=== PATIENT | male | born 1935 | race Caucasian/White ===

== ENCOUNTER 2018-06-15 19:46 | Inpatient (IN) | payer MEDICARE, OTHER ==
[2018-06-15] MEDS ORDERED: IPRATROPIUM/ALBUTEROL 0.5-2.5 MG/3 ML AMPUL NEB ONE (20:14)
[2018-06-15 20:22] LABS: ABSOLUTE BASOPHILS # (AUTO) 0.1 10^3/uL (0.0-0.2); ABSOLUTE EOSINOPHILS # (AUTO) 0.1 10^3/uL (0.0-0.6); ABSOLUTE LYMPHOCYTES (AUTO) 1.7 10^3/uL (0.5-4.7); ABSOLUTE MONOCYTES (AUTO) 1.4 10^3/uL (0.1-1.4); ABSOLUTE NEUT (AUTO) 6.2 10^3/uL (1.7-8.2); BASOPHILS % (AUTO) 0.7 % (0-2); HEMATOCRIT 36.6 % (37.9-51.0); HEMOGLOBIN 12.3 g/dL (13.5-17.0); LYMPHOCYTES % (AUTO) 17.5 % (13-45); MEAN CORPUSCULAR HEMOGLOBIN 33.1 pg (27.0-33.4); MEAN CORPUSCULAR HGB CONC 33.6 g/dL (32.0-36.0); MEAN CORPUSCULAR VOLUME 98 fl (80-97); MONOCYTES % (AUTO) 15.2 % (3-13); PLATELET COUNT 218 10^3/uL (150-450); RED BLOOD COUNT 3.72 10^6/uL (4.35-5.55); RED CELL DISTRIBUTION WIDTH 13.7 % (11.5-14.0); SEGMENTED NEUTROPHILS % (AUTO) 65.6 % (42-78); TOTAL CELLS COUNTED % (AUTO) 100 %; WHITE BLOOD COUNT 9.5 10^3/uL (4.0-10.5)
--- NOTE | 2018-06-15 20:24 | ER Document Report ---
ED General - General Chief Complaint: Shortness Of Breath Stated Complaint: SHORTNESS OF BREATH Time Seen by Provider: 06/15/18 19:51 Notes: Patient is an 83-year-old male with a past medical history of COPD, hypertension, presents complaining of 3 days of progressively worsening shortness of breath. Patient reports that he has been using his Advair inhaler but does not have a rescue albuterol inhaler at home. Family states that his work of breathing progressively worsened to the point where EMS was contacted today. Patient states that he feels somewhat improved after receiving nebulizers and steroids from EMS. Exertion seems to worsen his symptoms. The patient apparently had worsening of his symptoms after pesticides were sprayed near his home and this may be the trigger for his worsening shortness of breath per family. The patient has not had fever but has had intermittent cough without sputum production. Denies a history of such a severe exacerbation in the has not seen his primary care physician regarding today's concerns. - Related Data Allergies/Adverse Reactions: No Known Allergies Allergy (Unverified 06/15/18 20:07) Past Medical History - General Information source: Patient - Social History Smoking Status: Former Smoker Frequency of alcohol use: None Drug Abuse: None Lives with: Family Family History: Reviewed & Not Pertinent Patient has suicidal ideation: No Patient has homicidal ideation: No - Past Medical History Cardiac Medical History: Reports: Hx Atrial Fibrillation, Hx Hypertension Pulmonary Medical History: Reports: Hx COPD Renal/ Medical History: Denies: Hx Peritoneal Dialysis Review of Systems - Review of Systems Notes: Constitutional: Negative for fever. HENT: Negative for sore throat. Eyes: Negative for visual changes. Cardiovascular: Negative for chest pain. Respiratory: Positive for shortness of breath. Gastrointestinal: Negative for abdominal pain, vomiting or diarrhea. Genitourinary: Negative for dysuria. Musculoskeletal: Negative for back pain. Skin: Negative for rash. Neurological: Negative for headaches, weakness or numbness. 10 point ROS negative except as marked above and in HPI. Physical Exam - Vital signs Vitals: Resp Pulse Ox 26 H 95 06/15/18 19:50 06/15/18 19:50 Interpretation: Tachypneic Notes: PHYSICAL EXAMINATION: GENERAL: Elderly male, mildly unwell and in mild respiratory distress HEAD: Atraumatic, normocephalic. EYES: Pupils equal round and reactive to light, extraocular movements intact, sclera anicteric, conjunctiva are normal. ENT: nares patent, oropharynx clear without exudates. Moderately dry mucous membranes. NECK: Normal range of motion, supple without lymphadenopathy LUNGS: Mild respiratory distress, pursed lip breathing, tachypneic rates into the upper 20s with diminished air movement in all lung ramos and coarse expiratory wheezing throughout. HEART: Regular rate and rhythm, 4/6 systolic ejection murmur ABDOMEN: Soft, nontender, normoactive bowel sounds. No guarding, no rebound. No masses appreciated. EXTREMITIES: Normal range of motion, no pitting or edema. No cyanosis. NEUROLOGICAL: No focal neurological deficits. Moves all extremities spontaneously and on command. PSYCH: Normal mood, normal affect. SKIN: Warm, Dry, normal turgor, no rashes or lesions noted. Course - Re-evaluation Re-evalutation: 06/15/18 20:23 Patient presents in mild respiratory distress, very poor air movement in all lung ramos, intermittent retractions in the abdominal region mildly tachypneic into the 20s on initial respiratory assessment. Patient will be placed on continuous albuterol ipratropium nebulizers, 2 g of magnesium will be administered. He has already received 125 mg of Solu-Medrol IV prior to my assessment by EMS. I do not think that he requires BiPAP at this juncture but if he does not have improvement of his respiratory effort will be transition to BiPAP. Chest x-ray shows emphysematous changes. Labs are pending. Will continue to reassess at regular intervals. He is in guarded condition currently. 06/15/18 21:28 Patient's work of breathing somewhat improved although he continues to have pursed lips with breathing, chest x-ray has been read as a possible right upper lobe pneumonia BNP is elevated although patient does not clinically have a presentation consistent with CHF. Ceftriaxone and azithromycin have been started. 10 mg of additional albuterol nebulizers will be ordered has a continuous [id number] neb. Will continue to reassess regularly 06/15/18 22:20 06/15/18 22:21 Patient work of breathing is overall improving although he continues to have slight pursed lip breathing. I have discussed with Dr. Irvin his primary care physician who has accepted him for inpatient services. - Vital Signs Vital signs: Temp Pulse Resp BP Pulse Ox 97.9 F 50 L 23 H 179/69 H 97 06/15/18 19:51 06/16/18 00:26 06/16/18 00:26 06/15/18 19:51 06/16/18 00:26 - Laboratory Result Diagrams: 06/15/18 19:50 06/15/18 19:50 Laboratory results interpreted by me: 06/15/18 06/15/18 06/15/18 19:50 19:50 19:50 RBC 3.72 L Hgb 12.3 L Hct 36.6 L MCV 98 H Monocytes % 15.2 H BUN 29 H Creatinine 1.88 H Est GFR ( Amer) 42 L Est GFR (Non-Af Amer) 34 L Calcium 10.3 H ALT 14 L NT-Pro-B Natriuret Pep 7520 H - Diagnostic Test Radiology reviewed: Image reviewed, Reports reviewed Radiology results interpreted by me: 06/16/18 01:32 Chest x-ray: Hyperinflated, patchy infiltrate in the right upper lobe - EKG Interpretation by Me Additional EKG results interpreted by me: 06/16/18 01:33 Accelerated junctional escape rhythm, rate 53. No ST elevations or depressions. QTC is 410. Critical Care Note - Critical Care Note Total time excluding time spent on procedures (mins): 40 Comments: Critical care time spent obtaining history from patient or surrogate, discussions with consultants, development of treatment plan with patient or surrogate, evaluation of patient's response to treatment, examination of patient, ordering and performing treatments and interventions, ordering and review of laboratory studies, re-evaluation of patient's condition, ordering and review of radiographic studies and review of old charts Discharge - Discharge Clinical Impression: COPD exacerbation, Respiratory distress Right upper lobe pneumonia Qualifiers: Pneumonia type: due to unspecified organism Qualified Code(s): J18.1 - Lobar pneumonia, unspecified organism Condition: Fair Disposition: ADMITTED INPATIENT Admitting Provider: [facility] Unit Admitted: [facility]
[2018-06-15] MEDS: MAGNESIUM SULFATE/D5W 1 GM/100 ML RTUPB IV SCH ×2 (20:28→20:49)
--- NOTE | 2018-06-15 20:36 | RADIOLOGY REPORT (SQ) ---
EXAM DESCRIPTION: XR CHEST 1 VIEW COMPLETED DATE/TME: 06/15/2018 19:50 CLINICAL HISTORY: 83 years, Male, difficulty breathing COMPARISON: None. NUMBER OF VIEWS: One TECHNIQUE: Single frontal view of the chest was obtained portably LIMITATIONS: None. FINDINGS: Cardiac and mediastinal contours appear normal. Patchy opacity is suspected about the right upper lung zone. Additional bandlike opacity is noted about the right midlung zone, either indicating atelectasis or scar. There is blunting of both costophrenic sulci. IMPRESSION: Patchy opacity about the right upper lung zone. Consider atelectasis or pneumonia to include aspiration. Follow-up to clearing is suggested. Blunting of both costophrenic sulci, either indicating small pleural effusions or pleural thickening. copyright 2010 [employer]- All Rights Reserved
[2018-06-15 20:42] LABS: ALANINE AMINOTRANSFERASE 14 U/L (21-72); ALBUMIN 3.9 g/dL (3.5-5.0); ALKALINE PHOSPHATASE 72 U/L (38-126); ANION GAP 10 (5-19); ASPARTATE AMINO TRANSFERASE 22 U/L (17-59); BILIRUBIN,DIRECT 0.4 mg/dL (0.0-0.4); BILIRUBIN,TOTAL 0.8 mg/dL (0.2-1.3); BLOOD UREA NITROGEN 29 mg/dL (7-20); CALCIUM 10.3 mg/dL (8.4-10.2); CARBON DIOXIDE 23 mmol/L (22-30); CHLORIDE 104 mmol/L (98-107); GLUCOSE 106 mg/dL (75-110); POTASSIUM 4.8 mmol/L (3.6-5.0); SODIUM 137.4 mmol/L (137-145); TOTAL PROTEIN 7.1 g/dL (6.3-8.2)
[2018-06-15] MEDS ORDERED: ALBUTEROL SULFATE 0.083% NEB 2.5 MG/3 ML AMPUL NEB ONE (21:28)
[2018-06-15] MEDS ORDERED: CEFTRIAXONE INJ 1000 MG VIAL IV ONE (21:28)
[2018-06-15] MEDS ORDERED: AZITHROMYCIN 250 MG TABLET PO ONE (21:28)
[2018-06-15] MEDS ORDERED: ACETAMINOPHEN 325 MG TABLET PO PRN (22:27)
[2018-06-15] MEDS ORDERED: GUAIFENESIN SYRP 200 MG/10 ML UDC PO PRN (22:27)
[2018-06-15] MEDS ORDERED: GUAIFENESIN 600 MG TABLET.SA PO ONE (23:00)
[2018-06-15] MEDS ORDERED: FUROSEMIDE INJ/PF 20 MG/2 ML SDV IV ONE (23:00)
[2018-06-15] MEDS ORDERED: FAMOTIDINE 20 MG TABLET PO ONE (23:00)
[2018-06-15] MEDS ORDERED: METHYLPREDNISOLONE INJ 40 MG/1 ML SDV IV ONE (23:20)
[2018-06-16] MEDS: LEVALBUTEROL HCL NEB 1.25 MG/3 ML AMPUL NEB SCH ×6 (00:23→20:14)
[2018-06-16 03:47] LABS: HEMATOCRIT 34.9 % (37.9-51.0); HEMOGLOBIN 11.6 g/dL (13.5-17.0); MEAN CORPUSCULAR HEMOGLOBIN 32.6 pg (27.0-33.4); MEAN CORPUSCULAR HGB CONC 33.4 g/dL (32.0-36.0); MEAN CORPUSCULAR VOLUME 98 fl (80-97); PLATELET COUNT 200 10^3/uL (150-450); RED BLOOD COUNT 3.57 10^6/uL (4.35-5.55); RED CELL DISTRIBUTION WIDTH 13.9 % (11.5-14.0); WHITE BLOOD COUNT 8.1 10^3/uL (4.0-10.5)
[2018-06-16 04:34] LABS: ANION GAP 11 (5-19); BLOOD UREA NITROGEN 32 mg/dL (7-20); CARBON DIOXIDE 21 mmol/L (22-30); CHLORIDE 105 mmol/L (98-107); GLUCOSE 213 mg/dL (75-110); POTASSIUM 4.4 mmol/L (3.6-5.0); SODIUM 137.1 mmol/L (137-145)
--- NOTE | 2018-06-16 08:09 | EKG REPORT ---
SEVERITY:- ABNORMAL ECG - ACCELERATED JUNCTIONAL ESCAPE RHYTHM POSSIBLE OLD ANTEROSEPTAL MT : Confirmed by: Silas Rosado MD 16-Jun-2018 08:08:40
[2018-06-16] MEDS: METHYLPREDNISOLONE INJ 40 MG/1 ML SDV IV SCH ×3 (08:26→21:50)
[2018-06-16] MEDS: TAMSULOSIN HCL 0.4 MG CAP.SR.24H PO SCH (09:59)
[2018-06-16] MEDS: FAMOTIDINE 20 MG TABLET PO SCH ×2 (09:59→21:50)
[2018-06-16] MEDS: ASPIRIN 81 MG TABLET, ENT COATED PO SCH (09:59)
[2018-06-16] MEDS: VERAPAMIL HCL 180 MG TABLET.SA PO SCH ×2 (09:59→21:49)
[2018-06-16] MEDS: GUAIFENESIN 600 MG TABLET.SA PO SCH ×2 (09:59→21:49)
[2018-06-16] MEDS: ALLOPURINOL 100 MG TABLET PO SCH (10:00)
[2018-06-16] MEDS: FLUTICASONE/VILANTEROL 100-25 MCG/DOSE IH SCH (10:00)
[2018-06-16] MEDS ORDERED: FUROSEMIDE INJ/PF 20 MG/2 ML SDV IV SCH ×2 (10:00)
[2018-06-16] MEDS: ENOXAPARIN SODIUM INJ 30 MG/0.3 ML DISP.SYRIN SUBCUT SCH (10:02)
--- NOTE | 2018-06-16 13:34 | PDOC H&P ---
History of Present Illness Admission Date/PCP: 06/15/18 22:55 JULIA ESPAÑA MD Patient complains of: Shortness of the breath History of Present Illness: FAHEEM TOMAS is a 83 year old male This is a 83-year-old male with a history of the hypertension diastolic co ngestive heart failure chronic A. fib unable to tolerate anticoagulation in patients who do not want to do that chronic kidney disease stage III with the baseline creatinine is 1.7 history of the COPD came to the emergency department with a complaining of cough congestions for the last 4 days not getting better in the ER patient was tachypneic and also found the pneumonia patient was giving the IV Solu-Medrol and IV antibiotics and nebulizer treatments Patient's currently feeling better still requiring 2 L nasal cannula Patient have a leg swelling in the ER when he came first but he usually patient have that at nighttime and usually resolve during the morning when I saw the patient's there was no leg swelling Patient's denied any chest pain Patient still having some cough with productive sputum Patient's denied any fever no chills Past Medical History Cardiac Medical History: Reports: Atrial Fibrillation, Congestive Heart Failure, Hyperlipidema, Hypertension Pulmonary Medical History: Reports: Chronic Obstructive Pulmonary Disease (COPD) Renal/ Medical History: Reports: Chronic Kidney Disease GI Medical History: Reports: Gastroesophageal Reflux Disease Musculoskeltal Medical History: Reports: Arthritis Social History Lives with: Family Smoking Status: Former Smoker Frequency of Alcohol Use: Rare Hx Recreational Drug Use: No Hx Prescription Drug Abuse: No Family History Family History: Reviewed & Not Pertinent Parental Family History Reviewed: Yes Children Family History Reviewed: Yes Sibling(s) Family History Reviewed.: Yes Medication/Allergy Home Medications: Allopurinol [Zyloprim 100 mg Tablet] 100 mg PO DAILY 06/16/18 Aspirin [Ecotrin 81 mg EC Tablet] 81 mg PO DAILY 06/16/18 Fluticasone/Salmeterol [Advair 100-50 Diskus 14 Dose/Diskus] 1 puff IH Q12 06/16/18 Furosemide [Lasix 20 mg Tablet] 20 mg PO DAILY 06/16/18 Omeprazole 40 mg PO DAILY 06/16/18 Pravastatin Sodium [Pravachol] 20 mg PO DAILY 06/16/18 Tamsulosin HCl [Flomax 0.4 mg Cap.sr] 0.4 mg PO DAILY 06/16/18 Verapamil HCl [Verapamil ER] 180 mg PO Q12 06/16/18 Allergies/Adverse Reactions: No Known Allergies Allergy (Unverified 06/15/18 20:07) Review of Systems Constitutional: PRESENT: fatigue. ABSENT: chills, fever(s), headache(s), weight gain, weight loss Eyes: ABSENT: visual disturbances Ears: ABSENT: hearing changes Cardiovascular: PRESENT: dyspnea on exertion. ABSENT: chest pain, edema, orthropnea, palpitations Respiratory: PRESENT: cough, dyspnea, sputum. ABSENT: hemoptysis Gastrointestinal: ABSENT: abdominal pain, constipation, diarrhea, hematemesis, hematochezia, nausea, vomiting Genitourinary: ABSENT: dysuria, hematuria Musculoskeletal: ABSENT: joint swelling Integumentary: ABSENT: rash, wounds Neurological: ABSENT: abnormal gait, abnormal speech, confusion, dizziness, focal weakness, syncope Psychiatric: ABSENT: anxiety, depression, homidical ideation, suicidal ideation Endocrine: ABSENT: cold intolerance, heat intolerance, menstrual abnormalities, polydipsia, polyuria Hematologic/Lymphatic: ABSENT: easy bleeding, easy bruising, lymphadenopathy Physical Exam Vital Signs: Temp Pulse Resp BP Pulse Ox 97.9 F 50 L 20 165/65 H 95 06/15/18 19:51 06/16/18 07:39 06/16/18 11:31 06/16/18 11:31 06/16/18 11:31 Intake & Output 06/15/18 06/16/18 06/17/18 06:59 06:59 06:59 Intake Total 200 Balance 200 Weight 76 kg General appearance: PRESENT: no acute distress, well-developed, well-nourished Head exam: PRESENT: atraumatic, normocephalic Eye exam: PRESENT: conjunctiva pink, EOMI, PERRLA. ABSENT: scleral icterus Ear exam: PRESENT: normal external ear exam Mouth exam: PRESENT: moist, tongue midline Neck exam: PRESENT: full ROM. ABSENT: carotid bruit, JVD, lymphadenopathy, thyromegaly Respiratory exam: PRESENT: decreased breath sounds Cardiovascular exam: PRESENT: irregular rhythm, +S1, +S2. ABSENT: diastolic murmur, rubs, systolic murmur Vascular exam: PRESENT: normal capillary refill GI/Abdominal exam: PRESENT: normal bowel sounds, soft. ABSENT: distended, guarding, mass, organolmegaly, rebound, tenderness Rectal exam: PRESENT: deferred Extremities exam: ABSENT: pedal edema Neurological exam: PRESENT: alert, awake, oriented to person, oriented to place, oriented to time, oriented to situation, CN II-XII grossly intact. ABSENT: motor sensory deficit Psychiatric exam: PRESENT: appropriate affect, normal mood. ABSENT: homicidal ideation, suicidal ideation Skin exam: PRESENT: dry, intact, warm. ABSENT: cyanosis, rash Results Laboratory Results: 06/16/18 03:25 06/16/18 03:25 06/15/18 06/15/18 06/16/18 19:50 19:50 03:25 WBC 9.5 8.1 RBC 3.72 L 3.57 L Hgb 12.3 L 11.6 L Hct 36.6 L 34.9 L MCV 98 H 98 H MCH 33.1 32.6 MCHC 33.6 33.4 RDW 13.7 13.9 Plt Count 218 200 Seg Neutrophils % 65.6 Lymphocytes % 17.5 Monocytes % 15.2 H Eosinophils % 1.0 Basophils % 0.7 Absolute Neutrophils 6.2 Absolute Lymphocytes 1.7 Absolute Monocytes 1.4 Absolute Eosinophils 0.1 Absolute Basophils 0.1 Sodium 137.4 Potassium 4.8 Chloride 104 Carbon Dioxide 23 Anion Gap 10 BUN 29 H Creatinine 1.88 H Est GFR ( Amer) 42 L Est GFR (Non-Af Amer) 34 L Glucose 106 Calcium 10.3 H Magnesium Total Bilirubin 0.8 AST 22 ALT 14 L Alkaline Phosphatase 72 Total Protein 7.1 Albumin 3.9 06/16/18 06/16/18 03:25 03:25 WBC RBC Hgb Hct MCV MCH MCHC RDW Plt Count Seg Neutrophils % Lymphocytes % Monocytes % Eosinophils % Basophils % Absolute Neutrophils Absolute Lymphocytes Absolute Monocytes Absolute Eosinophils Absolute Basophils Sodium 137.1 Potassium 4.4 Chloride 105 Carbon Dioxide 21 L Anion Gap 11 BUN 32 H Creatinine 2.07 H Est GFR ( Amer) 37 L Est GFR (Non-Af Amer) 31 L Glucose 213 H Calcium 10.0 Magnesium 2.8 H Total Bilirubin AST ALT Alkaline Phosphatase Total Protein Albumin 06/15/18 06/16/18 19:50 03:25 NT-Pro-B Natriuret Pep 7520 H 7380 H Impressions: Chest X-Ray 06/15/18 19:50 IMPRESSION: Patchy opacity about the right upper lung zone. Consider atelectasis or pneumonia to include aspiration. Follow-up to clearing is suggested. Blunting of both costophrenic sulci, either indicating small pleural effusions or pleural thickening. copyright 2010 [employer]- All Rights Reserved Assessment & Plan - Diagnosis (1) Right upper lobe pneumonia Qualifiers: Pneumonia type: due to unspecified organism Qualified Code(s): J18.1 - Lobar pneumonia, unspecified organism Is this a current diagnosis for this admission?: Yes Plan: Start the patient on IV Rocephin and Zithromax get the sputum culture (2) COPD exacerbation Is this a current diagnosis for this admission?: Yes Plan: Nebulizer treatment and IV Solu-Medrol (3) Respiratory distress Is this a current diagnosis for this admission?: Yes Plan: Continues to current medications and nebulizer and oxygen we will consult the pulmonary (4) Chronic kidney disease Qualifiers: Chronic kidney disease stage: stage 3 (moderate) Qualified Code(s): N18.3 - Chronic kidney disease, stage 3 (moderate) Is this a current diagnosis for this admission?: Yes Plan: Currently worsening the kidney functions due to the above conditions continues to monitor (5) Diastolic congestive heart failure Qualifiers: Heart failure chronicity: chronic Qualified Code(s): I50.32 - Chronic diastolic (congestive) heart failure Is this a current diagnosis for this admission?: Yes Plan: Will get the echocardiograms consult the cardiology for further evaluations continues to Lasix 20 mg p.o. daily (6) Hypertension Qualifiers: Hypertension type: essential hypertension Qualified Code(s): I10 - Essential (primary) hypertension Is this a current diagnosis for this admission?: Yes Plan: Currently all stable (7) Hyperlipidemia Qualifiers: Hyperlipidemia type: unspecified Qualified Code(s): E78.5 - Hyperlipidemia, unspecified Is this a current diagnosis for this admission?: Yes (8) Chronic atrial fibrillation Is this a current diagnosis for this admission?: Yes Plan: Continues the calcium channel bambi patients do not want and anticoagulations because of the bleeding issue in the past patient understand the risk and benefit of not taking the anticoagulations - Time Time Spent: 50 to 70 Minutes Medications reviewed and adjusted accordingly: Yes Anticipated discharge: Home Within: Other - Inpatient Certification Based on my medical assessment, after consideration of the patient's comorbidities, presenting symptoms, or acuity I expect that the services needed warrant INPATIENT care.: Yes I certify that my determination is in accordance with my understanding of Medicare's requirements for reasonable and necessary INPATIENT services [42 CFR 412.3e].: Yes Medical Necessity: Significant Comorbidiites Make Outpatient Treatment Too Risky, Need For Continuous Telemetry Monitoring, Need for Nebulizer Therapy and Monitoring of Response, Need for IV Antibiotics Post Hospital Care: D/C Extension Supervisor Documentation - Plan Summary Plan Summary: Admit the patient in IMCU
[2018-06-16] MEDS: AZITHROMYCIN 500 MG in DEXTROSE 5%-WATER 250 ML IV SCH (20:14)
--- NOTE | 2018-06-16 20:27 | XCELERA REPORT ---
[address] [address] Transthoracic Echocardiogram Report Name: FAHEEM TOMAS Age: 83 yrs Gender: Male : 1935 Patient Status: Inpatient Patient Location: [place] [address]^A Study Date: 06/16/2018 01:47 PM Height: 69 in Weight: 167 lb BSA: 1.9 m2 Procedure: A two-dimensional transthoracic echocardiogram with color flow and Doppler was performed. The study was technically difficult with many images being suboptimal in quality. Reason For Study: chf History: CHF. Ordering Physician: JULIA ESPAÑA Performed By: Melita Elmore Interpretation Summary The left ventricle is normal in size. There is normal left ventricular wall thickness. LV EF is > wayne 60% The left ventricular ejection fraction is within normal limits. LV diastolic function could not be adequately assessed due to atrial fibrilation. The left ventricular wall motion is normal. There is no thrombus. Probably no ASD , VSD , or PFO. The right ventricle is mildly dilated. The right atrium is mild to moderately dilated. The left atrium is severely dilated. There is moderate mitral annular calcification. There is no evidence of mitral valve prolapse. There is no vegetation seen on the mitral valve. There is no mitral valve stenosis. There is a moderate amount of mitral regurgitation There is mild to moderate aortic stenosis There is a peak gradient of 39 mm of Hg. There is a mild amount of aortic regurgitation There is no tricuspid stenosis. There is a moderate amount of tricuspid regurgitation There is moderate pulmonary hypertension by echo RVSP is 50 to 55 mm of Hg , with RA mean of 10 to 15. There is no pulmonic valvular stenosis. There is no pulmonic valvular regurgitation. The aortic root is not well visualized but is probably normal size. The inferior vena cava appeared normal and decreased < 50% with respiration (RAP 10-15 mmHg) There is no pericardial effusion. MMode/2D Measurements & Calculations IVSd: 0.83 cm LVIDd: 5.0 cm FS: 33.7 % Ao root diam: 3.3 cm LVIDs: 3.3 cm EDV(Teich): 118.1 ml Ao root area: 8.3 cm2 LVPWd: 1.1 cm ESV(Teich): 44.7 ml EF(Teich): 62.2 % Doppler Measurements & Calculations Ao V2 max: AI max yaniv: LV V1 max PG: PA V2 max: 310.7 cm/sec 284.4 cm/sec 7.9 mmHg 75.2 cm/sec Ao max PG: AI max P.4 mmHg LV V1 mean PG: PA max P.7 mmHg AI dec slope: 4.1 mmHg 2.3 mmHg Ao V2 mean: 117.1 cm/sec2 LV V1 max: 202.6 cm/sec AI P1/2t: 711.3 msec 140.1 cm/sec Ao mean PG: LV V1 mean: 19.4 mmHg 91.8 cm/sec Ao V2 VTI: 62.0 cm LV V1 VTI: 28.3 cm LV dP/dt: 2847 mmHg/s TR max yaniv: 315.6 cm/sec TR max P.8 mmHg Left Ventricle The left ventricle is normal in size. There is normal left ventricular wall thickness. LV EF is > wayne 60%. The left ventricular ejection fraction is within normal limits. LV diastolic function could not be adequately assessed due to atrial fibrilation. The left ventricular wall motion is normal. There is no thrombus. Probably no ASD , VSD , or PFO. Right Ventricle The right ventricle is mildly dilated. The right ventricle is not well visualized secondary to technical limitations. Atria The right atrium is mild to moderately dilated. The left atrium is severely dilated. Mitral Valve There is moderate mitral annular calcification. There is no evidence of mitral valve prolapse. There is no vegetation seen on the mitral valve. There is no mitral valve stenosis. There is a moderate amount of mitral regurgitation. Aortic Valve There is no aortic valvular vegetation. There is mild to moderate aortic stenosis. There is a peak gradient of 39 mm of Hg. There is a mild amount of aortic regurgitation. Tricuspid Valve There is no tricuspid stenosis. There is a moderate amount of tricuspid regurgitation. There is moderate pulmonary hypertension by echo. RVSP is 50 to 55 mm of Hg , with RA mean of 10 to 15. Pulmonic Valve There is no pulmonic valvular stenosis. There is no pulmonic valvular regurgitation. Great Vessels The aortic root is not well visualized but is probably normal size. The inferior vena cava appeared normal and decreased < 50% with respiration (RAP 10-15 mmHg). Effusions There is no pericardial effusion. : JULIA ESPAÑA > Tricia Huitron
[2018-06-16] MEDS: ATORVASTATIN CALCIUM 10 MG TABLET PO SCH (21:49)
[2018-06-16] MEDS ORDERED: CEFTRIAXONE 1 GM/D5W RTU 1 GM/50 ML RTUPB IV SCH (22:00)
[2018-06-16] MEDS: CEFTRIAXONE SODIUM 1,000 MG in DEXTROSE 5%-WATER 50 ML IV SCH (22:01)
[2018-06-17] MEDS: LEVALBUTEROL HCL NEB 1.25 MG/3 ML AMPUL NEB SCH ×6 (00:04→20:22)
[2018-06-17 05:28] LABS: HEMATOCRIT 33.5 % (37.9-51.0); HEMOGLOBIN 11.3 g/dL (13.5-17.0); MEAN CORPUSCULAR HEMOGLOBIN 32.4 pg (27.0-33.4); MEAN CORPUSCULAR HGB CONC 33.7 g/dL (32.0-36.0); MEAN CORPUSCULAR VOLUME 96 fl (80-97); PLATELET COUNT 195 10^3/uL (150-450); RED BLOOD COUNT 3.48 10^6/uL (4.35-5.55); RED CELL DISTRIBUTION WIDTH 13.7 % (11.5-14.0)
[2018-06-17] MEDS: METHYLPREDNISOLONE INJ 40 MG/1 ML SDV IV SCH (05:30)
--- NOTE | 2018-06-17 05:40 | CONSULTATION REPORT E ---
Consultation Report NAME: FAHEEM TOMAS : 1935 AGE: 83Y DATE: 06/16/2018 303 A TO: LOLIS ARRIAZA M.D. FROM: JULIA ESPAÑA M.D. Requesting Physician HISTORY OF PRESENT ILLNESS: The patient is an 83-year-old male who came in with increased shortness of breath about 4 days ago. The patient claimed that he is coughing frequently, but denies any purulent sputum production or hemoptysis or chest pain. On admission, the patient got a chest x-ray, showing infiltrate in the right upper lobe, and was treated with antibiotic and IV Solu-Medrol for pneumonia. Currently, the patient is a lot better. He denies any hemoptysis. No chest pain. No nausea, vomiting, diarrhea. Breathing a lot better. PAST MEDICAL HISTORY: 1. Atrial fibrillation. 2. Congestive heart failure. 3. Hyperlipidemia. 4. Hypertension. 5. COPD. 6. Chronic kidney disease. 7. Gastroesophageal reflux. 8. Arthritis. SOCIAL HISTORY: He lives with family. He used to smoke before, about a pack a day for about 38 years; quit about 4 years ago. Denies alcohol abuse or illicit drug use. FAMILY HISTORY: Reviewed and was not pertinent. MEDICATION ALLERGIES: None. MEDICATIONS: At home include: 1. Allopurinol. 2. Aspirin. 3. Advair 100. 4. Lasix 20. 5. Prilosec 40 mg. 6. Lovastatin. 7. Pravachol. 8. Flomax. 9. Verapamil. REVIEW OF SYSTEMS: CONSTITUTIONAL: No fever or chills. Complained about fatigue. EYES: No eye pain or blurry vision. EARS: No ear discharge. RESPIRATION: Complained about increased shortness of breath, increased coughing, but not productive. No hemoptysis. CARDIAC: No chest pain or palpitations. GASTROINTESTINAL: No nausea, vomiting, diarrhea. GENITOURINARY: No dysuria or hematuria. Positive bowel sounds. EXTREMITIES: No joint swelling or cellulitis. PHYSICAL EXAMINATION: GENERAL: The patient is awake, alert, coherent, oriented x3. VITAL SIGNS: Temperature is 97.9, with a heart rate of 57, blood pressure of 169/79. Saturation is 98% on 2 L. EYES: No jaundice or pallor. EARS, NOSE, AND THROAT: No ear drainage. No nasal discharge. CHEST AND LUNGS: No wheezing. No rhonchi. No coarse crackles. CARDIOVASCULAR: S1, S2 distinct. Normal rate, regular rhythm. ABDOMEN: Flabby. Positive bowel sounds. Soft, nondistended, nontender. EXTREMITIES: No joint swelling or cellulitis. LABORATORY: CBC done today showed white count of 8.1, hemoglobin 11.6, hematocrit is 34.9, and platelet count is 200. Chemistry done today shows sodium is 135, potassium 34.4, chloride 105, CO2 is 21, BUN 32, creatinine is 2.07, glucose 213, and calcium is 10, magnesium 2.8. NT-BNP is 7318. Chest x-ray done yesterday showed opacity in the right upper lobe. Some suspicious infiltrate in both perihilar areas. PLAN AND RECOMMENDATIONS: 1. We will do a chest CT scan tomorrow without contrast to evaluate the right upper lobe infiltrate carefully. 2. We agree with BREO 100 mcg 1 puff once daily and nebulizer treatment every 6 hours. This includes Xopenex. 3. Agree with antibiotics, Rocephin and Zithromax for now, for empiric treatment for pneumonia. DICTATING PHYSICIAN: LOLIS ARRIAZA MD,YASIR,MPH [id number] PHY#: [id number] ID: [id number] JOB#: [id number] ACCT: [id number] cc:LOLIS ARRIAZA M.D. > MTDD
[2018-06-17 05:53] LABS: ANION GAP 12 (5-19); BLOOD UREA NITROGEN 51 mg/dL (7-20); CALCIUM 9.7 mg/dL (8.4-10.2); CARBON DIOXIDE 19 mmol/L (22-30); CHLORIDE 104 mmol/L (98-107); GLUCOSE 149 mg/dL (75-110); POTASSIUM 4.7 mmol/L (3.6-5.0); SODIUM 134.8 mmol/L (137-145)
[2018-06-17 06:04] LABS: WHITE BLOOD COUNT 20.6 10^3/uL (4.0-10.5)
--- NOTE | 2018-06-17 08:53 | PDOC PROGRESS REPORT ---
Subjective Progress Note for:: 06/17/18 Subjective:: Patient is currently doing fair Patient's denied any chest pain any shortness of the breath Patient with no fever Scheduled for the CT of the chest today pulmonary Patient to kidney function is still not improving Reason For Visit: PNEUMONIA Physical Exam Vital Signs: Temp Pulse Resp BP Pulse Ox 98.2 F 42 L 24 H 149/56 H 99 06/17/18 07:31 06/17/18 07:31 06/17/18 07:31 06/17/18 07:31 06/17/18 07:31 Intake & Output 06/16/18 06/17/18 06/18/18 06:59 06:59 06:59 Intake Total 200 300 Output Total 0 Balance 200 300 Weight 76 kg 78.1 kg General appearance: PRESENT: no acute distress, well-developed, well-nourished Head exam: PRESENT: atraumatic, normocephalic Eye exam: PRESENT: conjunctiva pink, EOMI, PERRLA. ABSENT: scleral icterus Ear exam: PRESENT: normal external ear exam Mouth exam: PRESENT: moist, tongue midline Neck exam: PRESENT: full ROM. ABSENT: carotid bruit, JVD, lymphadenopathy, thyromegaly Respiratory exam: PRESENT: clear to auscultation melania Cardiovascular exam: PRESENT: irregular rhythm. ABSENT: diastolic murmur, rubs, systolic murmur Vascular exam: PRESENT: normal capillary refill GI/Abdominal exam: PRESENT: normal bowel sounds, soft. ABSENT: distended, guarding, mass, organolmegaly, rebound, tenderness Rectal exam: PRESENT: deferred Extremities exam: ABSENT: pedal edema Musculoskeletal exam: PRESENT: ambulatory Neurological exam: PRESENT: alert, awake, oriented to person, oriented to place, oriented to time, oriented to situation, CN II-XII grossly intact. ABSENT: motor sensory deficit Psychiatric exam: PRESENT: appropriate affect, normal mood. ABSENT: homicidal ideation, suicidal ideation Skin exam: PRESENT: dry, intact, warm. ABSENT: cyanosis, rash Results Laboratory Results: 06/17/18 04:15 06/17/18 04:15 06/16/18 06/17/18 06/17/18 03:25 04:15 04:15 WBC 20.6 H D RBC 3.48 L Hgb 11.3 L Hct 33.5 L MCV 96 MCH 32.4 MCHC 33.7 RDW 13.7 Plt Count 195 Sodium 134.8 L Potassium 4.7 Chloride 104 Carbon Dioxide 19 L Anion Gap 12 BUN 51 H Creatinine 2.16 H Est GFR ( Amer) 35 L Est GFR (Non-Af Amer) 29 L Glucose 149 H Calcium 9.7 Magnesium 2.8 H 06/15/18 06/16/18 19:50 03:25 NT-Pro-B Natriuret Pep 7520 H 7380 H Impressions: Chest X-Ray 06/15/18 19:50 IMPRESSION: Patchy opacity about the right upper lung zone. Consider atelectasis or pneumonia to include aspiration. Follow-up to clearing is suggested. Blunting of both costophrenic sulci, either indicating small pleural effusions or pleural thickening. copyright 2011 [employer]- All Rights Reserved Assessment & Plan - Diagnosis (1) Right upper lobe pneumonia Qualifiers: Pneumonia type: due to unspecified organism Qualified Code(s): J18.1 - Lobar pneumonia, unspecified organism Is this a current diagnosis for this admission?: Yes Plan: Will get the CT of the chest today Patient's white count is elevated we will check the lactic acids continue the Rocephin and Zithromax (2) COPD exacerbation Is this a current diagnosis for this admission?: Yes Plan: We will discontinue IV Solu-Medrol (3) Respiratory distress Is this a current diagnosis for this admission?: Yes Plan: Continues to current medications and nebulizer and oxygen we will consult the pulmonary (4) Chronic kidney disease Qualifiers: Chronic kidney disease stage: stage 3 (moderate) Qualified Code(s): N18.3 - Chronic kidney disease, stage 3 (moderate) Is this a current diagnosis for this admission?: Yes Plan: Get the ultrasound for the kidney also discontinue IV Lasix while patient does not need it at this point consult the nephrology (5) Diastolic congestive heart failure Qualifiers: Heart failure chronicity: chronic Qualified Code(s): I50.32 - Chronic diastolic (congestive) heart failure Is this a current diagnosis for this admission?: Yes Plan: The echocardiogram report (6) Hypertension Qualifiers: Hypertension type: essential hypertension Qualified Code(s): I10 - Essential (primary) hypertension Is this a current diagnosis for this admission?: Yes Plan: Currently all stable (7) Hyperlipidemia Qualifiers: Hyperlipidemia type: unspecified Qualified Code(s): E78.5 - Hyperlipidemia, unspecified Is this a current diagnosis for this admission?: Yes (8) Chronic atrial fibrillation Is this a current diagnosis for this admission?: Yes Plan: Continues the calcium channel bambi patients do not want and anticoagulations because of the bleeding issue in the past patient understand the risk and benefit of not taking the anticoagulations - Time Time Spent with patient: 25-34 minutes Medications reviewed and adjusted accordingly: Yes Anticipated discharge: Home - Inpatient Certification Based on my medical assessment, after consideration of the patient's comorbidities, presenting symptoms, or acuity I expect that the services needed warrant INPATIENT care.: Yes I certify that my determination is in accordance with my understanding of Medicare's requirements for reasonable and necessary INPATIENT services [42 CFR 412.3e].: Yes - Plan Summary Plan Summary: Continues to current medications
[2018-06-17] MEDS: FLUTICASONE/VILANTEROL 100-25 MCG/DOSE IH SCH (09:33)
[2018-06-17] MEDS: ASPIRIN 81 MG TABLET, ENT COATED PO SCH (09:34)
[2018-06-17] MEDS: FAMOTIDINE 20 MG TABLET PO SCH ×2 (09:34→22:01)
[2018-06-17] MEDS: ENOXAPARIN SODIUM INJ 30 MG/0.3 ML DISP.SYRIN SUBCUT SCH (09:34)
[2018-06-17] MEDS: GUAIFENESIN 600 MG TABLET.SA PO SCH ×2 (09:34→22:01)
[2018-06-17] MEDS: VERAPAMIL HCL 180 MG TABLET.SA PO SCH ×2 (09:34→22:01)
[2018-06-17] MEDS: PREDNISONE 10 MG TABLET PO SCH ×2 (09:34→17:02)
[2018-06-17] MEDS: ALLOPURINOL 100 MG TABLET PO SCH (09:34)
[2018-06-17] MEDS: TAMSULOSIN HCL 0.4 MG CAP.SR.24H PO SCH (09:51)
--- NOTE | 2018-06-17 10:27 | RADIOLOGY REPORT (SQ) ---
EXAM DESCRIPTION: U/S RETROPERITON LTD COMPLETED DATE/TIME: 06/17/2018 9:54 am REASON FOR STUDY: renal failure COMPARISON: None. TECHNIQUE: Dynamic and static grayscale images acquired of the kidneys and bladder and recorded on P ACS. Additional selected color Doppler and spectral images recorded. LIMITATIONS: None. FINDINGS: RIGHT KIDNEY: Normal size, 10.1 cm. Cortical thinning. Normal echogenicity. No solid masses. Cysts are present. The largest measures 19 mm. No hydronephrosis. No calcifications. LEFT KIDNEY: Normal size, 9.7 cm. Cortical thinning. Normal echogenicity. No solid masses. 16 mm cyst. No hydronephrosis. 2 intrarenal calculi are present. 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 There are a couple of nodular densities in the wall of this outpouching. OTHER FINDINGS: No other significant finding. IMPRESSION: 1. Bilateral cortical thinning. 2. Intrarenal calculi are on the left. 3. 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 TECHNICAL DOCUMENTATION: JOB ID: [id number] [employer]- All Rights Reserved Reading location - IP/workstation name: [email or web address]
--- NOTE | 2018-06-17 11:53 | PDOC CONSULTATION ---
Consultation Consult Date: 06/17/18 Consult reason:: Acute on chronic kidney disease History of Present Illness Admission Date/PCP: 06/15/18 22:55 JULIA ESPAÑA MD History of Present Illness: FAHEEM TOMAS is a 83 year old male with history of chronic hypertension, atrial fibrillation but apparently unable to tolerate anticoagulation - reason he is not sure, diastolic congestive heart failure, COPD, CKD stage III with apparent baseline creatinine of 1.7 was admitted with history of exacerbation of COPD and right upper lobe pneumonia. He has had progressive shortness of breath which is been worsening over the last few days but without any coughing spells or expectoration. He has been begun on appropriate treatments including antibiotics and steroids and today the morning when I see him he is feeling a whole lot b rinku. His imjhltzj-pz-vsd is at the bedside and agrees with that. She denies any history of fever chills or rigors. No complaints of any chest pains. He has no difficulty in urination. He mentions that 1 of his kidneys was told to be smaller than the other. 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 Otherwise unremarkable. He is also got couple of stones without any evidences of obstruction. He also mention s of chronic bilateral leg swelling more so on the left side which is chronic. It usually happens towards the end of the day and is hardly there when he wakes up in the morning. No complaints of any leg pains or any recent prolonged immobilization. However he has noticed that they are persisting more in his left leg during this admission.Labs and medications were reviewed. Discussions were done with his [id number]-gny at the bedside as well as the treating nurse. Past Medical History Cardiac Medical History: Reports: Atrial Fibrillation, CHF-Diastolic, Hyperlipidemia, Hypertension-primary Pulmonary Medical History: Reports: Chronic Obstructive Pulmonary Disease (COPD) Renal/ Medical History: Reports: Chronic Kidney Disease Stage III GI Medical History: Reports: Gastroesophageal Reflux Disease Musculoskeltal Medical History: Reports: Arthritis Social History Lives with: Family Smoking Status: Former Smoker Cigarettes Packs Per Day: 1 Number of Years Smokin Frequency of Alcohol Use: Heavy Hx Recreational Drug Use: No Hx Prescription Drug Abuse: No Family History Parental Family History Reviewed: Yes - Negative for ESRD Children Family History Reviewed: No Sibling(s) Family History Reviewed.: No Medication/Allergy Home Medications: Allopurinol [Zyloprim 100 mg Tablet] 100 mg PO DAILY 06/16/18 Aspirin [Ecotrin 81 mg EC Tablet] 81 mg PO DAILY 06/16/18 Fluticasone/Salmeterol [Advair 100-50 Diskus 14 Dose/Diskus] 1 puff IH Q12 06/16/18 Furosemide [Lasix 20 mg Tablet] 20 mg PO DAILY 06/16/18 Omeprazole 40 mg PO DAILY 06/16/18 Pravastatin Sodium [Pravachol] 20 mg PO DAILY 06/16/18 Tamsulosin HCl [Flomax 0.4 mg Cap.sr] 0.4 mg PO DAILY 06/16/18 Verapamil HCl [Verapamil ER] 180 mg PO Q12 06/16/18 Allergies/Adverse Reactions: No Known Allergies Allergy (Unverified 06/15/18 20:07) Review of Systems Constitutional: PRESENT: fatigue. ABSENT: fever(s), headache(s), night sweats, weakness Nose, Mouth, and Throat: ABSENT: headache(s), mouth pain, sore throat Cardiovascular: PRESENT: dyspnea on exertion, edema, orthropnea. ABSENT: chest pain Respiratory: PRESENT: dyspnea. ABSENT: cough, hemoptysis Gastrointestinal: ABSENT: abdominal pain, bloating, coffee ground emesis, constipation, diarrhea, dysphagia, heartburn, nausea, vomiting Genitourinary: ABSENT: difficulty urinating, dysuria, hematuria Musculoskeletal: ABSENT: back pain, deformity, joint swelling Integumentary: ABSENT: erythema, lesions, pruritus, rash Neurological: ABSENT: abnormal gait, abnormal movements, abnormal speech, confusion, focal weakness, frequent falls, lack of coordination Hematologic/Lymphatic: ABSENT: easy bleeding, easy bruising Physical Exam Vital Signs: Temp Pulse Resp BP Pulse Ox 98.2 F 62 22 H 149/56 H 98 06/17/18 07:31 06/17/18 09:39 06/17/18 09:39 06/17/18 07:31 06/17/18 09:39 Intake & Output 06/16/18 06/17/18 06/18/18 06:59 06:59 06:59 Intake Total 200 300 Output Total 0 Balance 200 300 Weight 76 kg 78.1 kg General appearance: PRESENT: no acute distress Eye exam: PRESENT: conjunctiva pink, EOMI, PERRLA Ear exam: PRESENT: normal external ear exam Mouth exam: PRESENT: moist, neck supple Neck exam: ABSENT: lymphadenopathy, meningismus, tenderness, thyromegaly, tracheal deviation Respiratory exam: PRESENT: clear to auscultation melania, crackles, decreased breath sounds, rhonchi Cardiovascular exam: PRESENT: +S1, +S2 GI/Abdominal exam: PRESENT: normal bowel sounds, soft. ABSENT: organomegaly, tenderness Extremities exam: PRESENT: pedal edema Neurological exam: PRESENT: alert, altered, awake, oriented to person, oriented to place Psychiatric exam: PRESENT: appropriate affect Skin exam: ABSENT: cyanosis, erythema, mottled, rash Results Laboratory Results: 06/17/18 04:15 06/17/18 04:15 06/17/18 06/17/18 04:15 04:15 WBC 20.6 H D RBC 3.48 L Hgb 11.3 L Hct 33.5 L MCV 96 MCH 32.4 MCHC 33.7 RDW 13.7 Plt Count 195 Sodium 134.8 L Potassium 4.7 Chloride 104 Carbon Dioxide 19 L Anion Gap 12 BUN 51 H Creatinine 2.16 H Est GFR ( Amer) 35 L Est GFR (Non-Af Amer) 29 L Glucose 149 H Calcium 9.7 06/15/18 06/16/18 19:50 03:25 NT-Pro-B Natriuret Pep 7520 H 7380 H Impressions: Chest X-Ray 06/15/18 19:50 IMPRESSION: Patchy opacity about the right upper lung zone. Consider atelectasis or pneumonia to include aspiration. Follow-up to clearing is suggested. Blunting of both costophrenic sulci, either indicating small pleural effusions or pleural thickening. copyright 2011 [employer]- All Rights Reserved Renal Ultrasound 06/17/18 00:00 IMPRESSION: 1. Bilateral cortical thinning. 2. Intrarenal calculi are on the left. 3. 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 Assessment & Plan - Diagnosis (1) FIDE (acute kidney injury) Plan: Patient is got AK I secondary to ATN from pneumonia and sepsis. Renal ultrasound is negative for any obstructive uropathy.Would continue on present lines of management and dose medications to GFR of approximately 25-30 cc/min. Avoid nephrotoxic drugs. Continue to follow. (2) COPD exacerbation Is this a current diagnosis for this admission?: Yes Plan: In conjunction with the right upper lobe pneumonia. Patient on antibiotic steroids and inhalers and presently improving. (3) Chronic atrial fibrillation Is this a current diagnosis for this admission?: Yes Plan: Presently rate controlled and stable. (4) Chronic kidney disease Qualifiers: Chronic kidney disease stage: stage 3 (moderate) Qualified Code(s): N18.3 - Chronic kidney disease, stage 3 (moderate) Is this a current diagnosis for this admission?: Yes Plan: As per perusal of notes from Dr. España patient is got underlying CKD stage III with a base creatinine 1.7. 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 (5) Hypertension Qualifiers: Hypertension type: essential hypertension Qualified Code(s): I10 - Essential (primary) hypertension Is this a current diagnosis for this admission?: Yes Plan: Currently fairly controlled. Continue present medications. (6) Right upper lobe pneumonia Qualifiers: Pneumonia type: due to unspecified organism Qualified Code(s): J18.1 - Lobar pneumonia, unspecified organism Is this a current diagnosis for this admission?: Yes Plan: On antibiotics. Monitor. (7) Left leg swelling Plan: Apparently is acute on chronic and persistent. I am going to order a Doppler of his left legs.
[2018-06-17] MEDS: BUSPIRONE HCL 10 MG TABLET PO SCH ×2 (14:32→22:01)
[2018-06-17 14:33] LABS: ARTERIAL BLOOD BASE EXCESS -3.3 mmol/L; ARTERIAL BLOOD H2CO3 1.16 mmol/L (1.05-1.35); ARTERIAL BLOOD HCO3 21.6 mmol/L (20-24); ARTERIAL BLOOD PCO2 38.4 mmHg (35-45); ARTERIAL BLOOD PH 7.37 (7.35-7.45); ARTERIAL BLOOD PO2 83.7 mmHg (80-100); ARTERIAL BLOOD TOTAL CO2 22.8 mmol/L (23-27)
[2018-06-17 14:35] LABS: ARTERIAL BLOOD FIO2 2 L
--- NOTE | 2018-06-17 14:49 | RADIOLOGY REPORT (SQ) ---
EXAM DESCRIPTION: CT CHEST WITHOUT COMPLETED DATE/TIME: 06/17/2018 1:46 pm REASON FOR STUDY: pulmonary infiltrate right upper lobe; r/o maligna COMPARISON: AP chest 06/15/2018 TECHNIQUE: CT scan performed of the chest without intravenous contrast. Images reviewed with lung, soft tissue and bone windows. Reconstructed coronal and sagittal MPR images reviewed. All images st ored on PACS. All CT scanners at this facility use dose modulation, iterative reconstruction, and/or weight based d osing when appropriate to reduce radiation dose to as low as reasonably achievable (ALARA). [facility]: Dose Right [facility]: CareDose [facility]: Dose Right [facility]: Teradose 4D [facility]: Bilna RADIATION DOSE: CT Rad equipment meets quality standard of care and radiation dose reduction techniq ues were employed. CTDIvol: 8.2 mGy. DLP: 356 mGy-cm. mGy. LIMITATIONS: No technical limitations. FINDINGS: LUNGS AND PLEURA: On axial image 22, a 2.5 x 1.7 cm cavitary lesion is present in the ante rior aspect right upper lobe with nodularity along its wall. This is worrisome for small cavitary ne oplasm. Remainder of the lungs exhibit centrilobular emphysema at the apices. Small bilateral pleural effusions are present. No pneumothorax. HILAR AND MEDIASTINAL STRUCTURES: No identified masses or abnormal nodes. No obvious thoracic aortic aneurysm. There is evidence of pulmonary hypertension with enlargement of the main, right, and left pulmonary arteries. HEART AND VASCULAR STRUCTURES: Calcified aortic valve with moderate coronary artery calcifications. No pericardial effusion. No gross cardiomegaly UPPER ABDOMEN: No significant findings. Limited exam. THYROID AND OTHER SOFT TISSUES: No masses. No adenopathy. BONES: No significant finding. HARDWARE: None in the chest. OTHER: No other significant findings. IMPRESSION: 2.5 x 1.7 cm cavitary nodule in the right upper lobe COPD. Pulmonary hypertension with prominent central pulmonary arteries TECHNICAL DOCUMENTATION: JOB ID: [id number] Quality ID # [id number]: Final reports with documentation of one or more dose reduction techniques (e.g., Au tomated exposure control, adjustment of the mA and/or kV according to patient size, use of iterative reconstruction technique) 2010 [employer]- All Rights Reserved Reading location - IP[facility]workstation name: [email or web address]
[2018-06-17] MEDS: POLYETHYLENE GLYCOL 3350 POWDER 17 GM/1 PACKET PO SCH (16:33)
[2018-06-17] MEDS: AZITHROMYCIN 500 MG in DEXTROSE 5%-WATER 250 ML IV SCH (17:02)
[2018-06-17] MEDS: DOCUSATE SODIUM 100 MG CAPSULE PO SCH (17:02)
--- NOTE | 2018-06-17 20:38 | PDOC CONSULTATION ---
Consultation-Blank Consultation: CARDIOLOGY CONSULTATION by Dr. Tricia Huitron on 06/17/2018. Patient seen on 06/17/2018 at 12 noon. 60 was spent in this patient with more than 50% of time spent in direct patient care next REASON FOR CONSULTATION: Atrial fibrillation. Requesting physician: Dr. Kyler Irvin. HISTORY OF PRESENT ILLNESS: Patient is a 82-year-old male with known history of hypertension, prior history of diastolic heart failure, chronic atrial fibrillation, not on anticoagulation due to severe nosebleeds in the past, admitted with cough and increasing shortness of breath with wheezing and orthopnea, of 2 to 3 days duration. The patient had no chest pain or discomfort. The patient does seem to have chronic atrial fibrillation which at present earlier although the heart rate was low at present the heart rate is in the 90s. The patient is on Cardizem. He has no PND. There is no leg edema at present. His ABG showed that his on 2 L nasal cannula is oxygenation and carbon dioxide acceptable on the blood gases. There is no TIA CVA symptoms. He has cough, but states that it is very difficult to bring out sputum. PAST MEDICAL HISTORY: As mentioned he has history of chronic atrial fibrillation, not on anticoagulation due to cardiac contraindication mentioned above. He has a history of COPD. He has a history of hypertension. History of chronic kidney disease stage III. He also has a history of arthritis. He also has a history of gastroesophageal reflux disease. There is no history of my ocardial infarction or anginal symptoms. There is no history of syncope. There is no history of diabetes mellitus or thyroid disease. There is no history of TIA or CVA. He has a history of benign prostatic hypertrophy with the symptoms controlled with Flomax. PAST SURGICAL HISTORY: There is no history of prior surgeries. ALLERGIES: The patient has no known allergies. FAMILY HISTORY: Is positive for hypertension. Negative for atrial fibrillation of coronary artery disease. Social HISTORY: The patient quit smoking long time ago. There is no street drug abuse. DISPOSITION: The patient is a full code. His son is his surrogate healthcare decision maker. MEDICATIONS: Reviewed as per APR. Note that the patient is on Cardizem CD 180 mg p.o. every 12 hours. In view of the intermittent bradycardia that this may have to be adjusted. Will observe. REVIEW OF SYSTEMS: CONSTITUTIONAL: Denies any fever chills or rigors. Complains of generalized fatigue and weakness. HEAD: Denies headaches or head injury. EYES: No history of abdomen diplopia. No history of neurosis fugax. EARS: NO HISTORY OF HEARING LOSS. NO TINNITUS. Nose: He has a prior history of nosebleeds. He states this was significant requiring transfusion, and it was difficult to stop the bleeding. Hence he is not on any anticoagulation. No history of hayfever. MOUTH: No osteoarthritis sensation. No ulcers in the mouth. THROAT: No history of odynophagia or dysphagia. SKIN: No history of pruritus. No yellowish discoloration of the skin. No history of psoriasis. NECK: No neck pain. No neck swelling. LUNGS: History of COPD. No history of sleep apnea. No history of pulmonary embolism. The patient states recent symptoms of acute exacerbation of COPD as mentioned in history of present illness. History of cough but not able to bring out any sputum. Although no history of asthma he has asthmatic bronchitis secondary to infection. HEART: History of hypertension present. History of chronic atrial fibrillation. No history of coronary artery disease. Prior history of diastolic heart failure. No history of syncope. No history of ventricular arrhythmias. No history of rheumatic fever. GI: History of GERD present. No history of GI bleed. No history of fatty food intolerance. No history of altered bowel movements. RENAL: History of chronic kidney disease. No symptoms of a UTI. History of enlarged prostate symptoms controlled with Flomax. No symptoms or UTI. No history of hematuria prior dysuria. ENDOCRINE: No history of diabetes mellitus or thyroid disease. No history of polydipsia polyuria. No history of heat or cold intolerance. MUSCULOSKELETAL: History of arthritis present but localized vascular disease. EARS: No history of TIA or CVA. No history of headaches migraines or seizures. PSYCHIATRIC. No history of anxiety depression. No suicidal ideation. HEMATOLOGICAL: No history of chronic anemia. No history of bleeding diathesis. No history of clotting disorders. VASCULAR: No history of calf or buttock claudication. No history of DVT. Physical EXAMINATION: The patient is well-built and well-nourished. In mild respiratory distress. But no accessory muscles of respiration in use. Selected Entries 06/17/18 06/17/18 12:17 12:23 Temperature 97.3 F Pulse Rate 92 Blood Pressure 168/55 H Blood Pressure 92 Mean O2 Sat by Pulse 100 Oximetry Oxygen Flow 3.5 Rate HEAD: Is atraumatic normocephalic. EYES: Pupils are equal round regular reactive light and accommodation. External ocular movements are normal. There is no conjunctival pallor or there is no scleral icterus. ENT is negative. NECK: Supple. There is no JVD. Carotids are equal there is no bruits. There is transmitted aortic stenosis murmur over both carotids. There is no carotid delay. There is no lymphadenopathy. There is no axillary muscles or respiration use there is no goiter. Trachea central. LUNGS: There is diminished air entry and prolonged expiration. Scattered rhonchi. There is no rales or wheezing. HEART: S1-S2 is heard there is no S3 gallop there is no S4 gallop. S1 is of variable intensity. Systolic murmur left sternal border in the apex. There is murmur of mild aortic stenosis present. A2 is preserved. There iscarotid delay. The aortic murmur is transmitted over both carotids. There is no rub ABDOMEN: Is soft. There is no paraspinal megaly. Bowel sounds well heard. There is no tender areas masses. EXTREMITIES: Femorals are slightly diminished. There is no femoral bruits. Leg pulses are well felt. There is no DVT or cellulitis. There is no pedal edema. There is no calf tenderness. There is no cyanosis or clubbing. LUBRICATION SUPERVISOR: The patient is conscious awake alert oriented x3 with no focal deficits. PSYCHIATRIC: The patient has been sad and intact his affect is normal. 06/15/18 06/16/18 06/16/18 19:50 03:25 03:25 WBC RBC Hgb Hct MCV MCH MCHC RDW Plt Count Carbonic Acid HCO3/H2CO3 Ratio ABG pH ABG pCO2 ABG pO2 ABG HCO3 ABG Total CO2 ABG O2 Saturation ABG Base Excess FiO2 Sodium Potassium Chloride Carbon Dioxide Anion Gap BUN Creatinine Est GFR (Non-Af Amer) Glucose POC Glucose Calcium Magnesium 2.8 H NT-Pro-B Natriuret Pep 7520 H 7380 H 06/17/18 06/17/18 06/17/18 04:15 04:15 12:22 WBC 20.6 H D RBC 3.48 L Hgb 11.3 L Hct 33.5 L MCV 96 MCH 32.4 MCHC 33.7 RDW 13.7 Plt Count 195 Carbonic Acid HCO3/H2CO3 Ratio ABG pH ABG pCO2 ABG pO2 ABG HCO3 ABG Total CO2 ABG O2 Saturation ABG Base Excess FiO2 Sodium 134.8 L Potassium 4.7 Chloride 104 Carbon Dioxide 19 L Anion Gap 12 BUN 51 H Creatinine 2.16 H Est GFR (Non-Af Amer) 29 L Glucose 149 H POC Glucose 167 H Calcium 9.7 Magnesium NT-Pro-B Natriuret Pep 06/17/18 14:20 WBC RBC Hgb Hct MCV MCH MCHC RDW Plt Count Carbonic Acid 1.16 HCO3/H2CO3 Ratio 18:1 ABG pH 7.37 ABG pCO2 38.4 ABG pO2 83.7 ABG HCO3 21.6 ABG Total CO2 22.8 L ABG O2 Saturation 96.0 ABG Base Excess -3.3 FiO2 2 L Sodium Potassium Chloride Carbon Dioxide Anion Gap BUN Creatinine Est GFR (Non-Af Amer) Glucose POC Glucose Calcium Magnesium NT-Pro-B Natriuret Pep EKG: MY INTERPRETATION: Atrial fibrillation with bradycardic ventricular response. Possible LVH by voltage. Chest X-Ray 06/15/18 19:50 IMPRESSION: Patchy opacity about the right upper lung zone. Consider atelectasis or pneumonia to include aspiration. Follow-up to clearing is suggested. Blunting of both costophrenic sulci, either indicating small pleural effusions or pleural thickening. copyright 2011 [employer]- All Rights Reserved Renal Ultrasound 06/17/18 00:00 IMPRESSION: 1. Bilateral cortical thinning. 2. Intrarenal calculi are on the left. 3. 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 Chest CT 06/17/18 06:00 IMPRESSION: 2.5 x 1.7 cm cavitary nodule in the right upper lobe COPD. Pulmonary hypertension with prominent central pulmonary arteries ECHOCARDIOGRAM: Shows normal left ventricle systolic function. There is mild to moderate aortic stenosis. There is moderate pulmonary hypertension related to the systolic pressure 50 to 55 mmHg. IMPRESSION/RECOMMENDATION: 1. CHRONIC atrial fibrillation with intermittent episodes of bradycardia. Continue Cardizem at present dose. Would observe closely for any further drop in the heart rate. 2. Chronic atrial fibrillation: The patient has contraindication for anticoagulation. 3. Acute infective bronchitis: Continue the patient's respiratory treatments including adding Mucomyst. And antibiotics. 4. Acute exacerbation of COPD.: Continue supplemental nasal oxygen. Continue with respiratory treatments. Continue antibiotics. 5. Hypertension: Blood pressure at present seems to be fairly well controlled. 6. 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 Suspect patient's chronic kidney disease status is CKD stage III: Seems to be stable. Avoid nephrotoxic drugs. 7. Mild to moderate aortic stenosis: I doubt that this is hemodynamically significant at present. 8. Moderate pulmonary hypertension: Anticipate the right middle systolic pressure will come down once the acute exacerbation of COPD resolves and the patient was back to his chronic COPD status. MEDICATIONS reviewed. At present would continue the patient at current dose of Cardizem, but observe for significant bradycardia, in which case it may have to be decreased or even stopped. Also the blood pressure is not very well con trolled. May need to add hydralazine. But will not do so as yet. This may be the hypertensive effect due to the patient's acute exacerbation of COPD due to his respiratory distress causing anxiety. Management plan discussed with Dr. Irvin. 60 minutes spent on this patient with more than 50% of time spent direct patient care. Cardiac status is stable. Will sign off. Call me if my services are needed.
[2018-06-17] MEDS: ATORVASTATIN CALCIUM 10 MG TABLET PO SCH (22:01)
[2018-06-17] MEDS: CEFTRIAXONE SODIUM 1,000 MG in DEXTROSE 5%-WATER 50 ML IV SCH (22:01)
[2018-06-18] MEDS: LEVALBUTEROL HCL NEB 1.25 MG/3 ML AMPUL NEB SCH ×7 (00:01→23:51)
[2018-06-18 04:53] LABS: HEMATOCRIT 33.6 % (37.9-51.0); HEMOGLOBIN 11.2 g/dL (13.5-17.0); MEAN CORPUSCULAR HEMOGLOBIN 32.2 pg (27.0-33.4); MEAN CORPUSCULAR HGB CONC 33.4 g/dL (32.0-36.0); MEAN CORPUSCULAR VOLUME 96 fl (80-97); PLATELET COUNT 196 10^3/uL (150-450); RED BLOOD COUNT 3.49 10^6/uL (4.35-5.55); RED CELL DISTRIBUTION WIDTH 13.8 % (11.5-14.0); WHITE BLOOD COUNT 19.3 10^3/uL (4.0-10.5)
[2018-06-18 05:08] LABS: ANION GAP 11 (5-19); BLOOD UREA NITROGEN 65 mg/dL (7-20); CALCIUM 9.6 mg/dL (8.4-10.2); CARBON DIOXIDE 21 mmol/L (22-30); CHLORIDE 103 mmol/L (98-107); GLUCOSE 140 mg/dL (75-110); POTASSIUM 4.8 mmol/L (3.6-5.0); SODIUM 135.1 mmol/L (137-145)
[2018-06-18] MEDS: BUSPIRONE HCL 10 MG TABLET PO SCH ×3 (05:13→21:58)
[2018-06-18 07:07] LABS: APPEARANCE,URINE CLEAR; BILIRUBIN,URINE NEGATIVE (NEGATIVE); COLOR,URINE YELLOW; GLUCOSE, URINE NEGATIVE (NEGATIVE); KETONES,URINE NEGATIVE (NEGATIVE); LEUKOCYTE ESTERASE,URINE NEGATIVE (NEGATIVE); NITRITE,URINE NEGATIVE (NEGATIVE); PROTEIN,URINE 100 mg/dL (NEGATIVE); URINE SPECIFIC GRAVITY 1.014; UROBILINOGEN,URINE NEGATIVE mg/dL (<2.0)
--- NOTE | 2018-06-18 08:09 | XCELERA REPORT ---
[address] [facility] [address] Lower Extremity Venous Evaluation Procedure: Color flow and duplex imaging of the veins of the left lower extremity as well as the right Common Femoral vein. Right Sided Venous Evaluation The right common femoral vein is fully compressible. Spontaneous and phasic flow is present in the right common femoral vein. Left Sided Venous Evaluation Normal vessel filling wall to wall, compression and augmentation as well as Colour flow down to the infrageniculate veins. Interpretation Summary No duplex evidence of DVT or obstruction in the left lower extremity nor in the right Common Femoral vein. Name: FAHEEM TOMAS Edelmira Age: 83 yrs Gender: Male : 1935 Patient Status: Inpatient Patient Location: [facility]^A Study Date: 06/17/2018 02:44 PM Reason For Study: left leg swelling Ordering Physician: Brandie AMANDA Performed By: Soledad Bhandari : Brandie AMANDA > Didier Donaldson
[2018-06-18] MEDS ORDERED: HYDRALAZINE HCL INJ/PF 20 MG/1 ML SDV IV PRN (08:28)
[2018-06-18 09:14] LABS: ARTERIAL BLOOD BASE EXCESS -1.4 mmol/L; ARTERIAL BLOOD H2CO3 1.21 mmol/L (1.05-1.35); ARTERIAL BLOOD HCO3 23.5 mmol/L (20-24); ARTERIAL BLOOD PCO2 40.2 mmHg (35-45); ARTERIAL BLOOD PH 7.39 (7.35-7.45); ARTERIAL BLOOD PO2 82.5 mmHg (80-100); ARTERIAL BLOOD TOTAL CO2 24.8 mmol/L (23-27)
[2018-06-18 09:18] LABS: ARTERIAL BLOOD FIO2 2L
[2018-06-18] MEDS: POLYETHYLENE GLYCOL 3350 POWDER 17 GM/1 PACKET PO SCH (09:26)
[2018-06-18] MEDS: FAMOTIDINE 20 MG TABLET PO SCH ×2 (09:27→21:58)
[2018-06-18] MEDS: DOCUSATE SODIUM 100 MG CAPSULE PO SCH ×2 (09:27→17:24)
[2018-06-18] MEDS: TAMSULOSIN HCL 0.4 MG CAP.SR.24H PO SCH (09:28)
[2018-06-18] MEDS: GUAIFENESIN 600 MG TABLET.SA PO SCH ×2 (09:28→21:58)
[2018-06-18] MEDS: VERAPAMIL HCL 180 MG TABLET.SA PO SCH ×2 (09:28→21:57)
[2018-06-18] MEDS: FLUTICASONE/VILANTEROL 200-25 MCG/DOSE IH SCH (09:28)
[2018-06-18] MEDS: PREDNISONE 10 MG TABLET PO SCH ×2 (09:28→17:24)
[2018-06-18] MEDS: ALLOPURINOL 100 MG TABLET PO SCH (09:28)
[2018-06-18] MEDS: ASPIRIN 81 MG TABLET, ENT COATED PO SCH (09:28)
[2018-06-18] MEDS: TIOTROPIUM BROMIDE DPI 5 CAP/KIT (18 MCG/CAP) IH SCH (09:29)
[2018-06-18] MEDS: ENOXAPARIN SODIUM INJ 30 MG/0.3 ML DISP.SYRIN SUBCUT SCH (09:29)
[2018-06-18] MEDS ORDERED: ALBUTEROL SULFATE 0.083% NEB 2.5 MG/3 ML AMPUL NEB PRN (10:15)
--- NOTE | 2018-06-18 10:37 | RADIOLOGY REPORT (SQ) ---
EXAM DESCRIPTION: CHEST SINGLE VIEW COMPLETED DATE/TIME: 06/18/2018 9:34 am REASON FOR STUDY: sob COMPARISON: 06/15/2018 EXAM PARAMETERS: NUMBER OF VIEWS: One view. TECHNIQUE: Single frontal radiographic view of the chest acquired. RADIATION DOSE: NA LIMITATIONS: None. FINDINGS: LUNGS AND PLEURA: There is an area of increased linear opacification in the right lung lat erally. This is more prominent than on the earlier study. Minimal pleural effusions are present. MEDIASTINUM AND HILAR STRUCTURES: No masses. Contour normal. HEART AND VASCULAR STRUCTURES: Heart size is borderline. No cathryn pulmonary edema. BONES: No acute findings. HARDWARE: None in the chest. OTHER: No other significant finding. IMPRESSION: Small pleural effusions. Likely linear atelectasis in the right lung. TECHNICAL DOCUMENTATION: JOB ID: [id number] [employer]- All Rights Reserved Reading location - IP/workstation name: [email or web address]
--- NOTE | 2018-06-18 11:14 | RADIOLOGY REPORT (SQ) ---
EXAM DESCRIPTION: NM LUNG VENT/PERF SCAN COMPLETED DATE/TIME: 06/18/2018 11:04 am REASON FOR STUDY: shortness of breath COMPARISON: None. RADIONUCLIDE AND DOSE: 5 millicuries TC-99m MAA Intravenous 30 millicuries TC-99m DTPA Inhaled aerosol TECHNIQUE: Eight views of the lungs acquired post ventilation of DTPA aerosol. Eight matching views of the lungs acquired following injection of MAA. LIMITATIONS: None. FINDINGS: VENTILATION: Ventilation is heterogeneous with patchy distribution of the DTPA aerosol. PERFUSION: Perfusion images with normal homogenous activity and no wedge-shaped or segmental defects. No ventilation-perfusion mismatches. OTHER: No other significant finding. IMPRESSION: Low probability of pulmonary emboli. TECHNICAL DOCUMENTATION: JOB ID: [id number] [employer]- All Rights Reserved Reading location - IP/workstation name: [email or web address]
--- NOTE | 2018-06-18 12:07 | PDOC PROGRESS REPORT ---
Subjective Progress Note for:: 06/18/18 Subjective:: Patient is complaining of cannot breathe Patient's denied any chest pain Patient is still having some cough Patient CT scan of the chest was done yesterday showed some cavitary lesion discussed with the pulmonary about the CT report and suggest the continues to current medical management All of the VQ scan was negative for any PE Ultrasound for the lower extremity negative for DVT Patient also unable to urinate the Gifford catheter is currently on the Flomax may be consider finasteride Patient's also has some constipation issues Reason For Visit: PNEUMONIA Physical Exam Vital Signs: Temp Pulse Resp BP Pulse Ox 97.2 F 44 L 20 186/61 H 98 06/18/18 07:37 06/18/18 08:51 06/18/18 08:51 06/18/18 07:37 06/18/18 08:51 Intake & Output 06/17/18 06/18/18 06/19/18 06:59 06:59 06:59 Intake Total 300 1697 Output Total 0 700 Balance 300 997 Weight 78.1 kg 77 kg General appearance: PRESENT: no acute distress, well-developed, well-nourished Head exam: PRESENT: atraumatic, normocephalic Eye exam: PRESENT: conjunctiva pink, EOMI, PERRLA. ABSENT: scleral icterus Ear exam: PRESENT: normal external ear exam Mouth exam: PRESENT: moist, tongue midline Neck exam: PRESENT: full ROM. ABSENT: carotid bruit, JVD, lymphadenopathy, thyromegaly Respiratory exam: PRESENT: decreased breath sounds, rhonchi Cardiovascular exam: PRESENT: RRR. ABSENT: diastolic murmur, rubs, systolic murmur Vascular exam: PRESENT: normal capillary refill GI/Abdominal exam: PRESENT: normal bowel sounds, soft. ABSENT: distended, guarding, mass, organolmegaly, rebound, tenderness Rectal exam: PRESENT: deferred Extremities exam: ABSENT: pedal edema Musculoskeletal exam: PRESENT: ambulatory Neurological exam: PRESENT: alert, awake, oriented to person, oriented to place, oriented to time, oriented to situation, CN II-XII grossly intact. ABSENT: motor sensory deficit Psychiatric exam: PRESENT: appropriate affect, normal mood. ABSENT: homicidal ideation, suicidal ideation Skin exam: PRESENT: dry, intact, warm. ABSENT: cyanosis, rash Results Laboratory Results: 06/18/18 03:45 04/25/19 03:45 06/17/18 06/17/18 06/18/18 13:07 14:20 03:45 WBC 19.3 H RBC 3.49 L Hgb 11.2 L Hct 33.6 L MCV 96 MCH 32.2 MCHC 33.4 RDW 13.8 Plt Count 196 Carbonic Acid 1.16 HCO3/H2CO3 Ratio 18:1 ABG pH 7.37 ABG pCO2 38.4 ABG pO2 83.7 ABG HCO3 21.6 ABG O2 Saturation 96.0 ABG Base Excess -3.3 FiO2 2 L Sodium Potassium Chloride Carbon Dioxide Anion Gap BUN Creatinine Est GFR ( Amer) Est GFR (Non-Af Amer) Glucose Lactic Acid 1.7 Calcium Urine Color Urine Appearance Urine pH Ur Specific [place] Urine Protein Urine Glucose (UA) Urine Ketones Urine Blood Urine Nitrite Ur Leukocyte Esterase Urine WBC (Auto) Urine RBC (Auto) 06/18/18 06/18/18 06/18/18 03:45 06:50 08:45 WBC RBC Hgb Hct MCV MCH MCHC RDW Plt Count Carbonic Acid 1.21 HCO3/H2CO3 Ratio 19:1 ABG pH 7.39 ABG pCO2 40.2 ABG pO2 82.5 ABG HCO3 23.5 ABG O2 Saturation 96.0 ABG Base Excess -1.4 FiO2 2L Sodium 135.1 L Potassium 4.8 Chloride 103 Carbon Dioxide 21 L Anion Gap 11 BUN 65 H Creatinine 2.37 H Est GFR ( Amer) 32 L Est GFR (Non-Af Amer) 26 L Glucose 140 H Lactic Acid Calcium 9.6 Urine Color YELLOW Urine Appearance CLEAR Urine pH 5.0 Ur Specific [place] 1.014 Urine Protein 100 H Urine Glucose (UA) NEGATIVE Urine Ketones NEGATIVE Urine Blood SMALL H Urine Nitrite NEGATIVE Ur Leukocyte Esterase NEGATIVE Urine WBC (Auto) 2 Urine RBC (Auto) 12 06/15/18 06/16/18 19:50 03:25 NT-Pro-B Natriuret Pep 7520 H 7380 H Impressions: Renal Ultrasound 06/17/18 00:00 IMPRESSION: 1. Bilateral cortical thinning. 2. Intrarenal calculi are on the left. 3. 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 Chest CT 06/17/18 06:00 IMPRESSION: 2.5 x 1.7 cm cavitary nodule in the right upper lobe COPD. Pulmonary hypertension with prominent central pulmonary arteries Chest X-Ray 06/18/18 00:00 IMPRESSION: Small pleural effusions. Likely linear atelectasis in the right lung. Lung Scan-VQ NM 06/18/18 00:00 IMPRESSION: Low probability of pulmonary emboli. Assessment & Plan - Diagnosis (1) Right upper lobe pneumonia Qualifiers: Pneumonia type: due to unspecified organism Qualified Code(s): J18.1 - Lobar pneumonia, unspecified organism Is this a current diagnosis for this admission?: Yes Plan: Continues to IV antibiotics discussed the CT report with the patient and the family and also with the pulmonary (2) COPD exacerbation Is this a current diagnosis for this admission?: Yes Plan: Continues to current medications (3) Respiratory distress Is this a current diagnosis for this admission?: Yes Plan: Continues to current medications and nebulizer and oxygen we will consult the pulmonary (4) Chronic kidney disease Qualifiers: Chronic kidney disease stage: stage 3 (moderate) Qualified Code(s): N18.3 - Chronic kidney disease, stage 3 (moderate) Is this a current diagnosis for this admission?: Yes Plan: Currently same follow-up with the nephrology (5) Diastolic congestive heart failure Qualifiers: Heart failure chronicity: chronic Qualified Code(s): I50.32 - Chronic diastolic (congestive) heart failure Is this a current diagnosis for this admission?: Yes Plan: Still continues to hold the Lasix (6) Hypertension Qualifiers: Hypertension type: essential hypertension Qualified Code(s): I10 - Essential (primary) hypertension Is this a current diagnosis for this admission?: Yes Plan: Currently all stable (7) Hyperlipidemia Qualifiers: Hyperlipidemia type: unspecified Qualified Code(s): E78.5 - Hyperlipidemia, unspecified Is this a current diagnosis for this admission?: Yes (8) Chronic atrial fibrillation Is this a current diagnosis for this admission?: Yes Plan: Continues the calcium channel bambi patients do not want and anticoagulations because of the bleeding issue in the past patient understand the risk and benefit of not taking the anticoagulations (9) Chronic constipation Is this a current diagnosis for this admission?: Yes Plan: Continue some MiraLAX and Colace (10) Benign prostatic hyperplasia Qualifiers: Lower urinary tract symptom presence: symptoms present Lower urinary tract symptom detail: urinary retention Qualified Code(s): N40.1 - Benign prostatic hyperplasia with lower urinary tract symptoms; R33.8 - Other retention of urine Is this a current diagnosis for this admission?: Yes Plan: Continues to Flomax 0.4 mg daily currently on a catheters may be considered finasteride on discharge - Time Time Spent with patient: 15-24 minutes Medications reviewed and adjusted accordingly: Yes Anticipated discharge: Home Within: Other - Plan Summary Plan Summary: Cussed with the son who has a power of trade mark attorney and [id number] with ex tensively in my office regarding the patient's current conditions also concern about the DNR status and discussed with the patient about DNR to patients do not want to be vegetative state
--- NOTE | 2018-06-18 15:02 | RADIOLOGY REPORT (SQ) ---
EXAM DESCRIPTION: CT ABD/PELVIS ORAL ONLY COMPLETED DATE/TIME: 06/18/2018 2:45 pm REASON FOR STUDY: constipation COMPARISON: CT chest 06/17/2018 TECHNIQUE: CT scan of the abdomen and pelvis performed without intravenous or oral contrast. Images reviewed with lung, soft tissue, and bone windows. Reconstructed coronal and sagittal MPR images revi ewed. All images stored on PACS. All CT scanners at this facility use dose modulation, iterative reconstruction, and/or weight based d osing when appropriate to reduce radiation dose to as low as reasonably achievable (ALARA). [facility]: Dose Right [facility]: CareDose [facility]: Dose Right [facility]: Teradose 4D [facility]: Smart [employer] RADIATION DOSE: CT Rad equipment meets quality standard of care and radiation dose reduction techniq ues were employed. CTDIvol: 5.6 mGy. DLP: 272 mGy-cm.mGy. LIMITATIONS: None. FINDINGS: LOWER CHEST: Small left, trace right pleural effusions stable from 06/17/2018. Moderate ca rdiomegaly NON-CONTRASTED LIVER, SPLEEN, ADRENALS: Evaluation limited by lack of IV contrast. No identified sign ificant masses. PANCREAS: No masses. No peripancreatic inflammatory changes. GALLBLADDER: No identified stones by CT criteria. No inflammatory changes to suggest cholecystitis. RIGHT KIDNEY AND URETER: No suspicious masses. Assessment limited by lack of IV contrast. Small kidn ey with cortical thinning upper half. No significant calcifications. No hydronephrosis or hydroure ter. LEFT KIDNEY AND URETER: No suspicious masses. Assessment limited by lack of IV contrast. Multiple l eft lower pole intrarenal nonobstructive stones less than 7 mm in size. No hydronephrosis or hydrou reter. AORTA AND RETROPERITONEUM: No aneurysm. No retroperitoneal masses or adenopathy. BOWEL AND PERITONEAL CAVITY: Patient did drink a small amount of oral contrast which is seen in nondi stended small bowel loops in the pelvis and along the ascending and proximal transverse colon. Gross ly nonobstructive bowel gas pattern. No free intraperitoneal air or fluid. Descending and sigmoid c olon diverticuli are present without CT signs of acute diverticulitis APPENDIX: Not identified PELVIS, BLADDER, AND ABDOMINAL WALL:Gifford catheter drains the bladder. Small amount of cul-de-sac fr ee fluid. No pelvic mass or adenopathy. BONES: No significant findings. OTHER: No other significant finding. IMPRESSION: No CT evidence of bowel obstruction. No gross constipation. Descending colon diverticu li without CT signs of acute diverticulitis. COMMENT: Quality ID # [id number]: Final reports with documentation of one or more dose reduction techniques (e.g., Automated exposure control, adjustment of the mA and/or kV according to patient size, use of iterative reconstruction technique) TECHNICAL DOCUMENTATION: JOB ID: [id number] [employer]- All Rights Reserved Reading location - IP/workstation name: [email or web address]
[2018-06-18] MEDS: AZITHROMYCIN 500 MG in DEXTROSE 5%-WATER 250 ML IV SCH (17:24)
[2018-06-18] MEDS: CEFTRIAXONE SODIUM 1,000 MG in DEXTROSE 5%-WATER 50 ML IV SCH (21:58)
[2018-06-18] MEDS: ATORVASTATIN CALCIUM 10 MG TABLET PO SCH (21:58)
[2018-06-19] MEDS: LEVALBUTEROL HCL NEB 1.25 MG/3 ML AMPUL NEB SCH ×5 (04:02→19:51)
[2018-06-19 04:31] LABS: HEMATOCRIT 34.2 % (37.9-51.0); HEMOGLOBIN 11.6 g/dL (13.5-17.0); MEAN CORPUSCULAR HEMOGLOBIN 32.6 pg (27.0-33.4); MEAN CORPUSCULAR HGB CONC 33.8 g/dL (32.0-36.0); MEAN CORPUSCULAR VOLUME 96 fl (80-97); PLATELET COUNT 188 10^3/uL (150-450); RED BLOOD COUNT 3.55 10^6/uL (4.35-5.55); RED CELL DISTRIBUTION WIDTH 13.9 % (11.5-14.0)
[2018-06-19 04:58] LABS: ABSOLUTE LYMPHOCYTES# (MANUAL) 0.9 10^3/uL (0.5-4.7); ABSOLUTE MONOCYTES # (MANUAL) 1.2 10^3/uL (0.1-1.4); BASOPHILS % (MANUAL) 0 % (0-2); EOSINOPHILS % (MANUAL) 0 % (0-6); LYMPHOCYTES % (MANUAL) 5 % (13-45); MONOCYTES % (MANUAL) 7 % (3-13); SEGMENTED NEUTROPHILS % (MAN) 88 % (42-78); TOTAL CELLS COUNTED 100
[2018-06-19 04:59] LABS: PLATELET COMMENT ADEQUATE; RBC MORPHOLOGY COMMENT NORMO-CYTIC/CHROMIC; TOXIC VACUOLATION PRESENT
[2018-06-19 05:00] LABS: ANION GAP 14 (5-19); BLOOD UREA NITROGEN 75 mg/dL (7-20); CALCIUM 9.7 mg/dL (8.4-10.2); CARBON DIOXIDE 21 mmol/L (22-30); CHLORIDE 101 mmol/L (98-107); GLUCOSE 116 mg/dL (75-110); POTASSIUM 5.5 mmol/L (3.6-5.0); SODIUM 135.6 mmol/L (137-145)
[2018-06-19] MEDS: BUSPIRONE HCL 10 MG TABLET PO SCH ×3 (05:26→21:55)
[2018-06-19] MEDS ORDERED: SODIUM POLYSTYRENE SULFONATE 15 GM/60 ML PO ONE (08:13)
[2018-06-19] MEDS: ASPIRIN 81 MG TABLET, ENT COATED PO SCH (09:55)
[2018-06-19] MEDS: GUAIFENESIN 600 MG TABLET.SA PO SCH ×2 (09:55→21:55)
[2018-06-19] MEDS: FAMOTIDINE 20 MG TABLET PO SCH ×2 (09:55→21:55)
[2018-06-19] MEDS: PREDNISONE 10 MG TABLET PO SCH ×2 (09:55→17:30)
[2018-06-19] MEDS: DOCUSATE SODIUM 100 MG CAPSULE PO SCH ×2 (09:55→17:30)
[2018-06-19] MEDS: TIOTROPIUM BROMIDE DPI 5 CAP/KIT (18 MCG/CAP) IH SCH (09:55)
[2018-06-19] MEDS: FINASTERIDE 5 MG TABLET PO SCH (09:55)
[2018-06-19] MEDS: TAMSULOSIN HCL 0.4 MG CAP.SR.24H PO SCH (09:55)
[2018-06-19] MEDS: FLUTICASONE/VILANTEROL 200-25 MCG/DOSE IH SCH (09:55)
[2018-06-19] MEDS: POLYETHYLENE GLYCOL 3350 POWDER 17 GM/1 PACKET PO SCH (09:55)
[2018-06-19] MEDS: ALLOPURINOL 100 MG TABLET PO SCH (09:55)
[2018-06-19] MEDS: 1/2 NORMAL SALINE 1,000 ML IV PRN (09:56)
[2018-06-19] MEDS ORDERED: PATIROMER 8.4 GM SUSP PACKET PO ONE ×2 (10:00→13:00)
--- NOTE | 2018-06-19 11:01 | PDOC PROGRESS REPORT ---
Subjective Progress Note for:: 06/19/18 Subjective:: Patient is still not feeling well Patient still complaining of shortness of the breath Patient VQ scan is negative Patient CT abdomen pelvis negative for any Patient's discussed with the pulmonary and suggest the patient and history of COPD currently on a maximum treatment Patient's heart rate is running low discussed with the cardiology he will adjust the medications currently hold the verapamil Patient's kidney function is also worsening Reason For Visit: PNEUMONIA Physical Exam Vital Signs: Temp Pulse Resp BP Pulse Ox 97.6 F 89 18 180/57 H 98 06/19/18 08:06 06/19/18 08:06 06/19/18 08:06 06/19/18 08:06 06/19/18 08:06 Intake & Output 06/18/18 06/19/18 06/20/18 06:59 06:59 06:59 Intake Total 1697 1202 Output Total 700 1275 Balance 997 -73 Weight 77 kg 76.2 kg General appearance: PRESENT: no acute distress, well-developed, well-nourished Head exam: PRESENT: atraumatic, normocephalic Eye exam: PRESENT: conjunctiva pink, EOMI, PERRLA. ABSENT: scleral icterus Ear exam: PRESENT: normal external ear exam Mouth exam: PRESENT: moist, tongue midline Neck exam: PRESENT: full ROM. ABSENT: carotid bruit, JVD, lymphadenopathy, thyromegaly Respiratory exam: PRESENT: decreased breath sounds Cardiovascular exam: PRESENT: irregular rhythm. ABSENT: diastolic murmur, rubs, systolic murmur Vascular exam: PRESENT: normal capillary refill GI/Abdominal exam: PRESENT: normal bowel sounds, soft. ABSENT: distended, guarding, mass, organolmegaly, rebound, tenderness Rectal exam: PRESENT: deferred Neurological exam: PRESENT: alert, awake, oriented to person, oriented to place, oriented to time, oriented to situation, CN II-XII grossly intact. ABSENT: motor sensory deficit Psychiatric exam: PRESENT: appropriate affect, normal mood. ABSENT: homicidal ideation, suicidal ideation Skin exam: PRESENT: dry, intact, warm. ABSENT: cyanosis, rash Results Laboratory Results: 06/19/18 03:30 06/19/18 03:46 06/19/18 06/19/18 03:30 03:46 WBC 17.0 H RBC 3.55 L Hgb 11.6 L Hct 34.2 L MCV 96 MCH 32.6 MCHC 33.8 RDW 13.9 Plt Count 188 Seg Neutrophils % Not Reportable Lymphocytes % Not Reportable Monocytes % Not Reportable Eosinophils % Not Reportable Basophils % Not Reportable Absolute Neutrophils Not Reportable Absolute Lymphocytes Not Reportable Absolute Monocytes Not Reportable Absolute Eosinophils Not Reportable Absolute Basophils Not Reportable Sodium 135.6 L Potassium 5.5 H Chloride 101 Carbon Dioxide 21 L Anion Gap 14 BUN 75 H Creatinine 2.14 H Est GFR ( Amer) 36 L Est GFR (Non-Af Amer) 30 L Glucose 116 H Calcium 9.7 06/15/18 06/16/18 19:50 03:25 NT-Pro-B Natriuret Pep 7520 H 7380 H Impressions: Renal Ultrasound 06/17/18 00:00 IMPRESSION: 1. Bilateral cortical thinning. 2. Intrarenal calculi are on the left. 3. 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 Chest CT 06/17/18 06:00 IMPRESSION: 2.5 x 1.7 cm cavitary nodule in the right upper lobe COPD. Pulmonary hypertension with prominent central pulmonary arteries Abdomen/Pelvis CT 06/18/18 00:00 IMPRESSION: No CT evidence of bowel obstruction. No gross constipation. Descending colon diverticuli without CT signs of acute diverticulitis. Chest X-Ray 06/18/18 00:00 IMPRESSION: Small pleural effusions. Likely linear atelectasis in the right lung. Lung Scan-VQ NM 06/18/18 00:00 IMPRESSION: Low probability of pulmonary emboli. Assessment & Plan - Diagnosis (1) Right upper lobe pneumonia Qualifiers: Pneumonia type: due to unspecified organism Qualified Code(s): J18.1 - Lobar pneumonia, unspecified organism Is this a current diagnosis for this admission?: Yes Plan: Continues to IV antibiotics discussed the CT report with the patient and the family and also with the pulmonary (2) COPD exacerbation Is this a current diagnosis for this admission?: Yes Plan: As per discussed with the pulmonary pretty much end-stage COPD continues to nebu lizer treatments (3) Respiratory distress Is this a current diagnosis for this admission?: Yes Plan: Continues to current medications and nebulizer and oxygen we will consult the pulmonary (4) Chronic kidney disease Qualifiers: Chronic kidney disease stage: stage 3 (moderate) Qualified Code(s): N18.3 - Chronic kidney disease, stage 3 (moderate) Is this a current diagnosis for this admission?: Yes Plan: Follow-up with nephrology Low potassium diet Kayexalate Given some IV fluid for the next 12 hours (5) Diastolic congestive heart failure Qualifiers: Heart failure chronicity: chronic Qualified Code(s): I50.32 - Chronic diastolic (congestive) heart failure Is this a current diagnosis for this admission?: Yes Plan: Still continues to hold the Lasix (6) Hypertension Qualifiers: Hypertension type: essential hypertension Qualified Code(s): I10 - Essential (primary) hypertension Is this a current diagnosis for this admission?: Yes Plan: Suggested the patient on hydralazine 50 mg p.o. every 8 (7) Hyperlipidemia Qualifiers: Hyperlipidemia type: unspecified Qualified Code(s): E78.5 - Hyperlipidemia, unspecified Is this a current diagnosis for this admission?: Yes (8) Chronic atrial fibrillation Is this a current diagnosis for this admission?: Yes Plan: Heart rate is running low Discussed with the cardiology he will evaluate the patient's today Currently hold the verapamil Patient is still confused but and anticoagulations (9) Chronic constipation Is this a current diagnosis for this admission?: Yes Plan: Currently all resolved (10) Benign prostatic hyperplasia Qualifiers: Lower urinary tract symptom presence: symptoms present Lower urinary tract symptom detail: urinary retention Qualified Code(s): N40.1 - Benign prostatic hyperplasia with lower urinary tract symptoms; R33.8 - Other retention of urine Is this a current diagnosis for this admission?: Yes Plan: Continues to Flomax and finasteride (11) Hematuria Qualifiers: Hematuria type: unspecified type Qualified Code(s): R31.9 - Hematuria, unspecified Is this a current diagnosis for this admission?: Yes Plan: Most likely related to the Gifford injury Continues to monitor IV fluid Hold anticoagulations (12) Cavitary lesion of lung Is this a current diagnosis for this admission?: Yes Plan: Continues antibiotics Follow with the pulmonary - Time Time Spent with patient: 25-34 minutes Medications reviewed and adjusted accordingly: Yes Within: Other - Plan Summary Plan Summary: Again discussed with the patient's and other coordinate nursing consultant's with the end-stage COPD multiple other comorbidity Discussed with the son and the [id number] regarding the patient's current conditions with the not a very good long-term prognosis The patient with some cavitary lesion discussed with the pulmonary to repeat the CT scan of the patient is doing okay in 3 months
--- NOTE | 2018-06-19 11:23 | PDOC PROGRESS REPORT ---
Subjective Progress Note for:: 06/19/18 Reason For Visit: Patient was seen yesterday and as well as this morning. He is complaining of shortness of breath that sometimes gets acutely worse. He states finally he started to expectorate some amount of phlegm which he was having difficulty earlier. He feels better with breathing treatments. He denies any history of chest pains, fever or chills. He has got a Gifford catheter with some hematuria post introduction of the catheter. However no abdominal pains. Labs and medications were reviewed with the patient and his daughter who was at the bedside. Pulmonology has been consulted who had seen him yesterday and this morning.Labs and medications were reviewed.After having a lengthy discussion with the patient I am not sure if the patient understands the possible underlying etiology of his pneumonia. Physical Exam Vital Signs: Temp Pulse Resp BP Pulse Ox 97.6 F 89 18 180/57 H 98 06/19/18 08:06 06/19/18 08:06 06/19/18 08:06 06/19/18 08:06 06/19/18 08:06 Intake & Output 06/18/18 06/19/18 06/20/18 06:59 06:59 06:59 Intake Total 1697 1202 Output Total 700 1275 Balance 997 -73 Weight 77 kg 76.2 kg General appearance: PRESENT: mild distress Respiratory exam: PRESENT: clear to auscultation melania, rhonchi - He has got coarse breath sounds throughout but with more intense rhonchi in the right upper lung zones. Cardiovascular exam: PRESENT: +S1, +S2 GI/Abdominal exam: PRESENT: normal bowel sounds, soft. ABSENT: organomegaly, tenderness Extremities exam: ABSENT: pedal edema Neurological exam: PRESENT: alert, awake, oriented to person, oriented to place Psychiatric exam: PRESENT: anxious Skin exam: ABSENT: erythema, mottled, rash Results Laboratory Results: 06/19/18 03:30 06/19/18 03:46 06/19/18 06/19/18 03:30 03:46 WBC 17.0 H RBC 3.55 L Hgb 11.6 L Hct 34.2 L MCV 96 MCH 32.6 MCHC 33.8 RDW 13.9 Plt Count 188 Seg Neutrophils % Not Reportable Lymphocytes % Not Reportable Monocytes % Not Reportable Eosinophils % Not Reportable Basophils % Not Reportable Absolute Neutrophils Not Reportable Absolute Lymphocytes Not Reportable Absolute Monocytes Not Reportable Absolute Eosinophils Not Reportable Absolute Basophils Not Reportable Sodium 135.6 L Potassium 5.5 H Chloride 101 Carbon Dioxide 21 L Anion Gap 14 BUN 75 H Creatinine 2.14 H Est GFR ( Amer) 36 L Est GFR (Non-Af Amer) 30 L Glucose 116 H Calcium 9.7 06/15/18 06/16/18 19:50 03:25 NT-Pro-B Natriuret Pep 7520 H 7380 H Impressions: Renal Ultrasound 06/17/18 00:00 IMPRESSION: 1. Bilateral cortical thinning. 2. Intrarenal calculi are on the left. 3. 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 Chest CT 06/17/18 06:00 IMPRESSION: 2.5 x 1.7 cm cavitary nodule in the right upper lobe COPD. Pulmonary hypertension with prominent central pulmonary arteries Abdomen/Pelvis CT 06/18/18 00:00 IMPRESSION: No CT evidence of bowel obstruction. No gross constipation. Descending colon diverticuli without CT signs of acute diverticulitis. Chest X-Ray 06/18/18 00:00 IMPRESSION: Small pleural effusions. Likely linear atelectasis in the right lung. Lung Scan-VQ NM 06/18/18 00:00 IMPRESSION: Low probability of pulmonary emboli. Assessment & Plan - Diagnosis (1) FIDE (acute kidney injury) Plan: Status quo. Nonoliguric. He has got some hematuria from most likely traumatic introduction of his Gifford catheter. I would withhold anticoagulants at this moment and monitor.Agree with gentle fluid resuscitation. We will try to get his baseline labs from Dr. Irvin's office. (2) COPD exacerbation Is this a current diagnosis for this admission?: Yes Plan: As per Dr. Irvin and Pulmonology. (3) Chronic atrial fibrillation Is this a current diagnosis for this admission?: Yes Plan: Currently rate controlled and stable. (4) Chronic kidney disease Qualifiers: Chronic kidney disease stage: stage 3 (moderate) Qualified Code(s): N18.3 - Chronic kidney disease, stage 3 (moderate) Is this a current diagnosis for this admission?: Yes Plan: Stage III with acute insult. Currently stable. Monitor. (5) Hypertension Qualifiers: Hypertension type: essential hypertension Qualified Code(s): I10 - Essential (primary) hypertension Is this a current diagnosis for this admission?: Yes Plan: Relatively stable with spikes in tune with his respiratory exacerbations. (6) Right upper lobe pneumonia Qualifiers: Pneumonia type: due to unspecified organism Qualified Code(s): J18.1 - Lobar pneumonia, unspecified organism Is this a current diagnosis for this admission?: Yes Plan: Cavitary/obstructive pneumonia. It looks like with the respiratory treatment and antibiotics he is finally starting to expectorate suggestive of an opening into the bronchus and this is going to be helping him to get relief and healing of his pneumonia. (7) Left leg swelling Plan: Negative for DVT. Monitor. (8) Hyperkalemia Plan: Being addressed with Siomara. Monitor.
[2018-06-19] MEDS ORDERED: ALBUTEROL SULFATE 0.083% NEB 2.5 MG/3 ML AMPUL NEB ONE (13:00)
[2018-06-19] MEDS: HYDRALAZINE HCL 25 MG TABLET PO SCH ×2 (16:16→21:55)
[2018-06-19] MEDS ORDERED: HYDRALAZINE HCL 25 MG TABLET PO ONE (16:30)
[2018-06-19] MEDS: ATORVASTATIN CALCIUM 10 MG TABLET PO SCH (21:55)
[2018-06-20] MEDS: LEVALBUTEROL HCL NEB 1.25 MG/3 ML AMPUL NEB SCH ×6 (00:06→20:12)
[2018-06-20] MEDS: ACETYLCYSTEINE 10% NEB 400 MG/4 ML VIAL NEB SCH ×3 (00:06→15:30)
[2018-06-20] MEDS: 1/2 NORMAL SALINE 1,000 ML IV PRN ×2 (02:30→20:24)
[2018-06-20] MEDS: HYDRALAZINE HCL 25 MG TABLET PO SCH ×3 (05:40→21:19)
[2018-06-20] MEDS: BUSPIRONE HCL 10 MG TABLET PO SCH ×3 (05:40→21:19)
[2018-06-20 08:21] LABS: ABSOLUTE LYMPHOCYTES (AUTO) 0.9 10^3/uL (0.5-4.7); ABSOLUTE MONOCYTES (AUTO) 1.3 10^3/uL (0.1-1.4); ABSOLUTE NEUT (AUTO) 10.3 10^3/uL (1.7-8.2); BASOPHILS % (AUTO) 0.1 % (0-2); HEMATOCRIT 36.1 % (37.9-51.0); HEMOGLOBIN 12.3 g/dL (13.5-17.0); LYMPHOCYTES % (AUTO) 7.1 % (13-45); MEAN CORPUSCULAR HEMOGLOBIN 32.7 pg (27.0-33.4); MEAN CORPUSCULAR HGB CONC 33.9 g/dL (32.0-36.0); MEAN CORPUSCULAR VOLUME 96 fl (80-97); MONOCYTES % (AUTO) 10.6 % (3-13); PLATELET COUNT 208 10^3/uL (150-450); RED BLOOD COUNT 3.75 10^6/uL (4.35-5.55); RED CELL DISTRIBUTION WIDTH 13.7 % (11.5-14.0); SEGMENTED NEUTROPHILS % (AUTO) 82.2 % (42-78); TOTAL CELLS COUNTED % (AUTO) 100 %; WHITE BLOOD COUNT 12.5 10^3/uL (4.0-10.5)
[2018-06-20 08:38] LABS: ANION GAP 8 (5-19); BLOOD UREA NITROGEN 64 mg/dL (7-20); CALCIUM 9.7 mg/dL (8.4-10.2); CARBON DIOXIDE 23 mmol/L (22-30); CHLORIDE 104 mmol/L (98-107); GLUCOSE 87 mg/dL (75-110); POTASSIUM 4.7 mmol/L (3.6-5.0); SODIUM 135.3 mmol/L (137-145)
[2018-06-20] MEDS: FAMOTIDINE 20 MG TABLET PO SCH ×2 (10:04→21:19)
[2018-06-20] MEDS: TAMSULOSIN HCL 0.4 MG CAP.SR.24H PO SCH (10:04)
[2018-06-20] MEDS: GUAIFENESIN 600 MG TABLET.SA PO SCH ×2 (10:04→21:20)
[2018-06-20] MEDS: FINASTERIDE 5 MG TABLET PO SCH (10:04)
[2018-06-20] MEDS: ALLOPURINOL 100 MG TABLET PO SCH (10:04)
[2018-06-20] MEDS: ASPIRIN 81 MG TABLET, ENT COATED PO SCH (10:04)
[2018-06-20] MEDS: PREDNISONE 10 MG TABLET PO SCH ×2 (10:05→17:14)
[2018-06-20] MEDS: FLUTICASONE/VILANTEROL 200-25 MCG/DOSE IH SCH (10:05)
[2018-06-20] MEDS: TIOTROPIUM BROMIDE DPI 5 CAP/KIT (18 MCG/CAP) IH SCH (10:05)
[2018-06-20] MEDS: LEVOFLOXACIN 500 MG/D5W RTU 500 MG/100 ML RTUPB IV SCH (10:05)
[2018-06-20] MEDS: DOCUSATE SODIUM 100 MG CAPSULE PO SCH ×2 (10:06→17:13)
[2018-06-20] MEDS: POLYETHYLENE GLYCOL 3350 POWDER 17 GM/1 PACKET PO SCH (10:06)
--- NOTE | 2018-06-20 15:52 | ADVANCED CARE ---
- Diagnosis (1) Cavitary lesion of lung Diagnosis Current: Yes (2) Right upper lobe pneumonia Diagnosis Current: Yes Attendance: RNGracy was in attendance Resuscitation Status: Do Not Resuscitate Discussion: Patient expresses desire to be a DNR, he does not want to be resuscitated, he does not want chest compression, he has a right upper lobe cavitary lesion very suspicious for malignant neoplasm, is followed by pulmonary, presently being treated for pneumonia
--- NOTE | 2018-06-20 15:55 | PDOC PROGRESS REPORT ---
Subjective Progress Note for:: 06/20/18 Subjective:: Patient was seen by the bedside, he has no new complaint today, medication was reviewed, he has right upper lobe cavitary lesion that is suspicious for malignant neoplasm, there is also associated pneumonia, on IV antibiotic. Patient expresses desire to be DNR status Reason For Visit: PNEUMONIA Physical Exam Vital Signs: Temp Pulse Resp BP Pulse Ox 97.8 F 65 16 153/45 H 96 06/20/18 11:39 06/20/18 14:00 06/20/18 12:22 06/20/18 11:39 06/20/18 12:22 Intake & Output 06/19/18 06/20/18 06/21/18 06:59 06:59 06:59 Intake Total 1202 1644 455 Output Total 1275 2475 200 Balance -73 -831 255 Weight 76.2 kg 76.2 kg General appearance: PRESENT: no acute distress Eye exam: PRESENT: PERRLA Respiratory exam: PRESENT: rhonchi Cardiovascular exam: PRESENT: +S1, +S2 GI/Abdominal exam: PRESENT: soft Neurological exam: PRESENT: alert Results Laboratory Results: 06/20/18 07:00 06/20/18 07:00 06/20/18 06/20/18 07:00 07:00 WBC 12.5 H RBC 3.75 L Hgb 12.3 L Hct 36.1 L MCV 96 MCH 32.7 MCHC 33.9 RDW 13.7 Plt Count 208 Seg Neutrophils % 82.2 H Lymphocytes % 7.1 L Monocytes % 10.6 Eosinophils % 0.0 Basophils % 0.1 Absolute Neutrophils 10.3 H Absolute Lymphocytes 0.9 Absolute Monocytes 1.3 Absolute Eosinophils 0.0 Absolute Basophils 0.0 Sodium 135.3 L Potassium 4.7 Chloride 104 Carbon Dioxide 23 Anion Gap 8 BUN 64 H Creatinine 1.82 H Est GFR ( Amer) 43 L Est GFR (Non-Af Amer) 36 L Glucose 87 Calcium 9.7 06/16/18 03:00 Blood Blood Culture - Final Staphylococcus Capitis Staphylococcus Hominis 06/18/18 06:50 Gifford Catheter Urine Culture - Final NO GROWTH 2 DAYS 06/15/18 06/16/18 19:50 03:25 NT-Pro-B Natriuret Pep 7520 H 7380 H Impressions: Renal Ultrasound 06/17/18 00:00 IMPRESSION: 1. Bilateral cortical thinning. 2. Intrarenal calculi are on the left. 3. 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 Chest CT 06/17/18 06:00 IMPRESSION: 2.5 x 1.7 cm cavitary nodule in the right upper lobe COPD. Pulmonary hypertension with prominent central pulmonary arteries Abdomen/Pelvis CT 06/18/18 00:00 IMPRESSION: No CT evidence of bowel obstruction. No gross constipation. Descending colon diverticuli without CT signs of acute diverticulitis. Chest X-Ray 06/18/18 00:00 IMPRESSION: Small pleural effusions. Likely linear atelectasis in the right lung. Lung Scan-VQ NM 06/18/18 00:00 IMPRESSION: Low probability of pulmonary emboli. Assessment & Plan - Diagnosis (1) Cavitary lesion of lung Is this a current diagnosis for this admission?: Yes (2) Right upper lobe pneumonia Qualifiers: Pneumonia type: due to unspecified organism Qualified Code(s): J18.1 - Lobar pneumonia, unspecified organism Is this a current diagnosis for this admission?: Yes Plan: Continue present line of management
--- NOTE | 2018-06-20 18:55 | Progress Note ---
Provider Note Provider Note: CARDIOLOGY PROGRESS NOTE by Dr Tricia Huitron on 06/20/2018. Patient seen in consultation on 06/17/2018, the patient's cardiac status was stable, has had signed off. I was asked to see the patient again for bradycardia. REASON FOR seeing the patient: Chronic atrial fibrillation with bradycardic ventricular response. REQUESTING PHYSICIAN: Dr. Irvin. SUBJECTIVE I briefly seen the patient yesterday since the nurse who told me that the patient was bradycardic. His heart rate was below 50s. Still in atrial fibrillation, with a good blood pressure reading. The patient was asymptomatic from his heart rate, although he had symptoms of cough due to his acute exacerbation of COPD/acute infective bronchitis. I had asked him to stop the Cardizem. Patient heart rate is now in the 70s. With a stable blood pressure. The patient denies any chest pain or discomfort. There is no dizziness, near syncope or syncope. He has no TIA or CVA symptoms. He has orthopnea but no PND. There is no anginal symptoms. The patient does not have any underlying coronary artery disease by history. He also has had severe nosebleeds with anticoagulation and hence is not on any chronic anticoagulation. The patient states his not coughing anymore. And his breathing has improved, although has not gone back to baseline PHYSICAL EXAMINATION: The patient is well-built and well-nourished. In no acute distress. He is well-groomed. Selected Entries 06/20/18 15:14 Temperature 98.2 F Temperature Oral Source Pulse Rate 75 Respiratory 20 Rate Blood Pressure 146/54 H Blood Pressure 84 Mean BP Location Left Arm BP Position Supine O2 Sat by Pulse 98 Oximetry Oxygen Flow 3.00 Rate Oxygen Delivery Nasal Cannula Method HEAD: Is atraumatic normocephalic. EYES: Pupils are equal round regular reactive light and accommodation. External ocular movements are normal. There is no conjunctival pallor or there is no scleral icterus. ENT is negative. NECK: Supple. There is no JVD. Carotids are equal there is no bruits. There is no lymphadenopathy. There is no axillary muscles or respiration use there is no goiter. Trachea central. LUNGS: There is diminished air entry and prolonged expiration. Scattered rhonchi. There is no rales or wheezing. HEART: S1-S2 is heard there is no S3 gallop there is no S4 gallop. S1 is of variable intensity. Systolic murmur left sternal border in the apex. There is no rub ABDOMEN: Is soft. There is no paraspinal megaly. Bowel sounds well heard. There is no tender areas masses. EXTREMITIES: Femorals are slightly diminished. There is no femoral bruits. Leg pulses are well felt. There is no DVT or cellulitis. There is no pedal edema. There is no calf tenderness. There is no cyanosis or clubbing. BITE BLOCK MAKER: The patient is conscious awake alert oriented x3 with no focal deficits. PSYCHIATRIC: The patient has been sad and intact his affect is normal. Labs- All tests 24 hr 06/20/18 06/20/18 07:00 07:00 WBC 12.5 H RBC 3.75 L Hgb 12.3 L Hct 36.1 L MCV 96 MCH 32.7 MCHC 33.9 RDW 13.7 Plt Count 208 Seg Neutrophils % 82.2 H Lymphocytes % 7.1 L Monocytes % 10.6 Eosinophils % 0.0 Basophils % 0.1 Absolute Neutrophils 10.3 H Absolute Lymphocytes 0.9 Absolute Monocytes 1.3 Absolute Eosinophils 0.0 Absolute Basophils 0.0 Sodium 135.3 L Potassium 4.7 Chloride 104 Carbon Dioxide 23 Anion Gap 8 BUN 64 H Creatinine 1.82 H Est GFR ( Amer) 43 L Est GFR (Non-Af Amer) 36 L Glucose 87 Calcium 9.7 IMPRESSION/RECOMMENDATION: 1. Bradycardia in a patient with chronic atrial fibrillation. Asymptomatic with no hemodynamic consequence. Recommend discontinue the patient's Cardizem. To control the patient's blood pressure start the patient on hydralazine which I have done yesterday at 25 mg p.o. every 8 hours and increase as tolerated. Later if the heart rate does come up then would give the patient a low-dose of Cardizem. This was discussed yesterday with Dr. Irvin, today with Dr. Bansal covering Dr. Irvin. 2. Chronic atrial fibrillation: The patient has contraindication for anticoagulation. 3. Acute infective bronchitis: Continue the patient's respiratory treatments including adding Mucomyst. And antibiotics. 4. Acute exacerbation of COPD.: Continue supplemental nasal oxygen. Continue with respiratory treatments. Continue antibiotics. 5. Hypertension: Blood pressure at present seems to be fairly well controlled. 6. Chronic kidney disease stage III: Seems to be stable. Avoid nephrotoxic drugs. Medications reviewed. Medications added. Medical decision making is of moderate complexity. 40 minutes presents patient with more than 50% of time spent in direct patient care. Management plan discussed with Dr. Bansal covering Dr. Irvin. Will follow.
[2018-06-20] MEDS: ATORVASTATIN CALCIUM 10 MG TABLET PO SCH (21:19)
[2018-06-21] MEDS: LEVALBUTEROL HCL NEB 1.25 MG/3 ML AMPUL NEB SCH ×7 (00:10→23:59)
[2018-06-21] MEDS: ACETYLCYSTEINE 10% NEB 400 MG/4 ML VIAL NEB SCH ×4 (00:10→23:58)
[2018-06-21] MEDS: BUSPIRONE HCL 10 MG TABLET PO SCH ×3 (05:33→21:16)
[2018-06-21] MEDS: HYDRALAZINE HCL 25 MG TABLET PO SCH ×3 (05:33→21:16)
[2018-06-21 06:20] LABS: ANION GAP 7 (5-19); BLOOD UREA NITROGEN 51 mg/dL (7-20); CALCIUM 9.4 mg/dL (8.4-10.2); CARBON DIOXIDE 25 mmol/L (22-30); CHLORIDE 105 mmol/L (98-107); GLUCOSE 91 mg/dL (75-110); POTASSIUM 4.5 mmol/L (3.6-5.0); SODIUM 136.6 mmol/L (137-145)
[2018-06-21] MEDS: TAMSULOSIN HCL 0.4 MG CAP.SR.24H PO SCH (09:44)
[2018-06-21] MEDS: DOCUSATE SODIUM 100 MG CAPSULE PO SCH ×2 (09:45→17:10)
[2018-06-21] MEDS: LEVOFLOXACIN 500 MG/D5W RTU 500 MG/100 ML RTUPB IV SCH (09:45)
[2018-06-21] MEDS: FAMOTIDINE 20 MG TABLET PO SCH ×2 (09:45→21:16)
[2018-06-21] MEDS: ASPIRIN 81 MG TABLET, ENT COATED PO SCH (09:45)
[2018-06-21] MEDS: PREDNISONE 10 MG TABLET PO SCH ×2 (09:45→17:10)
[2018-06-21] MEDS: POLYETHYLENE GLYCOL 3350 POWDER 17 GM/1 PACKET PO SCH (09:45)
[2018-06-21] MEDS: TIOTROPIUM BROMIDE DPI 5 CAP/KIT (18 MCG/CAP) IH SCH (09:45)
[2018-06-21] MEDS: ALLOPURINOL 100 MG TABLET PO SCH (09:45)
[2018-06-21] MEDS: GUAIFENESIN 600 MG TABLET.SA PO SCH ×2 (09:45→21:17)
[2018-06-21] MEDS: FINASTERIDE 5 MG TABLET PO SCH (09:45)
[2018-06-21] MEDS: FLUTICASONE/VILANTEROL 200-25 MCG/DOSE IH SCH (09:46)
--- NOTE | 2018-06-21 16:07 | PDOC PROGRESS REPORT ---
Subjective Progress Note for:: 06/21/18 Subjective:: Patient was seen by the bedside, he has no new complaint today, medication was reviewed, he has right upper lobe cavitary lesion that is suspicious for malignant neoplasm, there is also associated pneumonia, on IV antibiotic. Patient expresses desire to be DNR status Reason For Visit: PNEUMONIA Physical Exam Vital Signs: Temp Pulse Resp BP Pulse Ox 97.7 F 83 18 151/57 H 98 06/21/18 11:03 06/21/18 14:00 06/21/18 12:47 06/21/18 11:03 06/21/18 12:47 Intake & Output 06/20/18 06/21/18 06/22/18 06:59 06:59 06:59 Intake Total 1644 2027 1691 Output Total 2475 1100 300 Balance -974 925 9245 Weight 76.2 kg 76.6 kg General appearance: PRESENT: no acute distress Eye exam: PRESENT: PERRLA Respiratory exam: PRESENT: clear to auscultation melania Cardiovascular exam: PRESENT: +S1, +S2 Results Laboratory Results: 06/20/18 07:00 06/21/18 04:39 06/21/18 04:39 Sodium 136.6 L Potassium 4.5 Chloride 105 Carbon Dioxide 25 Anion Gap 7 BUN 51 H Creatinine 1.70 H Est GFR ( Amer) 47 L Est GFR (Non-Af Amer) 39 L Glucose 91 Calcium 9.4 06/19/18 13:25 Sputum Gram Stain - Final 06/19/18 13:25 Sputum Sputum Culture - Final Yeast, Not Janel Albicans Normal Marianne 06/16/18 03:25 Blood Blood Culture - Final NO GROWTH IN 5 DAYS 06/16/18 03:00 Blood Blood Culture - Final Staphylococcus Capitis Staphylococcus Hominis 06/15/18 06/16/18 19:50 03:25 NT-Pro-B Natriuret Pep 7520 H 7380 H Impressions: Renal Ultrasound 06/17/18 00:00 IMPRESSION: 1. Bilateral cortical thinning. 2. Intrarenal calculi are on the left. 3. 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 Chest CT 06/17/18 06:00 IMPRESSION: 2.5 x 1.7 cm cavitary nodule in the right upper lobe COPD. Pulmonary hypertension with prominent central pulmonary arteries Abdomen/Pelvis CT 06/18/18 00:00 IMPRESSION: No CT evidence of bowel obstruction. No gross constipation. Descending colon diverticuli without CT signs of acute diverticulitis. Chest X-Ray 06/18/18 00:00 IMPRESSION: Small pleural effusions. Likely linear atelectasis in the right lung. Lung Scan-VQ NM 06/18/18 00:00 IMPRESSION: Low probability of pulmonary emboli. Assessment & Plan - Diagnosis (1) Cavitary lesion of lung Is this a current diagnosis for this admission?: Yes (2) Right upper lobe pneumonia Qualifiers: Pneumonia type: due to unspecified organism Qualified Code(s): J18.1 - Lobar pneumonia, unspecified organism Is this a current diagnosis for this admission?: Yes
--- NOTE | 2018-06-21 16:12 | Progress Note ---
Provider Note Provider Note: CARDIOLOGY PROGRESS NOTE by Dr. Tricia Huitron on 06/21/2018. SUBJECTIVE: The patient has no further cough. He has orthopnea which is chronic. He has no PND. There is no chest pain or discomfort. His heart rate is much improved and rates 92 bpm. His blood pressure slightly on the higher side, but still acceptable. There is no TIA CVA symptoms. There is no leg edema. There is no wheezing. He has no chest pain or any angina symptoms. He is off the oxygen. NOTE THAT YESTERDAY AFTER PATIENT REQUESTED DR. STACY TO MAKE HIMSELF DNR. This was done. Physical EXAMINATION: The patient is well-built and well-nourished. In no acute distress. Selected Entries 06/21/18 11:03 Temperature 97.7 F Temperature Oral Source Pulse Rate 92 Respiratory 24 H Rate Blood Pressure 151/57 H [Left Upper Arm ] Blood Pressure 88 Mean [Left Upper Arm] Blood Pressure Supine Position [Left Upper Arm] O2 Sat by Pulse 98 Oximetry Oxygen Delivery Room Air Method ( includes room air) HEAD: Is atraumatic normocephalic. EYES: Pupils are equal round regular reactiv e light and accommodation. External ocular movements are normal. There is no conjunctival pallor or there is no scleral icterus. ENT is negative. NECK: Supple. There is no JVD. Carotids are equal there is no bruits. There is no lymphadenopathy. There is no axillary muscles or respiration use there is no goiter. Trachea central. LUNGS: There is diminished air entry and prolonged expiration. Scattered rhonchi. There is no rales or wheezing. HEART: S1-S2 is heard there is no S3 gallop there is no S4 gallop. S1 is of variable intensity. Systolic murmur left sternal border in the apex. There is no rub ABDOMEN: Is soft. There is no paraspinal megaly. Bowel sounds well heard. There is no tender areas masses. EXTREMITIES: Femorals are slightly diminished. There is no femoral bruits. Leg pulses are well felt. There is no DVT or cellulitis. There is no pedal edema. There is no calf tenderness. There is no cyanosis or clubbing. 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 PSYCHIATRIC: The patient has been sad and intact his affect is normal. 06/21/18 04:39 Sodium 136.6 L Potassium 4.5 Chloride 105 Carbon Dioxide 25 Anion Gap 7 BUN 51 H Creatinine 1.70 H Est GFR (Non-Af Amer) 39 L Glucose 91 Calcium 9.4 IMPRESSION/RECOMMENDATION: 1. Bradycardia in a patient with chronic atrial fibrillation. Heart rate now is in the 90s. . 2. Chronic atrial fibrillation: The patient has contraindication for anticoagulation. 3. Acute infective bronchitis: Continue the patient's respiratory treatments including adding Mucomyst. And antibiotics. 4. Acute exacerbation of COPD.: Continue supplemental nasal oxygen. Continue with respiratory treatments. Continue antibiotics. 5. Hypertension: Blood pressure at present seems to be fairly well controlled. 6. Chronic kidney disease stage III: Seems to be stable.in fact his GFR is improved to 39 from from 36 mL/min. Avoid nephrotoxic drugs. Medications reviewed. Medications added. Medical decision making is of moderate complexity. 40 minutes presents patient with more than 50% of time spent in direct patient care. Management plan discussed with Dr. Stacy covering Dr. Irvin. Will follow.
[2018-06-21] MEDS ORDERED: DILTIAZEM HCL 30 MG TABLET PO ONE (17:00)
[2018-06-21] MEDS: ATORVASTATIN CALCIUM 10 MG TABLET PO SCH (21:16)
[2018-06-21] MEDS: DILTIAZEM HCL 30 MG TABLET PO SCH (21:17)
[2018-06-22] MEDS: LEVALBUTEROL HCL NEB 1.25 MG/3 ML AMPUL NEB SCH ×5 (04:19→19:53)
[2018-06-22 04:54] LABS: ANION GAP 7 (5-19); BLOOD UREA NITROGEN 45 mg/dL (7-20); CALCIUM 9.6 mg/dL (8.4-10.2); CARBON DIOXIDE 23 mmol/L (22-30); CHLORIDE 107 mmol/L (98-107); GLUCOSE 111 mg/dL (75-110); POTASSIUM 4.7 mmol/L (3.6-5.0); SODIUM 136.9 mmol/L (137-145)
[2018-06-22] MEDS: HYDRALAZINE HCL 25 MG TABLET PO SCH ×3 (05:32→21:08)
[2018-06-22] MEDS: BUSPIRONE HCL 10 MG TABLET PO SCH ×3 (05:33→21:08)
[2018-06-22] MEDS: DILTIAZEM HCL 30 MG TABLET PO SCH (05:33)
[2018-06-22] MEDS: ACETYLCYSTEINE 10% NEB 400 MG/4 ML VIAL NEB SCH ×2 (08:54→16:18)
[2018-06-22] MEDS: ASPIRIN 81 MG TABLET, ENT COATED PO SCH (09:28)
[2018-06-22] MEDS: DOCUSATE SODIUM 100 MG CAPSULE PO SCH ×2 (09:28→17:38)
[2018-06-22] MEDS: ALLOPURINOL 100 MG TABLET PO SCH (09:28)
[2018-06-22] MEDS: PREDNISONE 10 MG TABLET PO SCH (09:28)
[2018-06-22] MEDS: POLYETHYLENE GLYCOL 3350 POWDER 17 GM/1 PACKET PO SCH (09:28)
[2018-06-22] MEDS: FAMOTIDINE 20 MG TABLET PO SCH (09:28)
[2018-06-22] MEDS: FINASTERIDE 5 MG TABLET PO SCH (09:28)
[2018-06-22] MEDS: GUAIFENESIN 600 MG TABLET.SA PO SCH ×2 (09:28→21:08)
[2018-06-22] MEDS: TAMSULOSIN HCL 0.4 MG CAP.SR.24H PO SCH (09:28)
[2018-06-22] MEDS: LEVOFLOXACIN 500 MG/D5W RTU 500 MG/100 ML RTUPB IV SCH (09:29)
[2018-06-22] MEDS: FLUTICASONE/VILANTEROL 200-25 MCG/DOSE IH SCH (09:30)
[2018-06-22] MEDS: TIOTROPIUM BROMIDE DPI 5 CAP/KIT (18 MCG/CAP) IH SCH (09:30)
--- NOTE | 2018-06-22 10:02 | PDOC PROGRESS REPORT ---
Subjective Progress Note for:: 06/22/18 Subjective:: Patient is feeling better Patient off the oxygen's Patient's heart rate is go up and start on a Cardizem 30 mg p.o. every 8 and plan to do the Cardizem 120 once a day Patient's other than that still have some constipation issues Patient still have a Gifford catheter Denied any other symptoms Reason For Visit: PNEUMONIA Physical Exam Vital Signs: Temp Pulse Resp BP Pulse Ox 97.7 F 60 20 150/49 H 97 06/22/18 08:01 06/22/18 08:01 06/22/18 08:01 06/22/18 08:01 06/22/18 08:01 Intake & Output 06/21/18 06/22/18 06/23/18 06:59 06:59 06:59 Intake Total 2026 2030 Output Total 1100 975 Balance 927 1056 Weight 76.6 kg 75.5 kg General appearance: PRESENT: no acute distress, well-developed, well-nourished Head exam: PRESENT: atraumatic, normocephalic Eye exam: PRESENT: conjunctiva pink, EOMI, PERRLA. ABSENT: scleral icterus Ear exam: PRESENT: normal external ear exam Mouth exam: PRESENT: moist, tongue midline Neck exam: PRESENT: full ROM. ABSENT: carotid bruit, JVD, lymphadenopathy, thyromegaly Respiratory exam: PRESENT: clear to auscultation melania Cardiovascular exam: PRESENT: RRR. ABSENT: diastolic murmur, rubs, systolic m urmur Vascular exam: PRESENT: normal capillary refill GI/Abdominal exam: PRESENT: normal bowel sounds, soft. ABSENT: distended, guarding, mass, organolmegaly, rebound, tenderness Rectal exam: PRESENT: deferred Musculoskeletal exam: PRESENT: ambulatory Neurological exam: PRESENT: alert, awake, oriented to person, oriented to place, oriented to time, oriented to situation, CN II-XII grossly intact. ABSENT: motor sensory deficit Psychiatric exam: PRESENT: appropriate affect, normal mood. ABSENT: homicidal ideation, suicidal ideation Skin exam: PRESENT: dry, intact, warm. ABSENT: cyanosis, rash Results Laboratory Results: 06/20/18 07:00 06/22/18 03:36 06/22/18 03:36 Sodium 136.9 L Potassium 4.7 Chloride 107 Carbon Dioxide 23 Anion Gap 7 BUN 45 H Creatinine 1.63 H Est GFR ( Amer) 49 L Est GFR (Non-Af Amer) 41 L Glucose 111 H Calcium 9.6 06/19/18 13:25 Sputum Gram Stain - Final 06/19/18 13:25 Sputum Sputum Culture - Final Yeast, Not Janel Albicans Normal Marianne 06/15/18 06/16/18 19:50 03:25 NT-Pro-B Natriuret Pep 7520 H 7380 H Impressions: Renal Ultrasound 06/17/18 00:00 IMPRESSION: 1. Bilateral cortical thinning. 2. Intrarenal calculi are on the left. 3. 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 Chest CT 06/17/18 06:00 IMPRESSION: 2.5 x 1.7 cm cavitary nodule in the right upper lobe COPD. Pulmonary hypertension with prominent central pulmonary arteries Abdomen/Pelvis CT 06/18/18 00:00 IMPRESSION: No CT evidence of bowel obstruction. No gross constipation. Descending colon diverticuli without CT signs of acute diverticulitis. Chest X-Ray 06/18/18 00:00 IMPRESSION: Small pleural effusions. Likely linear atelectasis in the right lung. Lung Scan-VQ NM 06/18/18 00:00 IMPRESSION: Low probability of pulmonary emboli. Assessment & Plan - Diagnosis (1) Right upper lobe pneumonia Qualifiers: Pneumonia type: due to unspecified organism Qualified Code(s): J18.1 - Lobar pneumonia, unspecified organism Is this a current diagnosis for this admission?: Yes Plan: Continues to Levaquin 500 mg IV daily (2) COPD exacerbation Is this a current diagnosis for this admission?: Yes Plan: Continues to current medications (3) Respiratory distress Is this a current diagnosis for this admission?: Yes Plan: Continues to current medications and nebulizer and oxygen we will consult the pulmonary (4) Chronic kidney disease Qualifiers: Chronic kidney disease stage: stage 3 (moderate) Qualified Code(s): N18.3 - Chronic kidney disease, stage 3 (moderate) Is this a current diagnosis for this admission?: Yes Plan: Follow-up with nephrology Low potassium diet Kayexalate Given some IV fluid for the next 12 hours (5) Diastolic congestive heart failure Qualifiers: Heart failure chronicity: chronic Qualified Code(s): I50.32 - Chronic diastolic (congestive) heart failure Is this a current diagnosis for this admission?: Yes Plan: Still continues to hold the Lasix (6) Hypertension Qualifiers: Hypertension type: essential hypertension Qualified Code(s): I10 - Essential (primary) hypertension Is this a current diagnosis for this admission?: Yes Plan: Suggested the patient on hydralazine 50 mg p.o. every 8 (7) Hyperlipidemia Qualifiers: Hyperlipidemia type: unspecified Qualified Code(s): E78.5 - Hyperlipidemia, unspecified Is this a current diagnosis for this admission?: Yes (8) Chronic atrial fibrillation Is this a current diagnosis for this admission?: Yes Plan: Patient is currently on a Cardizem 30 mg p.o. every 8 (9) Chronic constipation Is this a current diagnosis for this admission?: Yes Plan: Continues to Colace and MiraLAX (10) Benign prostatic hyperplasia Qualifiers: Lower urinary tract symptom presence: symptoms present Lower urinary tract symptom detail: urinary retention Qualified Code(s): N40.1 - Benign prostatic hyperplasia with lower urinary tract symptoms; R33.8 - Other retention of urine Is this a current diagnosis for this admission?: Yes Plan: Continues to Flomax and finasteride (11) Hematuria Qualifiers: Hematuria type: unspecified type Qualified Code(s): R31.9 - Hematuria, unspecified Is this a current diagnosis for this admission?: Yes Plan: Currently all resolved (12) Cavitary lesion of lung Is this a current diagnosis for this admission?: Yes Plan: Continues antibiotics Follow with the pulmonary - Time Time Spent with patient: 15-24 minutes Medications reviewed and adjusted accordingly: Yes Anticipated discharge: Home, Home with Homehealth Within: Other - Plan Summary Plan Summary: Continues to current medications
--- NOTE | 2018-06-22 13:05 | PDOC PROGRESS REPORT ---
Subjective Progress Note for:: 06/22/18 Subjective:: Patient continues to be short of breath. He tells me that his problem is his lungs and not his kidneys. He is not aware of any kidney problems in the past. We are not sure what his baseline kidney function is. He is making adequate amount of urine. His kidney function continues to improve. Reason For Visit: PNEUMONIA Physical Exam Vital Signs: Temp Pulse Resp BP Pulse Ox 97.7 F 90 20 167/77 H 98 06/22/18 11:22 06/22/18 12:48 06/22/18 12:48 06/22/18 11:22 06/22/18 12:48 Intake & Output 06/21/18 06/22/18 06/23/18 06:59 06:59 06:59 Intake Total 2026 2030 100 Output Total 1100 975 450 Balance 927 1056 -350 Weight 76.6 kg 75.5 kg Exam: General appearance: PRESENT: no acute distress, currently receiving breathing treatment cooperative, well-developed, well-nourished Head exam: PRESENT: atraumatic, normocephalic Eye exam: PRESENT: conjunctiva pale, PERRLA. ABSENT: scleral icterus Neck exam: ABSENT: JVD Respiratory exam: PRESENT: Slightly coarse breath sounds. ABSENT: crackles, rales, rhonchi, unlabored, wheezes Cardiovascular exam: PRESENT: Irregularly irregular rate rhythm -+S1, +S2. ABSENT: diastolic murmur, systolic murmur GI/Abdominal exam: PRESENT: normal bowel sounds, soft. ABSENT: guarding, mass, tenderness Extremities exam: ABSENT: No edema Neurological exam: PRESENT: alert, awake, oriented to person, place and time. Skin exam: PRESENT: dry, warm, Cardiovascular exam: PRESENT: +S1, +S2 GI/Abdominal exam: PRESENT: normal bowel sounds, soft. ABSENT: organomegaly, tenderness Results Laboratory Results: 06/20/18 07:00 06/22/18 03:36 06/22/18 03:36 Sodium 136.9 L Potassium 4.7 Chloride 107 Carbon Dioxide 23 Anion Gap 7 BUN 45 H Creatinine 1.63 H Est GFR ( Amer) 49 L Est GFR (Non-Af Amer) 41 L Glucose 111 H Calcium 9.6 06/19/18 13:25 Sputum Gram Stain - Final 06/19/18 13:25 Sputum Sputum Culture - Final Yeast, Not Janel Albicans Normal Marianne 06/15/18 06/16/18 19:50 03:25 NT-Pro-B Natriuret Pep 7520 H 7380 H Impressions: Renal Ultrasound 06/17/18 00:00 IMPRESSION: 1. Bilateral cortical thinning. 2. Intrarenal calculi are on the left. 3. 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 Chest CT 06/17/18 06:00 IMPRESSION: 2.5 x 1.7 cm cavitary nodule in the right upper lobe COPD. Pulmonary hypertension with prominent central pulmonary arteries Abdomen/Pelvis CT 06/18/18 00:00 IMPRESSION: No CT evidence of bowel obstruction. No gross constipation. Descending colon diverticuli without CT signs of acute diverticulitis. Chest X-Ray 06/18/18 00:00 IMPRESSION: Small pleural effusions. Likely linear atelectasis in the right lung. Lung Scan-VQ NM 06/18/18 00:00 IMPRESSION: Low probability of pulmonary emboli. Assessment & Plan - Diagnosis (1) FIDE (acute kidney injury) Is this a current diagnosis for this admission?: Yes Plan: Currently nonoliguric with continuously improving kidney function. Uncertain about his baseline kidney function or if he has underlying chronic kidney disease. Continue to monitor kidney function and electrolytes. No intervention necessary as far as the kidney function is concerned. Kidney ultrasound showed bilateral cortical thinning, bilateral cysts with intrarenal calculi on the left kidney. Also showed bladder diverticulum. The bilateral cortical thinning signifies possibly underlying chronic kidney disease. (2) Cavitary lesion of lung Is this a current diagnosis for this admission?: Yes Plan: Currently being treated for the pneumonia with IV antibiotics. Pulmonary was consulted for this. (3) Right upper lobe pneumonia Qualifiers: Pneumonia type: due to unspecified organism Qualified Code(s): J18.1 - Lob ar pneumonia, unspecified organism Is this a current diagnosis for this admission?: Yes (4) Chronic atrial fibrillation Is this a current diagnosis for this admission?: Yes Plan: Cardizem which is increased. (5) Hypertension Qualifiers: Hypertension type: essential hypertension Qualified Code(s): I10 - Essential (primary) hypertension Is this a current diagnosis for this admission?: Yes - Time Time with patient: 15-25 minutes
--- NOTE | 2018-06-22 20:19 | Progress Note ---
Provider Note Provider Note: CARDIOLOGY PROGRESS NOTE by Dr. Tricia Huitron on 06/22/2018. SUBJECTIVE: The patient states he does not feel well today, he is slightly more short of breath. He denies any cough. He does have orthopnea. There is no PND. There is no leg edema. There is no chest pain or discomfort. There is no TIA CVA symptoms. Monitor shows chronic atrial fibrillation with a ventricular response in the 90s. There is no ventricular arrhythmia seen on the monitor. PHYSICAL EXAMINATION: The patient is well-built and well-nourished. In spite of his complaints of shortness of breath he does not appear to be in any distress. He is well-groomed. Selected Entries 06/22/18 11:22 Temperature 97.7 F Temperature Oral Source Pulse Rate 80 Respiratory 22 H Rate Blood Pressure 107 Mean BP Location Right Arm BP Position Sitting O2 Sat by Pulse 96 Oximetry Oxygen Delivery Room Air Method HEAD: Is atraumatic normocephalic. EYES: Pupils are equal round regular reactive light and accommodation. External ocular movements are normal. There is no conjunctival pallor or there is no scleral icterus. ENT is negative. NECK: Supple. There is no JVD. Carotids are equal there is no bruits. There is no lymphadenopathy. There is no axillary muscles or respiration use there is no goiter. Trachea central. LUNGS: There is diminished air entry and prolonged expiration. Scattered rhonchi. There is no rales or wheezing. HEART: S1-S2 is heard there is no S3 gallop there is no S4 gallop. S1 is of variable intensity. Systolic murmur left sternal border in the apex. There is no rub ABDOMEN: Is soft. There is no paraspinal megaly. Bowel sounds well heard. There is no tender areas masses. EXTREMITIES: Femorals are slightly diminished. There is no femoral bruits. Leg pulses are well felt. There is no DVT or cellulitis. There is no pedal edema. There is no calf tenderness. There is no cyanosis or clubbing. 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 PSYCHIATRIC: The patient has been sad and intact his affect is normal. 06/22/18 03:36 Sodium 136.9 L Potassium 4.7 Chloride 107 Carbon Dioxide 23 Anion Gap 7 BUN 45 H Creatinine 1.63 H Est GFR (Non-Af Amer) 41 L Glucose 111 H Calcium 9.6 IMPRESSION/RECOMMENDATION: 1. Bradycardia in a patient with chronic atrial fibrillation. Heart rate now is in the 80s. We will increase the patient's Cardizem CD to 120 mg p.o. every 12 hours. If his blood pressure still elevated then we will increase the patient's hydralazine. . 2. Chronic atrial fibrillation: The patient has contraindication for anticoagulation. There is no evidence of TIA or CVA. 3. Acute infective bronchitis. ? RUL Pneumonia :Continue the patient's respiratory treatments including adding Mucomyst. And antibiotics. 4. Acute exacerbation of COPD.: Continue supplemental nasal oxygen. Continue with respiratory treatments. Continue antibiotics. 5. Hypertension: Blood pressure at present seems to be fairly well controlled. 6. Chronic kidney disease stage III: Seems to be stable.in fact his GFR is improved to 39 from from 36 mL/min. Avoid nephrotoxic drugs Medications reviewed. Medications increased. Management plan discussed with Dr. Irvin the attending physician on the case. Medical decision making is of moderate to high complexity in view of the need to adjust his medications. 40 minutes spent on this patient with more than 50% of time spent in direct patient care. Will follow
[2018-06-22] MEDS: DILTIAZEM HCL 120 MG CAP.SR.24H PO SCH (21:08)
[2018-06-22] MEDS: ATORVASTATIN CALCIUM 10 MG TABLET PO SCH (21:08)
[2018-06-23] MEDS: ACETYLCYSTEINE 10% NEB 400 MG/4 ML VIAL NEB SCH ×2 (00:26→07:26)
[2018-06-23] MEDS: LEVALBUTEROL HCL NEB 1.25 MG/3 ML AMPUL NEB SCH ×5 (00:27→20:14)
[2018-06-23 05:29] LABS: ABSOLUTE EOSINOPHILS # (AUTO) 0.1 10^3/uL (0.0-0.6); ABSOLUTE LYMPHOCYTES (AUTO) 1.1 10^3/uL (0.5-4.7); ABSOLUTE MONOCYTES (AUTO) 1.7 10^3/uL (0.1-1.4); ABSOLUTE NEUT (AUTO) 10.7 10^3/uL (1.7-8.2); BASOPHILS % (AUTO) 0.1 % (0-2); EOSINOPHILS % (AUTO) 0.4 % (0-6); HEMATOCRIT 39.5 % (37.9-51.0); HEMOGLOBIN 12.9 g/dL (13.5-17.0); LYMPHOCYTES % (AUTO) 8.2 % (13-45); MEAN CORPUSCULAR HEMOGLOBIN 31.5 pg (27.0-33.4); MEAN CORPUSCULAR HGB CONC 32.7 g/dL (32.0-36.0); MEAN CORPUSCULAR VOLUME 96 fl (80-97); MONOCYTES % (AUTO) 12.7 % (3-13); PLATELET COUNT 261 10^3/uL (150-450); RED CELL DISTRIBUTION WIDTH 13.9 % (11.5-14.0); SEGMENTED NEUTROPHILS % (AUTO) 78.6 % (42-78); TOTAL CELLS COUNTED % (AUTO) 100 %; WHITE BLOOD COUNT 13.6 10^3/uL (4.0-10.5)
[2018-06-23 05:50] LABS: ANION GAP 12 (5-19); BLOOD UREA NITROGEN 44 mg/dL (7-20); CALCIUM 10.2 mg/dL (8.4-10.2); CARBON DIOXIDE 21 mmol/L (22-30); CHLORIDE 108 mmol/L (98-107); GLUCOSE 82 mg/dL (75-110); POTASSIUM 4.6 mmol/L (3.6-5.0); SODIUM 140.5 mmol/L (137-145)
[2018-06-23] MEDS: HYDRALAZINE HCL 25 MG TABLET PO SCH ×3 (06:18→22:35)
[2018-06-23] MEDS: BUSPIRONE HCL 10 MG TABLET PO SCH ×3 (06:18→22:35)
--- NOTE | 2018-06-23 08:23 | PDOC PROGRESS REPORT ---
Subjective Progress Note for:: 06/23/18 Subjective:: Patient is feeling same Patient still feeling weak Patient still feeling urgency and a bowel movement Patient is denied any chest pain denied any shortness of breath No fever Reason For Visit: PNEUMONIA Physical Exam Vital Signs: Temp Pulse Resp BP Pulse Ox 98.4 F 81 18 150/74 H 94 06/23/18 01:16 06/23/18 07:26 06/23/18 07:26 06/23/18 01:16 06/23/18 07:26 Intake & Output 06/22/18 06/23/18 06/24/18 06:59 06:59 06:59 Intake Total 2031 1018 Output Total 975 1550 Balance 1056 -532 Weight 75.5 kg General appearance: PRESENT: no acute distress, well-developed, well-nourished Head exam: PRESENT: atraumatic, normocephalic Eye exam: PRESENT: conjunctiva pink, EOMI, PERRLA. ABSENT: scleral icterus Ear exam: PRESENT: normal external ear exam Mouth exam: PRESENT: moist, tongue midline Neck exam: PRESENT: full ROM. ABSENT: carotid bruit, JVD, lymphadenopathy, thyromegaly Respiratory exam: PRESENT: clear to auscultation melania Cardiovascular exam: PRESENT: RRR. ABSENT: diastolic murmur, rubs, systolic murmur Vascular exam: PRESENT: normal capillary refill GI/Abdominal exam: PRESENT: normal bowel sounds, soft. ABSENT: distended, guarding, mass, organolmegaly, rebound, tenderness Rectal exam: PRESENT: deferred Extremities exam: ABSENT: pedal edema Musculoskeletal exam: PRESENT: ambulatory Neurological exam: PRESENT: alert, awake, oriented to person, oriented to place, oriented to time, oriented to situation, CN II-XII grossly intact. ABSENT: motor sensory deficit Psychiatric exam: PRESENT: appropriate affect, normal mood. ABSENT: homicidal ideation, suicidal ideation Skin exam: PRESENT: dry, intact, warm. ABSENT: cyanosis, rash Results Laboratory Results: 06/23/18 04:20 06/23/18 04:20 06/23/18 06/23/18 04:20 04:20 WBC 13.6 H RBC 4.10 L Hgb 12.9 L Hct 39.5 MCV 96 MCH 31.5 MCHC 32.7 RDW 13.9 Plt Count 261 Seg Neutrophils % 78.6 H Lymphocytes % 8.2 L Monocytes % 12.7 Eosinophils % 0.4 Basophils % 0.1 Absolute Neutrophils 10.7 H Absolute Lymphocytes 1.1 Absolute Monocytes 1.7 H Absolute Eosinophils 0.1 Absolute Basophils 0.0 Sodium 140.5 Potassium 4.6 Chloride 108 H Carbon Dioxide 21 L Anion Gap 12 BUN 44 H Creatinine 1.64 H Est GFR ( Amer) 49 L Est GFR (Non-Af Amer) 40 L Glucose 82 Calcium 10.2 06/15/18 06/16/18 19:50 03:25 NT-Pro-B Natriuret Pep 7520 H 7380 H Impressions: Renal Ultrasound 06/17/18 00:00 IMPRESSION: 1. Bilateral cortical thinning. 2. Intrarenal calculi are on the left. 3. 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 Chest CT 06/17/18 06:00 IMPRESSION: 2.5 x 1.7 cm cavitary nodule in the right upper lobe COPD. Pulmonary hypertension with prominent central pulmonary arteries Abdomen/Pelvis CT 06/18/18 00:00 IMPRESSION: No CT evidence of bowel obstruction. No gross constipation. Descending colon diverticuli without CT signs of acute diverticulitis. Chest X-Ray 06/18/18 00:00 IMPRESSION: Small pleural effusions. Likely linear atelectasis in the right lung. Lung Scan-VQ NM 06/18/18 00:00 IMPRESSION: Low probability of pulmonary emboli. Assessment & Plan - Diagnosis (1) Right upper lobe pneumonia Qualifiers: Pneumonia type: due to unspecified organism Qualified Code(s): J18.1 - Lobar pneumonia, unspecified organism Is this a current diagnosis for this admission?: Yes Plan: Continues to Levaquin 500 mg IV daily (2) COPD exacerbation Is this a current diagnosis for this admission?: Yes Plan: Continues to current medications (3) Respiratory distress Is this a current diagnosis for this admission?: Yes Plan: Continues to current medications and nebulizer and oxygen we will consult the pulmonary (4) Chronic kidney disease Qualifiers: Chronic kidney disease stage: stage 3 (moderate) Qualified Code(s): N18.3 - Chronic kidney disease, stage 3 (moderate) Is this a current diagnosis for this admission?: Yes Plan: Follow-up with nephrology Low potassium diet Kayexalate Given some IV fluid for the next 12 hours (5) Diastolic congestive heart failure Qualifiers: Heart failure chronicity: chronic Qualified Code(s): I50.32 - Chronic mcgee tolic (congestive) heart failure Is this a current diagnosis for this admission?: Yes Plan: Still continues to hold the Lasix (6) Hypertension Qualifiers: Hypertension type: essential hypertension Qualified Code(s): I10 - Essential (primary) hypertension Is this a current diagnosis for this admission?: Yes Plan: Suggested the patient on hydralazine 50 mg p.o. every 8 (7) Hyperlipidemia Qualifiers: Hyperlipidemia type: unspecified Qualified Code(s): E78.5 - Hyperlipidemia, unspecified Is this a current diagnosis for this admission?: Yes (8) Chronic atrial fibrillation Is this a current diagnosis for this admission?: Yes Plan: Continues to Cardizem (9) Chronic constipation Is this a current diagnosis for this admission?: Yes Plan: Continues to Colace and MiraLAX (10) Benign prostatic hyperplasia Qualifiers: Lower urinary tract symptom presence: symptoms present Lower urinary tract symptom detail: urinary retention Qualified Code(s): N40.1 - Benign prostatic hyperplasia with lower urinary tract symptoms; R33.8 - Other retention of urine Is this a current diagnosis for this admission?: Yes Plan: Continues to Flomax and finasteride (11) Hematuria Qualifiers: Hematuria type: unspecified type Qualified Code(s): R31.9 - Hematuria, unspecified Is this a current diagnosis for this admission?: Yes Plan: Currently all resolved (12) Cavitary lesion of lung Is this a current diagnosis for this admission?: Yes Plan: Continues antibiotics Follow with the pulmonary - Time Time Spent with patient: 15-24 minutes Medications reviewed and adjusted accordingly: Yes Anticipated discharge: Acute Rehab Within: Other - Plan Summary Plan Summary: Discussed with the patient's that the patient is pretty much significant end- stage COPD chronic kidney disease multiple other comorbidity patients probably get a benefit to go to the rehab patients will think about it we will discuss with the patient's family
[2018-06-23] MEDS ORDERED: PREDNISONE 10 MG TABLET PO SCH (10:00)
[2018-06-23] MEDS ORDERED: DILTIAZEM HCL 120 MG CAP.SR.24H PO SCH (10:00)
--- NOTE | 2018-06-23 10:29 | PDOC PROGRESS REPORT ---
Subjective Progress Note for:: 06/23/18 Subjective:: Patient states that he is a still not feeling good. He realized that his main problem is his lungs and he does not feel like it can get any better from here. He is currently not even on oxygen at rest but requires oxygen and exertion. He is telling me that Dr. Irvin wants him to go to rehab but he does not want to. He said he just wants to hit the "happy [place]", stating that may be just wants to . I tried to tell him that may be once the pneumonia is completely treated his get a feel better with his lungs. I also asked him if he would need some mood stabilizer to help him cope up with his situation. He declines any on the anxiety or antidepressants. Aside from this he does not have any other complaints. Reason For Visit: PNEUMONIA Physical Exam Vital Signs: Temp Pulse Resp BP Pulse Ox 98.4 F 81 18 150/74 H 94 06/23/18 01:16 06/23/18 07:26 06/23/18 07:26 06/23/18 01:16 06/23/18 07:26 Intake & Output 06/22/18 06/23/18 06/24/18 06:59 06:59 06:59 Intake Total 2031 1018 Output Total 975 1550 Balance 1056 -532 Weight 75.5 kg 76.6 kg Exam: General appearance: PRESENT: no acute distress, cooperative, well-developed, well-nourished Head exam: PRESENT: atraumatic, normocephalic Eye exam: PRESENT: conjunctiva slightly pale, PERRLA. ABSENT: scleral icterus Neck exam: ABSENT: JVD Respiratory exam: PRESENT: Diminished breath sounds. ABSENT: crackles, rales, rhonchi, unlabored, wheezes Cardiovascular exam: PRESENT: Irregular rate rhythm -+S1, +S2. Grade 2/6 systolic murmur ABSENT: diastolic murmur GI/Abdominal exam: PRESENT: normal bowel sounds, soft. ABSENT: guarding, mass, tenderness Extremities exam: ABSENT: No edema Neurological exam: PRESENT: alert, awake, oriented to person, place and time. Skin exam: PRESENT: dry, warm, Cardiovascular exam: PRESENT: +S1, +S2 GI/Abdominal exam: PRESENT: normal bowel sounds, soft. ABSENT: organomegaly, tenderness Results Laboratory Results: 06/23/18 04:20 06/23/18 04:20 06/23/18 06/23/18 04:20 04:20 WBC 13.6 H RBC 4.10 L Hgb 12.9 L Hct 39.5 MCV 96 MCH 31.5 MCHC 32.7 RDW 13.9 Plt Count 261 Seg Neutrophils % 78.6 H Lymphocytes % 8.2 L Monocytes % 12.7 Eosinophils % 0.4 Basophils % 0.1 Absolute Neutrophils 10.7 H Absolute Lymphocytes 1.1 Absolute Monocytes 1.7 H Absolute Eosinophils 0.1 Absolute Basophils 0.0 Sodium 140.5 Potassium 4.6 Chloride 108 H Carbon Dioxide 21 L Anion Gap 12 BUN 44 H Creatinine 1.64 H Est GFR ( Amer) 49 L Est GFR (Non-Af Amer) 40 L Glucose 82 Calcium 10.2 06/15/18 06/16/18 19:50 03:25 NT-Pro-B Natriuret Pep 7520 H 7380 H Impressions: Renal Ultrasound 06/17/18 00:00 IMPRESSION: 1. Bilateral cortical thinning. 2. Intrarenal calculi are on the left. 3. 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 Chest CT 06/17/18 06:00 IMPRESSION: 2.5 x 1.7 cm cavitary nodule in the right upper lobe COPD. Pulmonary hypertension with prominent central pulmonary arteries Abdomen/Pelvis CT 06/18/18 00:00 IMPRESSION: No CT evidence of bowel obstruction. No gross constipation. Descending colon diverticuli without CT signs of acute diverticulitis. Chest X-Ray 06/18/18 00:00 IMPRESSION: Small pleural effusions. Likely linear atelectasis in the right lung. Lung Scan-VQ NM 06/18/18 00:00 IMPRESSION: Low probability of pulmonary emboli. Assessment & Plan - Diagnosis (1) FIDE (acute kidney injury) Is this a current diagnosis for this admission?: Yes Plan: Currently nonoliguric with continuously improving kidney function. Kidney function currently stable. Uncertain about his baseline kidney function or if he has underlying chronic kidney disease. Continue to monitor kidney function and electrolytes. No intervention necessary as far as the kidney function is concerned. Kidney ultrasound showed bilateral cortical thinning, bilateral cysts with intrarenal calculi on the left kidney. Also showed bladder diverti culum. The bilateral cortical thinning signifies possibly underlying chronic kidney disease. (2) Cavitary lesion of lung Is this a current diagnosis for this admission?: Yes Plan: Currently being treated for the pneumonia with IV antibiotics. Pulmonary was consulted for this. (3) Right upper lobe pneumonia Qualifiers: Pneumonia type: due to unspecified organism Qualified Code(s): J18.1 - Lobar pneumonia, unspecified organism Is this a current diagnosis for this admission?: Yes Plan: On IV antibiotics. (4) Chronic atrial fibrillation Is this a current diagnosis for this admission?: Yes Plan: Cardizem which is increased. (5) Hypertension Qualifiers: Hypertension type: essential hypertension Qualified Code(s): I10 - Essential (primary) hypertension Is this a current diagnosis for this admission?: Yes (6) Depression Is this a current diagnosis for this admission?: Yes Plan: Defer to primary service. - Time Time with patient: 15-25 minutes
[2018-06-23] MEDS: FLUTICASONE/VILANTEROL 200-25 MCG/DOSE IH SCH (10:59)
[2018-06-23] MEDS: FINASTERIDE 5 MG TABLET PO SCH (10:59)
[2018-06-23] MEDS: LEVOFLOXACIN 500 MG/D5W RTU 500 MG/100 ML RTUPB IV SCH (10:59)
[2018-06-23] MEDS: TAMSULOSIN HCL 0.4 MG CAP.SR.24H PO SCH (11:00)
[2018-06-23] MEDS: ALLOPURINOL 100 MG TABLET PO SCH (11:00)
[2018-06-23] MEDS: DILTIAZEM HCL 120 MG CAP.SR.24H PO SCH ×2 (11:00→22:36)
[2018-06-23] MEDS: FAMOTIDINE 20 MG TABLET PO SCH (11:00)
[2018-06-23] MEDS: POLYETHYLENE GLYCOL 3350 POWDER 17 GM/1 PACKET PO SCH ×2 (11:00→11:03)
[2018-06-23] MEDS: GUAIFENESIN 600 MG TABLET.SA PO SCH ×2 (11:00→22:35)
[2018-06-23] MEDS: ASPIRIN 81 MG TABLET, ENT COATED PO SCH (11:00)
[2018-06-23] MEDS: DOCUSATE SODIUM 100 MG CAPSULE PO SCH ×2 (11:00→17:22)
[2018-06-23] MEDS ORDERED: SIMETHICONE 80 MG TAB.CHEW PO PRN ×2 (12:17→12:26)
[2018-06-23] MEDS: TIOTROPIUM BROMIDE DPI 5 CAP/KIT (18 MCG/CAP) IH SCH (12:20)
[2018-06-23] MEDS ORDERED: LEVALBUTEROL HCL NEB 1.25 MG/3 ML AMPUL NEB PRN (14:30)
--- NOTE | 2018-06-23 20:22 | Progress Note ---
Provider Note Provider Note: CARDIOLOGY PROGRESS NOTE by Dr. Tricia Huitron on 06/23/2018. SUBJECTIVE: The patient's claims is shortness of breath is better and he has no cough. He does have chronic orthopnea. There is no PND. There is no chest pain or discomfort. There is no leg edema. The patient remains atrial fibrillation with controlled ventricular response. His blood pressure is much improved there is no TIA CVA symptoms. But this is a patient states he does not feel good and he feels very weak. He realizes that his problem is his lungs, and is very despondent although not depressed, about his lung status. I tried to chair up the patient. PHYSICAL EXAMINATION: The patient is well-built and well-nourished. At present in no acute distress. Selected Entries 06/23/18 15:17 Temperature 98.5 F Temperature Oral Source Pulse Rate 79 Respiratory 18 Rate Blood Pressure 145/53 H Blood Pressure 83 Mean BP Location Right Arm BP Position Supine O2 Sat by Pulse 96 Oximetry Oxygen Delivery Room Air Method HEAD: Is atraumatic normocephalic. EYES: Pupils are equal round regular reac tive light and accommodation. External ocular movements are normal. There is no conjunctival pallor or there is no scleral icterus. ENT is negative. NECK: Supple. There is no JVD. Carotids are equal there is no bruits. There is no lymphadenopathy. There is no axillary muscles or respiration use there is no goiter. Trachea central. LUNGS: There is diminished air entry and prolonged expiration. Scattered rhonchi. There is no rales or wheezing. HEART: S1-S2 is heard there is no S3 gallop there is no S4 gallop. S1 is of variable intensity. Systolic murmur left sternal border in the apex. There is no rub ABDOMEN: Is soft. There is no paraspinal megaly. Bowel sounds well heard. There is no tender areas masses. EXTREMITIES: Femorals are slightly diminished. There is no femoral bruits. Leg pulses are well felt. There is no DVT or cellulitis. There is no pedal edema. There is no calf tenderness. There is no cyanosis or clubbing. WATER SERVER: The patient is conscious awake alert oriented x3 with no focal deficits. PSYCHIATRIC: The patient has been sad and intact his affect is normal 06/23/18 06/23/18 04:20 04:20 WBC 13.6 H RBC 4.10 L Hgb 12.9 L Hct 39.5 MCV 96 MCH 31.5 MCHC 32.7 RDW 13.9 Plt Count 261 Seg Neutrophils % 78.6 H Lymphocytes % 8.2 L Sodium 140.5 Potassium 4.6 Chloride 108 H Carbon Dioxide 21 L Anion Gap 12 BUN 44 H Creatinine 1.64 H Est GFR (Non-Af Amer) 40 L Glucose 82 IMPRESSION/RECOMMENDATION: 1. Bradycardia in a patient with chronic atrial fibrillation. Heart rate now is in the 80s. We will increase the patient's Cardizem CD to 120 mg p.o. every 12 hours. If his blood pressure still elevated then we will increase the patient's hydralazine. . 2. Chronic atrial fibrillation: The patient has contraindication for anticoagulation. There is no evidence of TIA or CVA. 3. Acute infective bronchitis. ? RUL Pneumonia :Continue the patient's respira tory treatments including adding Mucomyst. And antibiotics. 4. Acute exacerbation of COPD.: Continue supplemental nasal oxygen. Continue with respiratory treatments. Continue antibiotics. 5. Hypertension: Blood pressure at present seems to be fairly well controlled. 6. Chronic kidney disease stage III: Seems to be stable.in fact his GFR is improved to 39 from from 40 mL/min. Avoid nephrotoxic drugs Medications reviewed. Recommend continue the patient on Cardizem CD 120 mg p.o. every 12 hours, and hydralazine 25 mg p.o. 3 times daily. Management plan discussed with Dr. Irvin, the attending physician on the case. Medical decision making is of moderate complexity. 40 minutes spent on this patient, with more than 50% of time spent in direct patient care. Cardiac status is stable. Will sign off the case as discussed with Dr. Irvin. If the patient desires he can follow-up with me in the office.
[2018-06-23] MEDS: ATORVASTATIN CALCIUM 10 MG TABLET PO SCH (22:36)
[2018-06-24] MEDS: HYDRALAZINE HCL 25 MG TABLET PO SCH ×3 (06:10→21:54)
[2018-06-24] MEDS: BUSPIRONE HCL 10 MG TABLET PO SCH ×3 (06:10→21:55)
[2018-06-24 07:46] LABS: ABSOLUTE MONOCYTES (AUTO) 1.8 10^3/uL (0.1-1.4); ABSOLUTE NEUT (AUTO) 9.8 10^3/uL (1.7-8.2); EOSINOPHILS % (AUTO) 0.4 % (0-6); HEMOGLOBIN 11.8 g/dL (13.5-17.0); LYMPHOCYTES % (AUTO) 7.7 % (13-45); MEAN CORPUSCULAR HEMOGLOBIN 31.8 pg (27.0-33.4); MEAN CORPUSCULAR HGB CONC 32.9 g/dL (32.0-36.0); MEAN CORPUSCULAR VOLUME 97 fl (80-97); MONOCYTES % (AUTO) 14.2 % (3-13); PLATELET COUNT 237 10^3/uL (150-450); RED BLOOD COUNT 3.73 10^6/uL (4.35-5.55); RED CELL DISTRIBUTION WIDTH 13.8 % (11.5-14.0); SEGMENTED NEUTROPHILS % (AUTO) 77.7 % (42-78); TOTAL CELLS COUNTED % (AUTO) 100 %; WHITE BLOOD COUNT 12.7 10^3/uL (4.0-10.5)
[2018-06-24 07:47] LABS: ANION GAP 8 (5-19); BLOOD UREA NITROGEN 38 mg/dL (7-20); CALCIUM 10.1 mg/dL (8.4-10.2); CARBON DIOXIDE 24 mmol/L (22-30); CHLORIDE 109 mmol/L (98-107); GLUCOSE 77 mg/dL (75-110); POTASSIUM 4.2 mmol/L (3.6-5.0); SODIUM 140.6 mmol/L (137-145)
[2018-06-24] MEDS ORDERED: LEVALBUTEROL HCL NEB 0.63 MG/3 ML AMPUL NEB PRN (08:52)
[2018-06-24] MEDS: LEVALBUTEROL HCL NEB 1.25 MG/3 ML AMPUL NEB SCH ×3 (09:01→20:04)
--- NOTE | 2018-06-24 09:16 | PDOC PROGRESS REPORT ---
Subjective Progress Note for:: 06/24/18 Subjective:: Patient doing fair Patient is denied any chest pain Patient still short of breath The patient's denied any abdominal pain no nausea no Patients feel shaky but sometimes Patient is very anxious Again patient is a very weak Discussed with the patient again about the rehab patients is agree Reason For Visit: PNEUMONIA Physical Exam Vital Signs: Temp Pulse Resp BP Pulse Ox 97.3 F 70 18 124/36 L 97 06/24/18 08:08 06/24/18 08:08 06/24/18 08:08 06/24/18 08:08 06/24/18 08:08 Intake & Output 06/23/18 06/24/18 06/25/18 06:59 06:59 06:59 Intake Total 1018 975 Output Total 1550 975 Balance -532 0 Weight 76.6 kg 75.6 kg General appearance: PRESENT: no acute distress, well-developed, well-nourished Head exam: PRESENT: atraumatic, normocephalic Eye exam: PRESENT: conjunctiva pink, EOMI, PERRLA. ABSENT: scleral icterus Ear exam: PRESENT: normal external ear exam Mouth exam: PRESENT: moist, tongue midline Neck exam: PRESENT: full ROM. ABSENT: carotid bruit, JVD, lymphadenopathy, thyromegaly Respiratory exam: PRESENT: clear to auscultation melania Cardiovascular exam: PRESENT: RRR. ABSENT: diastolic murmur, rubs, systolic murmur Vascular exam: PRESENT: normal capillary refill GI/Abdominal exam: PRESENT: normal bowel sounds, soft. ABSENT: distended, guarding, mass, organolmegaly, rebound, tenderness Rectal exam: PRESENT: deferred Extremities exam: ABSENT: pedal edema Neurological exam: PRESENT: alert, awake, oriented to person, oriented to place, oriented to time, oriented to situation, CN II-XII grossly intact. ABSENT: motor sensory deficit Psychiatric exam: PRESENT: appropriate affect, normal mood. ABSENT: homicidal ideation, suicidal ideation Skin exam: PRESENT: dry, intact, warm. ABSENT: cyanosis, rash Results Laboratory Results: 06/24/18 06:20 06/24/18 06:20 06/24/18 06/24/18 06:20 06:20 WBC 12.7 H RBC 3.73 L Hgb 11.8 L Hct 36.0 L MCV 97 MCH 31.8 MCHC 32.9 RDW 13.8 Plt Count 237 Seg Neutrophils % 77.7 Lymphocytes % 7.7 L Monocytes % 14.2 H Eosinophils % 0.4 Basophils % 0.0 Absolute Neutrophils 9.8 H Absolute Lymphocytes 1.0 Absolute Monocytes 1.8 H Absolute Eosinophils 0.0 Absolute Basophils 0.0 Sodium 140.6 Potassium 4.2 Chloride 109 H Carbon Dioxide 24 Anion Gap 8 BUN 38 H Creatinine 1.55 H Est GFR ( Amer) 52 L Est GFR (Non-Af Amer) 43 L Glucose 77 Calcium 10.1 06/15/18 06/16/18 19:50 03:25 NT-Pro-B Natriuret Pep 7520 H 7380 H Impressions: Renal Ultrasound 06/17/18 00:00 IMPRESSION: 1. Bilateral cortical thinning. 2. Intrarenal calculi are on the left. 3. 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 Chest CT 06/17/18 06:00 IMPRESSION: 2.5 x 1.7 cm cavitary nodule in the right upper lobe COPD. Pulmonary hypertension with prominent central pulmonary arteries Abdomen/Pelvis CT 06/18/18 00:00 IMPRESSION: No CT evidence of bowel obstruction. No gross constipation. Descending colon diverticuli without CT signs of acute diverticulitis. Chest X-Ray 06/18/18 00:00 IMPRESSION: Small pleural effusions. Likely linear atelectasis in the right lung. Lung Scan-VQ NM 06/18/18 00:00 IMPRESSION: Low probability of pulmonary emboli. Assessment & Plan - Diagnosis (1) Right upper lobe pneumonia Qualifiers: Pneumonia type: due to unspecified organism Qualified Code(s): J18.1 - Lobar pneumonia, unspecified organism Is this a current diagnosis for this admission?: Yes Plan: Continues to Levaquin 500 mg IV daily (2) COPD exacerbation Is this a current diagnosis for this admission?: Yes Plan: Continues to current medications (3) Respiratory distress Is this a current diagnosis for this admission?: Yes Plan: Continues to current medications and nebulizer and oxygen we will consult the pulmonary (4) Chronic kidney disease Qualifiers: Chronic kidney disease stage: stage 3 (moderate) Qualified Code(s): N18.3 - Chronic kidney disease, stage 3 (moderate) Is this a current diagnosis for this admission?: Yes Plan: Follow-up with nephrology Low potassium diet Kayexalate Given some IV fluid for the next 12 hours (5) Diastolic congestive heart failure Qualifiers: Heart failure chronicity: chronic Qualified Code(s): I50.32 - Chronic diastolic (congestive) heart failure Is this a current diagnosis for this admission?: Yes Plan: Still continues to hold the Lasix (6) Hypertension Qualifiers: Hypertension type: essential hypertension Qualified Code(s): I10 - Essential (primary) hypertension Is this a current diagnosis for this admission?: Yes Plan: Suggested the patient on hydralazine 50 mg p.o. every 8 (7) Hyperlipidemia Qualifiers: Hyperlipidemia type: unspecified Qualified Code(s): E78.5 - Hyperlipidemia, unspecified Is this a current diagnosis for this admission?: Yes (8) Chronic atrial fibrillation Is this a current diagnosis for this admission?: Yes Plan: Continues to Cardizem (9) Chronic constipation Is this a current diagnosis for this admission?: Yes Plan: Continues to Colace and MiraLAX (10) Benign prostatic hyperplasia Qualifiers: Lower urinary tract symptom presence: symptoms present Lower urinary tract symptom detail: urinary retention Qualified Code(s): N40.1 - Benign prostatic hyperplasia with lower urinary tract symptoms; R33.8 - Other retention of urine Is this a current diagnosis for this admission?: Yes (11) Hematuria Qualifiers: Hematuria type: unspecified type Qualified Code(s): R31.9 - Hematuria, unspecified Is this a current diagnosis for this admission?: Yes (12) Cavitary lesion of lung Is this a current diagnosis for this admission?: Yes Plan: Continues antibiotics Follow with the pulmonary - Time Time Spent with patient: 15-24 minutes Medications reviewed and adjusted accordingly: Yes Anticipated discharge: SNF Within: within 48 hours - Plan Summary Plan Summary: Continues to current medications Patients do not want to remove the [place]
[2018-06-24] MEDS: TAMSULOSIN HCL 0.4 MG CAP.SR.24H PO SCH (10:06)
[2018-06-24] MEDS: POLYETHYLENE GLYCOL 3350 POWDER 17 GM/1 PACKET PO SCH (10:06)
[2018-06-24] MEDS: ASPIRIN 81 MG TABLET, ENT COATED PO SCH (10:06)
[2018-06-24] MEDS: LEVOFLOXACIN 500 MG/D5W RTU 500 MG/100 ML RTUPB IV SCH (10:06)
[2018-06-24] MEDS: FAMOTIDINE 20 MG TABLET PO SCH (10:06)
[2018-06-24] MEDS: FINASTERIDE 5 MG TABLET PO SCH (10:06)
[2018-06-24] MEDS: ALLOPURINOL 100 MG TABLET PO SCH (10:06)
[2018-06-24] MEDS: DILTIAZEM HCL 120 MG CAP.SR.24H PO SCH ×2 (10:06→21:54)
[2018-06-24] MEDS: DOCUSATE SODIUM 100 MG CAPSULE PO SCH ×2 (10:06→17:16)
[2018-06-24] MEDS: GUAIFENESIN 600 MG TABLET.SA PO SCH ×2 (10:06→21:55)
[2018-06-24] MEDS: FLUTICASONE/VILANTEROL 200-25 MCG/DOSE IH SCH (10:06)
[2018-06-24] MEDS: TIOTROPIUM BROMIDE DPI 5 CAP/KIT (18 MCG/CAP) IH SCH (10:07)
--- NOTE | 2018-06-24 11:39 | RADIOLOGY REPORT (SQ) ---
EXAM DESCRIPTION: CHEST SINGLE VIEW COMPLETED DATE/TIME: 06/24/2018 10:51 am REASON FOR STUDY: copd COMPARISON: 06/18/2018. CT chest 06/17/2018. NUMBER OF VIEWS: One view. TECHNIQUE: Single frontal radiographic view of the chest acquired. LIMITATIONS: None. FINDINGS: LUNGS AND PLEURA: Similar appearance to prior. Mild indistinct vessels with central vascu lar congestion. Trace right pleural fluid is nonprogressive. No new or developing infiltrates. MEDIASTINUM AND HILAR STRUCTURES: No masses. Contour normal. HEART AND VASCULAR STRUCTURES: Heart normal in size. Normal vasculature. BONES: No acute findings. HARDWARE: None in the chest. OTHER: No other significant finding. IMPRESSION: Stable chest. TECHNICAL DOCUMENTATION: JOB ID: [id number] [employer]- All Rights Reserved Reading location - IP/workstation name: [email or web address]
[2018-06-24] MEDS: ATORVASTATIN CALCIUM 10 MG TABLET PO SCH (21:55)
--- NOTE | 2018-06-25 00:23 | PROGRESS NOTE E ---
Progress Note NAME: FAHEEM TOMAS : 1935 AGE: 83Y DATE: 06/24/2018 ROOM: 303 SUBJECTIVE: The patient is an 83-year-old male who came in with severe COPD exacerbation and bilateral pleural effusion on June 15, 2018. The patient was treated with anticholinergic and LABA/LAMA, oxygen, antibiotics. Chest CT scan showed absence of pulmonary embolism, but infiltrate involving the upper lobe and emphysematous changes in both lungs. The patient has been given Lasix, hydralazine and appeared to be doing well. Currently he is not requiring any oxygen and breathing comfortably at room air. Denies any nausea, vomiting, chest pain. Denies any purulent sputum production or hemoptysis. OBJECTIVE: GENERAL: The patient is awake, alert, coherent, oriented x3. VITAL SIGNS: Temperature of 98 degrees Fahrenheit, heart rate of 71, blood pressure is 156/54, respirations 18, oxygen saturation is 95% on room air. EYES: No jaundice or pallor. EARS, NOSE, AND THROAT: No ear drainage. No nasal discharge. CHEST AND LUNGS: No wheezing, no rhonchi, no coarse crackles. CARDIOVASCULAR: S1, S2 distinct. Normal rate and regular rhythm. ABDOMEN: Flabby, positive bowel sounds, soft, nondistended, nontender. EXTREMITIES: No joint swelling, no cellulitis. LABORATORY DATA: CBC done today showed a white count of 12.7, down from 20,000 on admission. Hemoglobin is 11.8, hematocrit is 36, platelet count is 237. ABG none here today. Chemistry done today shows sodium 140, potassium 4.2, chloride 109, CO2 is 34, BUN is 38, creatinine is 1.55, glucose 77, calcium is 10.1. IMAGING STUDIES: Chest x-ray done today is stable compared to chest x-ray done a few days ago. There is bilateral pleural effusion noted on the x-ray, more on the right than in the left side, but still very small. No new infiltrates noted. ASSESSMENT: 1. COPD, VERY SEVERE OR END-STAGE. Currently stable and not in acute bronchospasm. 2. EMPHYSEMA BY CHEST CT SCAN. 3. PNEUMONIA RIGHT UPPER LOBE. Based on the chest x-ray findings infiltrate noted in the right upper lobe, most likely they are due to a pneumonic process. 4. BILATERAL PLEURAL EFFUSION, RIGHT GREATER THAN LEFT. Note on today's chest x-ray and noted on a chest CT scan done on admission, but the pleural effusion is small. On admission the pleural effusion was more on the left than on the right side. Today's chest x-ray showed a bit more blunting on the right costophrenic angle, but pleural effusion is still small bilaterally. Presenting primarily as blunting of the costophrenic angle. PLAN/RECOMMENDATION: 1. Continue BREO 200 mcg inhaler 1 puff once daily. 2. Continue Spiriva inhaler 1 capsule to be inhaled once daily. 3. We will continue Levaquin p.o. for a total of 10 days. 4. The patient may take nebulizer treatment 1.25 mg every 6 hours as needed at home. 5. Low dose of Lasix 10 mg once daily. 6. Optimize blood pressure control. 7. Recommend pulmonary clinic follow up in 4 weeks after hospital discharge. If you have any questions, please feel free to call me. DICTATING PHYSICIAN: LOLIS ARRIAZA MD,YASIR,MPH [id number] PHY#: [id number] ID: [id number] JOB#: [id number] ACCT: [id number] cc: > MTDD
[2018-06-25 05:29] LABS: ANION GAP 8 (5-19); BLOOD UREA NITROGEN 42 mg/dL (7-20); CARBON DIOXIDE 23 mmol/L (22-30); CHLORIDE 111 mmol/L (98-107); GLUCOSE 90 mg/dL (75-110); POTASSIUM 4.7 mmol/L (3.6-5.0); SODIUM 141.5 mmol/L (137-145)
[2018-06-25] MEDS: HYDRALAZINE HCL 25 MG TABLET PO SCH ×3 (05:56→21:54)
[2018-06-25] MEDS: BUSPIRONE HCL 10 MG TABLET PO SCH ×3 (05:56→21:55)
[2018-06-25] MEDS: LEVALBUTEROL HCL NEB 1.25 MG/3 ML AMPUL NEB SCH ×3 (08:18→19:48)
--- NOTE | 2018-06-25 08:26 | PDOC PROGRESS REPORT ---
Subjective Progress Note for:: 06/25/18 Subjective:: Patient is currently doing same Patient still complaining of shortness of the breath Patient's does not require any oxygen's Patient seen by the pulmonary suggest the maximum treatments According to the charge coordinator continues to Lasix 20 mg but other than that nothi ng else can be done Patient's at this point denied any chest pain Patient's chest x-ray is all stable Appetite is still very poor Reason For Visit: PNEUMONIA Physical Exam Vital Signs: Temp Pulse Resp BP Pulse Ox 98.0 F 64 24 H 144/68 H 96 06/25/18 03:48 06/25/18 03:48 06/25/18 03:48 06/25/18 03:48 06/25/18 03:48 Intake & Output 06/24/18 06/25/18 06/26/18 06:59 06:59 06:59 Intake Total 975 1211 Output Total 975 1350 Balance 0 -139 Weight 75.6 kg 76.3 kg General appearance: PRESENT: no acute distress, well-developed, well-nourished Head exam: PRESENT: atraumatic, normocephalic Eye exam: PRESENT: conjunctiva pink, EOMI, PERRLA. ABSENT: scleral icterus Ear exam: PRESENT: normal external ear exam Mouth exam: PRESENT: moist, tongue midline Neck exam: PRESENT: full ROM. ABSENT: carotid bruit, JVD, lymphadenopathy, thyromegaly Respiratory exam: PRESENT: clear to auscultation melania Cardiovascular exam: PRESENT: RRR. ABSENT: diastolic murmur, rubs, systolic murmur Vascular exam: PRESENT: normal capillary refill GI/Abdominal exam: PRESENT: normal bowel sounds, soft. ABSENT: distended, guarding, mass, organolmegaly, rebound, tenderness Rectal exam: PRESENT: deferred Extremities exam: ABSENT: pedal edema Musculoskeletal exam: PRESENT: ambulatory Neurological exam: PRESENT: alert, awake, oriented to person, oriented to place, oriented to time, oriented to situation, CN II-XII grossly intact. ABSENT: motor sensory deficit Psychiatric exam: PRESENT: appropriate affect, normal mood. ABSENT: homicidal ideation, suicidal ideation Skin exam: PRESENT: dry, intact, warm. ABSENT: cyanosis, rash Results Laboratory Results: 06/24/18 06:20 06/25/18 03:57 06/25/18 03:57 Sodium 141.5 Potassium 4.7 Chloride 111 H Carbon Dioxide 23 Anion Gap 8 BUN 42 H Creatinine 1.64 H Est GFR ( Amer) 49 L Est GFR (Non-Af Amer) 40 L Glucose 90 Calcium 10.0 06/15/18 06/16/18 19:50 03:25 NT-Pro-B Natriuret Pep 7520 H 7380 H Impressions: Renal Ultrasound 06/17/18 00:00 IMPRESSION: 1. Bilateral cortical thinning. 2. Intrarenal calculi are on the left. 3. 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 Chest CT 06/17/18 06:00 IMPRESSION: 2.5 x 1.7 cm cavitary nodule in the right upper lobe COPD. Pulmonary hypertension with prominent central pulmonary arteries Abdomen/Pelvis CT 06/18/18 00:00 IMPRESSION: No CT evidence of bowel obstruction. No gross constipation. Descending colon diverticuli without CT signs of acute diverticulitis. Lung Scan-VQ NM 06/18/18 00:00 IMPRESSION: Low probability of pulmonary emboli. Chest X-Ray 06/24/18 00:00 IMPRESSION: Stable chest. Assessment & Plan - Diagnosis (1) Right upper lobe pneumonia Qualifiers: Pneumonia type: due to unspecified organism Qualified Code(s): J18.1 - Loba r pneumonia, unspecified organism Is this a current diagnosis for this admission?: Yes Plan: Currently all improving (2) COPD exacerbation Is this a current diagnosis for this admission?: Yes Plan: Continues to current medications (3) Respiratory distress Is this a current diagnosis for this admission?: Yes Plan: Continues to current medications and nebulizer and oxygen we will consult the pulmonary (4) Chronic kidney disease Qualifiers: Chronic kidney disease stage: stage 3 (moderate) Qualified Code(s): N18.3 - Chronic kidney disease, stage 3 (moderate) Is this a current diagnosis for this admission?: Yes Plan: Follow-up with nephrology Low potassium diet Kayexalate Given some IV fluid for the next 12 hours (5) Diastolic congestive heart failure Qualifiers: Heart failure chronicity: chronic Qualified Code(s): I50.32 - Chronic diastolic (congestive) heart failure Is this a current diagnosis for this admission?: Yes Plan: Continues to Lasix 20 mg p.o. daily (6) Hypertension Qualifiers: Hypertension type: essential hypertension Qualified Code(s): I10 - Essential (primary) hypertension Is this a current diagnosis for this admission?: Yes Plan: Suggested the patient on hydralazine 50 mg p.o. every 8 (7) Hyperlipidemia Qualifiers: Hyperlipidemia type: unspecified Qualified Code(s): E78.5 - Hyperlipidemia, unspecified Is this a current diagnosis for this admission?: Yes (8) Chronic atrial fibrillation Is this a current diagnosis for this admission?: Yes Plan: Continues to Cardizem (9) Chronic constipation Is this a current diagnosis for this admission?: Yes Plan: Continues to Colace and MiraLAX (10) Benign prostatic hyperplasia Qualifiers: Lower urinary tract symptom presence: symptoms present Lower urinary tract symptom detail: urinary retention Qualified Code(s): N40.1 - Benign prostatic hyperplasia with lower urinary tract symptoms; R33.8 - Other retention of urine Is this a current diagnosis for this admission?: Yes Plan: Continues to Flomax and finasteride (11) Hematuria Qualifiers: Hematuria type: unspecified type Qualified Code(s): R31.9 - Hematuria, unspecified Is this a current diagnosis for this admission?: Yes (12) Cavitary lesion of lung Is this a current diagnosis for this admission?: Yes - Time Time Spent with patient: 25-34 minutes Medications reviewed and adjusted accordingly: Yes Anticipated discharge: SNF Within: within 24 hours - Plan Summary Plan Summary: Discussed with the patient and also discussed with the patient's son Casper regarding the patient's current conditions Patients get a maximum benefit in the hospital at this point At this point discussed with the pulmonary and cardiology Patients get a benefit to go to the rehab facility Overall patient's prognosis is poor due to the multiple comorbidity
[2018-06-25] MEDS: TIOTROPIUM BROMIDE DPI 5 CAP/KIT (18 MCG/CAP) IH SCH (09:32)
[2018-06-25] MEDS: FLUTICASONE/VILANTEROL 200-25 MCG/DOSE IH SCH (09:33)
[2018-06-25] MEDS: POLYETHYLENE GLYCOL 3350 POWDER 17 GM/1 PACKET PO SCH (09:34)
[2018-06-25] MEDS: LEVOFLOXACIN 500 MG/D5W RTU 500 MG/100 ML RTUPB IV SCH (09:35)
[2018-06-25] MEDS: FUROSEMIDE 20 MG TABLET PO SCH (09:36)
[2018-06-25] MEDS: ASPIRIN 81 MG TABLET, ENT COATED PO SCH (09:36)
[2018-06-25] MEDS: FINASTERIDE 5 MG TABLET PO SCH (09:36)
[2018-06-25] MEDS: DILTIAZEM HCL 120 MG CAP.SR.24H PO SCH ×2 (09:36→21:54)
[2018-06-25] MEDS: DOCUSATE SODIUM 100 MG CAPSULE PO SCH ×2 (09:36→17:24)
[2018-06-25] MEDS: TAMSULOSIN HCL 0.4 MG CAP.SR.24H PO SCH (09:36)
[2018-06-25] MEDS: FAMOTIDINE 20 MG TABLET PO SCH (09:36)
[2018-06-25] MEDS: ALLOPURINOL 100 MG TABLET PO SCH (09:37)
[2018-06-25] MEDS: GUAIFENESIN 600 MG TABLET.SA PO SCH ×2 (09:37→21:55)
[2018-06-25] MEDS ORDERED: FUROSEMIDE 20 MG TABLET PO SCH (10:00)
--- NOTE | 2018-06-25 10:09 | PULMONARY FUNCTION TEST ---
PULMONARY FUNCTION TEST PATIENT NAME: FAHEEM TOMAS MR#: [id number] ROOM#: 303 DATE OF STUDY: 06/18/2018 AGE/RACE/GENDER: 83 M REFERRING MD: Lolis Arriaza MD Procedure: Spirometry Pre-post bronchodilator Report: Patient is 83 year old white male who came in with shortness of breath. The bedside spirometry has no reference values beyond 80 years old. Patient refused to do spirometry at the PFT lab.Patient's FEV 1/FVC post bronchodilator is very low at 39% and FEV1 also very low at 0.71% predicted post bronchodilator. 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 Patient would require regular spirometry or PFT once discharged from the hospital. INTERPRETING PHYSICIAN: LOLIS ARRIAZA MD,YASIR,MPH /: MTEFFT TT: [id number] ID: [id number] /: [id number] TD: [id number] JOB: [id number] cc:Gumaro CASEY M.D. > MTDEdelmira
[2018-06-25] MEDS: ATORVASTATIN CALCIUM 10 MG TABLET PO SCH (21:54)
[2018-06-26] MEDS: HYDRALAZINE HCL 25 MG TABLET PO SCH ×3 (05:34→21:36)
[2018-06-26] MEDS: BUSPIRONE HCL 10 MG TABLET PO SCH ×3 (05:34→21:36)
[2018-06-26 06:35] LABS: ABSOLUTE LYMPHOCYTES (AUTO) 0.8 10^3/uL (0.5-4.7); ABSOLUTE MONOCYTES (AUTO) 1.4 10^3/uL (0.1-1.4); ABSOLUTE NEUT (AUTO) 9.7 10^3/uL (1.7-8.2); BASOPHILS % (AUTO) 0.1 % (0-2); EOSINOPHILS % (AUTO) 0.4 % (0-6); HEMATOCRIT 35.9 % (37.9-51.0); HEMOGLOBIN 11.9 g/dL (13.5-17.0); LYMPHOCYTES % (AUTO) 6.4 % (13-45); MEAN CORPUSCULAR HGB CONC 33.1 g/dL (32.0-36.0); MEAN CORPUSCULAR VOLUME 96 fl (80-97); MONOCYTES % (AUTO) 11.7 % (3-13); PLATELET COUNT 243 10^3/uL (150-450); RED BLOOD COUNT 3.72 10^6/uL (4.35-5.55); RED CELL DISTRIBUTION WIDTH 14.2 % (11.5-14.0); SEGMENTED NEUTROPHILS % (AUTO) 81.4 % (42-78); TOTAL CELLS COUNTED % (AUTO) 100 %
[2018-06-26 06:51] LABS: ANION GAP 6 (5-19); BLOOD UREA NITROGEN 42 mg/dL (7-20); CALCIUM 10.3 mg/dL (8.4-10.2); CARBON DIOXIDE 25 mmol/L (22-30); CHLORIDE 110 mmol/L (98-107); GLUCOSE 97 mg/dL (75-110); POTASSIUM 4.4 mmol/L (3.6-5.0); SODIUM 141.3 mmol/L (137-145)
[2018-06-26] MEDS: LEVALBUTEROL HCL NEB 1.25 MG/3 ML AMPUL NEB SCH ×3 (07:47→20:05)
--- NOTE | 2018-06-26 09:03 | PDOC PROGRESS REPORT ---
Subjective Progress Note for:: 06/26/18 Subjective:: Patient is currently doing same Patient still complaining of shortness of the breath Patient's does not require any oxygen's Patient seen by the pulmonary suggest the maximum treatments According to the moss bleacher continues to Lasix 20 mg but other than that nothi ng else can be done Patient's at this point denied any chest pain Patient's chest x-ray is all stable Appetite is still very poor Reason For Visit: PNEUMONIA Physical Exam Vital Signs: Temp Pulse Resp BP Pulse Ox 98.2 F 71 18 143/70 H 95 06/26/18 03:42 06/26/18 07:46 06/26/18 07:46 06/26/18 03:42 06/26/18 07:46 Intake & Output 06/25/18 06/26/18 06/27/18 06:59 06:59 06:59 Intake Total 1211 1234 Output Total 1350 1050 Balance -139 184 Weight 76.3 kg 76.2 kg General appearance: PRESENT: no acute distress, well-developed, well-nourished Head exam: PRESENT: atraumatic, normocephalic Eye exam: PRESENT: conjunctiva pink, EOMI, PERRLA. ABSENT: scleral icterus Ear exam: PRESENT: normal external ear exam Mouth exam: PRESENT: moist, tongue midline Neck exam: PRESENT: full ROM. ABSENT: carotid bruit, JVD, lymphadenopathy, thyromegaly Respiratory exam: PRESENT: clear to auscultation melania Cardiovascular exam: PRESENT: irregular rhythm. ABSENT: diastolic murmur, rubs, systolic murmur Vascular exam: PRESENT: normal capillary refill GI/Abdominal exam: PRESENT: normal bowel sounds, soft. ABSENT: distended, g uarding, mass, organolmegaly, rebound, tenderness Rectal exam: PRESENT: deferred Neurological exam: PRESENT: alert, awake, oriented to person, oriented to place, oriented to time, oriented to situation, CN II-XII grossly intact. ABSENT: motor sensory deficit Psychiatric exam: PRESENT: appropriate affect, normal mood. ABSENT: homicidal ideation, suicidal ideation Skin exam: PRESENT: dry, intact, warm. ABSENT: cyanosis, rash Results Laboratory Results: 06/26/18 05:44 06/26/18 05:44 06/26/18 06/26/18 05:44 05:44 WBC 12.0 H RBC 3.72 L Hgb 11.9 L Hct 35.9 L MCV 96 MCH 32.0 MCHC 33.1 RDW 14.2 H Plt Count 243 Seg Neutrophils % 81.4 H Lymphocytes % 6.4 L Monocytes % 11.7 Eosinophils % 0.4 Basophils % 0.1 Absolute Neutrophils 9.7 H Absolute Lymphocytes 0.8 Absolute Monocytes 1.4 Absolute Eosinophils 0.0 Absolute Basophils 0.0 Sodium 141.3 Potassium 4.4 Chloride 110 H Carbon Dioxide 25 Anion Gap 6 BUN 42 H Creatinine 1.66 H Est GFR ( Amer) 48 L Est GFR (Non-Af Amer) 40 L Glucose 97 Calcium 10.3 H 06/15/18 06/16/18 19:50 03:25 NT-Pro-B Natriuret Pep 7520 H 7380 H Impressions: Renal Ultrasound 06/17/18 00:00 IMPRESSION: 1. Bilateral cortical thinning. 2. Intrarenal calculi are on the left. 3. 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 Chest CT 06/17/18 06:00 IMPRESSION: 2.5 x 1.7 cm cavitary nodule in the right upper lobe COPD. Pulmonary hypertension with prominent central pulmonary arteries Abdomen/Pelvis CT 06/18/18 00:00 IMPRESSION: No CT evidence of bowel obstruction. No gross constipation. Descending colon diverticuli without CT signs of acute diverticulitis. Lung Scan-VQ NM 06/18/18 00:00 IMPRESSION: Low probability of pulmonary emboli. Chest X-Ray 06/24/18 00:00 IMPRESSION: Stable chest. Assessment & Plan - Diagnosis (1) Right upper lobe pneumonia Qualifiers: Pneumonia type: due to unspecified organism Qualified Code(s): J18.1 - Lobar pneumonia, unspecified organism Is this a current diagnosis for this admission?: Yes Plan: Currently all improving (2) COPD exacerbation Is this a current diagnosis for this admission?: Yes Plan: Continues to current medications (3) Respiratory distress Is this a current diagnosis for this admission?: Yes Plan: Continues to current medications and nebulizer and oxygen we will consult the pulmonary (4) Chronic kidney disease Qualifiers: Chronic kidney disease stage: stage 3 (moderate) Qualified Code(s): N18.3 - Chronic kidney disease, stage 3 (moderate) Is this a current diagnosis for this admission?: Yes Plan: Follow-up with nephrology Low potassium diet Kayexalate Given some IV fluid for the next 12 hours (5) Diastolic congestive heart failure Qualifiers: Heart failure chronicity: chronic Qualified Code(s): I50.32 - Chronic diastolic (congestive) heart failure Is this a current diagnosis for this admission?: Yes Plan: Continues to Lasix 20 mg p.o. daily (6) Hypertension Qualifiers: Hypertension type: essential hypertension Qualified Code(s): I10 - Essenti al (primary) hypertension Is this a current diagnosis for this admission?: Yes Plan: Suggested the patient on hydralazine 50 mg p.o. every 8 (7) Hyperlipidemia Qualifiers: Hyperlipidemia type: unspecified Qualified Code(s): E78.5 - Hyperlipidemia, unspecified Is this a current diagnosis for this admission?: Yes (8) Chronic atrial fibrillation Is this a current diagnosis for this admission?: Yes (9) Chronic constipation Is this a current diagnosis for this admission?: Yes (10) Benign prostatic hyperplasia Qualifiers: Lower urinary tract symptom presence: symptoms present Lower urinary tract symptom detail: urinary retention Qualified Code(s): N40.1 - Benign prostatic hyperplasia with lower urinary tract symptoms; R33.8 - Other retention of urine Is this a current diagnosis for this admission?: Yes Plan: Continues to Flomax and finasteride (11) Hematuria Qualifiers: Hematuria type: unspecified type Qualified Code(s): R31.9 - Hematuria, unspecified Is this a current diagnosis for this admission?: Yes (12) Cavitary lesion of lung Is this a current diagnosis for this admission?: Yes Plan: Continues antibiotics Follow with the pulmonary - Time Time Spent with patient: 15-24 minutes Medications reviewed and adjusted accordingly: Yes Anticipated discharge: SNF Within: Other - Plan Summary Plan Summary: We will start the patient on Flonase Repeat the chest x-ray Continues the current medications Start the patient on the Celexa for the depressions
[2018-06-26] MEDS: TIOTROPIUM BROMIDE DPI 5 CAP/KIT (18 MCG/CAP) IH SCH (09:57)
[2018-06-26] MEDS: FLUTICASONE/VILANTEROL 200-25 MCG/DOSE IH SCH (09:57)
[2018-06-26] MEDS: FLUTICASONE NASAL SPRAY 50 MCG/SPRY 120 SPRAY/16 GM NASL SCH ×2 (09:58→21:37)
[2018-06-26] MEDS: DOCUSATE SODIUM 100 MG CAPSULE PO SCH ×2 (09:59→17:31)
[2018-06-26] MEDS: GUAIFENESIN 600 MG TABLET.SA PO SCH ×2 (09:59→21:36)
[2018-06-26] MEDS: FINASTERIDE 5 MG TABLET PO SCH (09:59)
[2018-06-26] MEDS: ASPIRIN 81 MG TABLET, ENT COATED PO SCH (09:59)
[2018-06-26] MEDS: POLYETHYLENE GLYCOL 3350 POWDER 17 GM/1 PACKET PO SCH (09:59)
[2018-06-26] MEDS: FAMOTIDINE 20 MG TABLET PO SCH (10:00)
[2018-06-26] MEDS: FUROSEMIDE 20 MG TABLET PO SCH (10:00)
[2018-06-26] MEDS: DILTIAZEM HCL 120 MG CAP.SR.24H PO SCH ×2 (10:00→21:36)
[2018-06-26] MEDS: TAMSULOSIN HCL 0.4 MG CAP.SR.24H PO SCH (10:00)
[2018-06-26] MEDS: LEVOFLOXACIN 500 MG/D5W RTU 500 MG/100 ML RTUPB IV SCH (10:00)
[2018-06-26] MEDS: ALLOPURINOL 100 MG TABLET PO SCH (10:00)
[2018-06-26] MEDS ORDERED: CITALOPRAM HYDROBROMIDE 20 MG TABLET PO SCH (10:00)
--- NOTE | 2018-06-26 10:26 | RADIOLOGY REPORT (SQ) ---
EXAM DESCRIPTION: CHEST SINGLE VIEW COMPLETED DATE/TIME: 06/26/2018 10:15 am REASON FOR STUDY: pnemonia COMPARISON: 06/24/2018 NUMBER OF VIEWS: One view. TECHNIQUE: Single frontal radiographic image of the chest acquired. LIMITATIONS: None. FINDINGS: LUNGS AND PLEURA: Stable appearance. MEDIASTINUM AND HILAR STRUCTURES: Stable heart size and mediastinal structures. HEART AND VASCULAR STRUCTURES: Stable appearance. BONES: No acute findings. HARDWARE: None in the chest. OTHER: No other significant finding. IMPRESSION: STABLE APPEARANCE OF THE CHEST. TECHNICAL DOCUMENTATION: JOB ID: [id number] [email or web address]- All Rights Reserved Reading location - IP/workstation name: [email or web address]
[2018-06-26] MEDS ORDERED: LORAZEPAM 0.5 MG TABLET PO ONE (13:00)
[2018-06-26] MEDS: ATORVASTATIN CALCIUM 10 MG TABLET PO SCH (21:36)
[2018-06-27] MEDS: BUSPIRONE HCL 10 MG TABLET PO SCH ×3 (05:21→21:50)
[2018-06-27] MEDS: HYDRALAZINE HCL 25 MG TABLET PO SCH ×3 (05:21→21:50)
[2018-06-27 06:14] LABS: ANION GAP 10 (5-19); BLOOD UREA NITROGEN 47 mg/dL (7-20); CALCIUM 9.8 mg/dL (8.4-10.2); CARBON DIOXIDE 24 mmol/L (22-30); CHLORIDE 109 mmol/L (98-107); GLUCOSE 102 mg/dL (75-110); POTASSIUM 4.4 mmol/L (3.6-5.0); SODIUM 142.9 mmol/L (137-145)
--- NOTE | 2018-06-27 09:05 | PDOC PROGRESS REPORT ---
Subjective Progress Note for:: 06/27/18 Subjective:: Patient is currently doing same Patient still complaining of shortness of the breath Patient's does not require any oxygen's Patient seen by the pulmonary suggest the maximum treatments According to the recycling coordinator continues to Lasix 20 mg but other than that nothi ng else can be done Patient's at this point denied any chest pain Patient's chest x-ray is all stable Appetite is still very poor After giving the lorazepam patients feel much better Reason For Visit: PNEUMONIA Physical Exam Vital Signs: Temp Pulse Resp BP Pulse Ox 97.8 F 60 16 148/59 H 97 06/27/18 03:32 06/27/18 07:00 06/27/18 03:32 06/27/18 03:32 06/27/18 03:32 Intake & Output 06/26/18 06/27/18 06/28/18 06:59 06:59 06:59 Intake Total 1234 1280 Output Total 1050 1150 Balance 184 130 Weight 76.2 kg 74.3 kg General appearance: PRESENT: no acute distress, well-developed, well-nourished Head exam: PRESENT: atraumatic, normocephalic Eye exam: PRESENT: conjunctiva pink, EOMI, PERRLA. ABSENT: scleral icterus Ear exam: PRESENT: normal external ear exam Mouth exam: PRESENT: moist, tongue midline Neck exam: PRESENT: full ROM. ABSENT: carotid bruit, JVD, lymphadenopathy, thyromegaly Respiratory exam: PRESENT: clear to auscultation melania Cardiovascular exam: PRESENT: RRR. ABSENT: diastolic murmur, rubs, systolic murmur Vascular exam: PRESENT: normal capillary refill GI/Abdominal exam: PRESENT: normal bowel sounds, soft. ABSENT: distended, guarding, mass, organolmegaly, rebound, tenderness Rectal exam: PRESENT: deferred Neurological exam: PRESENT: alert, awake, oriented to person, oriented to place, oriented to time, oriented to situation, CN II-XII grossly intact. ABSENT: motor sensory deficit Psychiatric exam: PRESENT: appropriate affect, normal mood. ABSENT: homicidal ideation, suicidal ideation Skin exam: PRESENT: dry, intact, warm. ABSENT: cyanosis, rash Results Laboratory Results: 06/26/18 05:44 06/27/18 05:07 06/27/18 05:07 Sodium 142.9 Potassium 4.4 Chloride 109 H Carbon Dioxide 24 Anion Gap 10 BUN 47 H Creatinine 1.70 H Est GFR ( Amer) 47 L Est GFR (Non-Af Amer) 39 L Glucose 102 Calcium 9.8 06/15/18 06/16/18 19:50 03:25 NT-Pro-B Natriuret Pep 7520 H 7380 H Impressions: Renal Ultrasound 06/17/18 00:00 IMPRESSION: 1. Bilateral cortical thinning. 2. Intrarenal calculi are on the left. 3. 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 Chest CT 06/17/18 06:00 IMPRESSION: 2.5 x 1.7 cm cavitary nodule in the right upper lobe COPD. Pulmonary hypertension with prominent central pulmonary arteries Abdomen/Pelvis CT 06/18/18 00:00 IMPRESSION: No CT evidence of bowel obstruction. No gross constipation. Maik cending colon diverticuli without CT signs of acute diverticulitis. Lung Scan-VQ NM 06/18/18 00:00 IMPRESSION: Low probability of pulmonary emboli. Chest X-Ray 06/26/18 00:00 IMPRESSION: STABLE APPEARANCE OF THE CHEST. Assessment & Plan - Diagnosis (1) Right upper lobe pneumonia Qualifiers: Pneumonia type: due to unspecified organism Qualified Code(s): J18.1 - Lobar pneumonia, unspecified organism Is this a current diagnosis for this admission?: Yes (2) COPD exacerbation Is this a current diagnosis for this admission?: Yes (3) Respiratory distress Is this a current diagnosis for this admission?: Yes (4) Chronic kidney disease Qualifiers: Chronic kidney disease stage: stage 3 (moderate) Qualified Code(s): N18.3 - Chronic kidney disease, stage 3 (moderate) Is this a current diagnosis for this admission?: Yes (5) Diastolic congestive heart failure Qualifiers: Heart failure chronicity: chronic Qualified Code(s): I50.32 - Chronic diastolic (congestive) heart failure Is this a current diagnosis for this admission?: Yes (6) Hypertension Qualifiers: Hypertension type: essential hypertension Qualified Code(s): I10 - Essential (primary) hypertension Is this a current diagnosis for this admission?: Yes (7) Hyperlipidemia Qualifiers: Hyperlipidemia type: unspecified Qualified Code(s): E78.5 - Hyperlipidemia, unspecified Is this a current diagnosis for this admission?: Yes (8) Chronic atrial fibrillation Is this a current diagnosis for this admission?: Yes (9) Chronic constipation Is this a current diagnosis for this admission?: Yes (10) Benign prostatic hyperplasia Qualifiers: Lower urinary tract symptom presence: symptoms present Lower urinary tract symptom detail: urinary retention Qualified Code(s): N40.1 - Benign prostatic hyperplasia with lower urinary tract symptoms; R33.8 - Other retention of urine Is this a current diagnosis for this admission?: Yes (11) Hematuria Qualifiers: Hematuria type: unspecified type Qualified Code(s): R31.9 - Hematuria, unspecified Is this a current diagnosis for this admission?: Yes (12) Cavitary lesion of lung Is this a current diagnosis for this admission?: Yes - Time Time Spent with patient: 15-24 minutes - Plan Summary Plan Summary: Continues to current medications
[2018-06-27] MEDS: LEVALBUTEROL HCL NEB 1.25 MG/3 ML AMPUL NEB SCH ×3 (09:15→19:46)
[2018-06-27] MEDS: TAMSULOSIN HCL 0.4 MG CAP.SR.24H PO SCH (09:33)
[2018-06-27] MEDS: FINASTERIDE 5 MG TABLET PO SCH (09:33)
[2018-06-27] MEDS: ASPIRIN 81 MG TABLET, ENT COATED PO SCH (09:33)
[2018-06-27] MEDS: DILTIAZEM HCL 120 MG CAP.SR.24H PO SCH ×2 (09:33→21:50)
[2018-06-27] MEDS: GUAIFENESIN 600 MG TABLET.SA PO SCH ×2 (09:33→21:50)
[2018-06-27] MEDS: POLYETHYLENE GLYCOL 3350 POWDER 17 GM/1 PACKET PO SCH (09:33)
[2018-06-27] MEDS: DOCUSATE SODIUM 100 MG CAPSULE PO SCH ×2 (09:33→17:18)
[2018-06-27] MEDS: FLUTICASONE NASAL SPRAY 50 MCG/SPRY 120 SPRAY/16 GM NASL SCH ×2 (09:34→21:55)
[2018-06-27] MEDS: FAMOTIDINE 20 MG TABLET PO SCH (09:34)
[2018-06-27] MEDS: ALLOPURINOL 100 MG TABLET PO SCH (09:34)
[2018-06-27] MEDS: FUROSEMIDE 20 MG TABLET PO SCH (09:34)
[2018-06-27] MEDS: FLUTICASONE/VILANTEROL 200-25 MCG/DOSE IH SCH (09:35)
[2018-06-27] MEDS: TIOTROPIUM BROMIDE DPI 5 CAP/KIT (18 MCG/CAP) IH SCH (09:37)
[2018-06-27] MEDS: ALPRAZOLAM 0.25 MG TABLET PO PRN (17:24)
[2018-06-27] MEDS: ATORVASTATIN CALCIUM 10 MG TABLET PO SCH (21:50)
[2018-06-28] MEDS: BUSPIRONE HCL 10 MG TABLET PO SCH ×3 (05:58→21:22)
[2018-06-28] MEDS: HYDRALAZINE HCL 25 MG TABLET PO SCH ×3 (05:58→21:22)
[2018-06-28 06:57] LABS: ANION GAP 10 (5-19); BLOOD UREA NITROGEN 46 mg/dL (7-20); CALCIUM 9.9 mg/dL (8.4-10.2); CARBON DIOXIDE 24 mmol/L (22-30); CHLORIDE 108 mmol/L (98-107); GLUCOSE 97 mg/dL (75-110); POTASSIUM 4.3 mmol/L (3.6-5.0); SODIUM 141.6 mmol/L (137-145)
[2018-06-28] MEDS: LEVALBUTEROL HCL NEB 1.25 MG/3 ML AMPUL NEB SCH ×3 (08:16→20:01)
[2018-06-28] MEDS: FINASTERIDE 5 MG TABLET PO SCH (09:31)
[2018-06-28] MEDS: DOCUSATE SODIUM 100 MG CAPSULE PO SCH ×2 (09:31→17:17)
[2018-06-28] MEDS: ALLOPURINOL 100 MG TABLET PO SCH (09:31)
[2018-06-28] MEDS: GUAIFENESIN 600 MG TABLET.SA PO SCH ×2 (09:31→21:22)
[2018-06-28] MEDS: TAMSULOSIN HCL 0.4 MG CAP.SR.24H PO SCH (09:31)
[2018-06-28] MEDS: FUROSEMIDE 20 MG TABLET PO SCH (09:31)
[2018-06-28] MEDS: FLUTICASONE NASAL SPRAY 50 MCG/SPRY 120 SPRAY/16 GM NASL SCH ×2 (09:32→21:22)
[2018-06-28] MEDS: DILTIAZEM HCL 120 MG CAP.SR.24H PO SCH ×2 (09:32→21:22)
[2018-06-28] MEDS: ASPIRIN 81 MG TABLET, ENT COATED PO SCH (09:32)
[2018-06-28] MEDS: FAMOTIDINE 20 MG TABLET PO SCH (09:32)
[2018-06-28] MEDS: FLUTICASONE/VILANTEROL 200-25 MCG/DOSE IH SCH (09:32)
[2018-06-28] MEDS: POLYETHYLENE GLYCOL 3350 POWDER 17 GM/1 PACKET PO SCH (09:35)
[2018-06-28] MEDS: TIOTROPIUM BROMIDE DPI 5 CAP/KIT (18 MCG/CAP) IH SCH (10:01)
--- NOTE | 2018-06-28 10:07 | PDOC PROGRESS REPORT ---
Subjective Progress Note for:: 06/28/18 Subjective:: Patient is currently doing fair Patient received 1 dose of the Xanax which really helped for the patient anxiety symptoms Patient's cough is getting better Patient appetite is poor Reason For Visit: PNEUMONIA Physical Exam Vital Signs: Temp Pulse Resp BP Pulse Ox 97.9 F 78 18 125/48 L 93 06/28/18 04:32 06/28/18 08:17 06/28/18 08:17 06/28/18 04:32 06/28/18 08:17 Intake & Output 06/27/18 06/28/18 06/29/18 06:59 06:59 06:59 Intake Total 1280 1192 Output Total 1150 1125 Balance 130 67 Weight 74.3 kg 74.2 kg General appearance: PRESENT: no acute distress, well-developed, well-nourished Head exam: PRESENT: atraumatic, normocephalic Eye exam: PRESENT: conjunctiva pink, EOMI, PERRLA. ABSENT: scleral icterus Ear exam: PRESENT: normal external ear exam Mouth exam: PRESENT: moist, tongue midline Neck exam: PRESENT: full ROM. ABSENT: carotid bruit, JVD, lymphadenopathy, thyr omegaly Respiratory exam: PRESENT: clear to auscultation melania Cardiovascular exam: PRESENT: RRR. ABSENT: diastolic murmur, rubs, systolic murmur Vascular exam: PRESENT: normal capillary refill GI/Abdominal exam: PRESENT: normal bowel sounds, soft. ABSENT: distended, guarding, mass, organolmegaly, rebound, tenderness Rectal exam: PRESENT: deferred Extremities exam: ABSENT: pedal edema Neurological exam: PRESENT: alert, awake, oriented to person, oriented to place, oriented to time, oriented to situation, CN II-XII grossly intact. ABSENT: motor sensory deficit Psychiatric exam: PRESENT: appropriate affect, normal mood. ABSENT: homicidal ideation, suicidal ideation Skin exam: PRESENT: dry, intact, warm. ABSENT: cyanosis, rash Results Laboratory Results: 06/26/18 05:44 06/28/18 06:13 06/28/18 06:13 Sodium 141.6 Potassium 4.3 Chloride 108 H Carbon Dioxide 24 Anion Gap 10 BUN 46 H Creatinine 1.80 H Est GFR ( Amer) 44 L Est GFR (Non-Af Amer) 36 L Glucose 97 Calcium 9.9 06/15/18 06/16/18 19:50 03:25 NT-Pro-B Natriuret Pep 7520 H 7380 H Impressions: Renal Ultrasound 06/17/18 00:00 IMPRESSION: 1. Bilateral cortical thinning. 2. Intrarenal calculi are on the left. 3. 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 Chest CT 06/17/18 06:00 IMPRESSION: 2.5 x 1.7 cm cavitary nodule in the right upper lobe COPD. Pulmonary hypertension with prominent central pulmonary arteries Abdomen/Pelvis CT 06/18/18 00:00 IMPRESSION: No CT evidence of bowel obstruction. No gross constipation. Descending colon diverticuli without CT signs of acute diverticulitis. Lung Scan-VQ NM 06/18/18 00:00 IMPRESSION: Low probability of pulmonary emboli. Chest X-Ray 06/26/18 00:00 IMPRESSION: STABLE APPEARANCE OF THE CHEST. Assessment & Plan - Diagnosis (1) Right upper lobe pneumonia Qualifiers: Pneumonia type: due to unspecified organism Qualified Code(s): J18.1 - Lobar pneumonia, unspecified organism Is this a current diagnosis for this admission?: Yes Plan: We will put the p.o. antibiotic (2) COPD exacerbation Is this a current diagnosis for this admission?: Yes Plan: Continues to current medications (3) Respiratory distress Is this a current diagnosis for this admission?: Yes Plan: Continues to current medications and nebulizer and oxygen we will consult the pulmonary (4) Chronic kidney disease Qualifiers: Chronic kidney disease stage: stage 3 (moderate) Qualified Code(s): N18.3 - Chronic kidney disease, stage 3 (moderate) Is this a current diagnosis for this admission?: Yes Plan: Follow-up with nephrology Low potassium diet Kayexalate Given some IV fluid for the next 12 hours (5) Diastolic congestive heart failure Qualifiers: Heart failure chronicity: chronic Qualified Code(s): I50.32 - Chronic diastolic (congestive) heart failure Is this a current diagnosis for this admission?: Yes Plan: Continues to Lasix 20 mg p.o. daily (6) Hypertension Qualifiers: Hypertension type: essential hypertension Qualified Code(s): I10 - Essential (primary) hypertension Is this a current diagnosis for this admission?: Yes Plan: Suggested the patient on hydralazine 50 mg p.o. every 8 (7) Hyperlipidemia Qualifiers: Hyperlipidemia type: unspecified Qualified Code(s): E78.5 - Hyperlipidemia, unspecified Is this a current diagnosis for this admission?: Yes (8) Chronic atrial fibrillation Is this a current diagnosis for this admission?: Yes Plan: Continues to Cardizem (9) Chronic constipation Is this a current diagnosis for this admission?: Yes (10) Benign prostatic hyperplasia Qualifiers: Lower urinary tract symptom presence: symptoms present Lower urinary tract symptom detail: urinary retention Qualified Code(s): N40.1 - Benign prostatic hyperplasia with lower urinary tract symptoms; R33.8 - Other retention of urine Is this a current diagnosis for this admission?: Yes Plan: Continues to Flomax and finasteride (11) Hematuria Qualifiers: Hematuria type: unspecified type Qualified Code(s): R31.9 - Hematuria, unspecified Is this a current diagnosis for this admission?: Yes (12) Cavitary lesion of lung Is this a current diagnosis for this admission?: Yes Plan: Repeat the CT of the chest - Time Time Spent with patient: 15-24 minutes Medications reviewed and adjusted accordingly: Yes Anticipated discharge: SNF Within: within 24 hours - Plan Summary Plan Summary: Continues to current medications
[2018-06-28] MEDS: CEFUROXIME 500 MG TABLET PO SCH ×2 (11:07→21:22)
--- NOTE | 2018-06-28 12:38 | RADIOLOGY REPORT (SQ) ---
EXAM DESCRIPTION: CT CHEST WITHOUT COMPLETED DATE/TIME: 06/28/2018 10:54 am REASON FOR STUDY: copd COMPARISON: Chest radiograph 06/26/2018 TECHNIQUE: CT scan performed of the chest without intravenous contrast. Images reviewed with lung, soft tissue and bone windows. Reconstructed coronal and sagittal MPR images reviewed. All images st ored on PACS. All CT scanners at this facility use dose modulation, iterative reconstruction, and/or weight based d osing when appropriate to reduce radiation dose to as low as reasonably achievable (ALARA). [facility]: Dose Right [facility]: CareDose [facility]: Dose Right [facility]: Teradose 4D [facility]: [employer] RADIATION DOSE: CT Rad equipment meets quality standard of care and radiation dose reduction techniq ues were employed. CTDIvol: 7.2 mGy. DLP: 292 mGy-cm. mGy. LIMITATIONS: No technical limitations. FINDINGS: LUNGS AND PLEURA: Bilateral pleural effusions left greater than right. Fluid in the fissu re on the right. Scattered ground-glass opacities in lungs. HILAR AND MEDIASTINAL STRUCTURES: No identified masses or abnormal nodes. No obvious aneurysm. HEART AND VASCULAR STRUCTURES: No aneurysm. No pericardial effusion. UPPER ABDOMEN: No significant findings. Limited exam. THYROID AND OTHER SOFT TISSUES: No masses. No adenopathy. BONES: No significant finding. HARDWARE: None in the chest. OTHER: No other significant findings. IMPRESSION: Bilateral pleural effusions left greater than right but there is fluid in the fissure on the right. Scattered ground-glass opacities. Edema versus pneumonia. TECHNICAL DOCUMENTATION: JOB ID: [id number] Quality ID # [id number]: Final reports with documentation of one or more dose reduction techniques (e.g., Au tomated exposure control, adjustment of the mA and/or kV according to patient size, use of iterative reconstruction technique) 2010 [employer]- All Rights Reserved Reading location - IP/workstation name: [email or web address]
[2018-06-28] MEDS: ALPRAZOLAM 0.25 MG TABLET PO PRN (20:26)
[2018-06-28] MEDS: ATORVASTATIN CALCIUM 10 MG TABLET PO SCH (21:22)
[2018-06-29] MEDS: BUSPIRONE HCL 10 MG TABLET PO SCH (06:21)
[2018-06-29] MEDS: HYDRALAZINE HCL 25 MG TABLET PO SCH (06:21)
[2018-06-29] MEDS: LEVALBUTEROL HCL NEB 1.25 MG/3 ML AMPUL NEB SCH ×2 (07:25→13:30)
[2018-06-29 08:05] VITALS: BP 133/45
--- NOTE | 2018-06-29 09:17 | PDOC TRANSFER SUMMARY ---
General - Admit/Disc Date/PCP Admission Date/Primary Care Provider: 06/15/18 22:55 JULIA ESPAÑA MD Discharge Date: 06/29/18 - Discharge Diagnosis (1) Right upper lobe pneumonia Is this a current diagnosis for this admission?: Yes Summary: Currently all improving Continues to p.o. antibiotic follow outpatients pulmonary (2) COPD exacerbation Is this a current diagnosis for this admission?: Yes Summary: Continue a current inhaler and as needed nebulizer treatments patient with end- stage COPD (3) Respiratory distress Is this a current diagnosis for this admission?: Yes (4) Chronic kidney disease Is this a current diagnosis for this admission?: Yes Summary: Patients follow outpatients Dr. holland (5) Diastolic congestive heart failure Is this a current diagnosis for this admission?: Yes Summary: Continues to Lasix 20 mg (6) Hypertension Is this a current diagnosis for this admission?: Yes Summary: Currently all stable (7) Hyperlipidemia Is this a current diagnosis for this admission?: Yes Summary: Currently all stable (8) Chronic atrial fibrillation Is this a current diagnosis for this admission?: Yes Summary: Since do not want to take any anticoagulations due to the history of the bleeding Continues to aspirin follow-up with the Dr. Huitron as outpatient (9) Chronic constipation Is this a current diagnosis for this admission?: Yes (10) Benign prostatic hyperplasia Is this a current diagnosis for this admission?: Yes Summary: Patient is currently on Flomax and finasteride Patients do not want to take the [place] catheter out May be considered follow with the urology make appointment to see [facility] for further opinion and care (11) Hematuria Is this a current diagnosis for this admission?: Yes Summary: All resolved (12) Cavitary lesion of lung Is this a current diagnosis for this admission?: Yes Summary: Is all resolving follow with the pulmonary - Additional Information Resuscitation Status: Do Not Resuscitate Discharge Diet: Cardiac Discharge Activity: Activity As Tolerated Prescriptions: Acetaminophen [Tylenol 325 mg Tablet] 650 mg PO Q4HP PRN #30 tablet PRN Reason: Allopurinol [Zyloprim 100 mg Tablet] 100 mg PO DAILY #30 tablet Alprazolam [Xanax 0.25 mg Tablet] 0.25 mg PO Q12 PRN #30 tablet PRN Reason: Aspirin [Ecotrin 81 mg EC Tablet] 81 mg PO DAILY #30 tabec Buspirone HCl [Buspar 10 mg Tablet] 10 mg PO Q8 #90 tablet Cefuroxime Axetil [Ceftin 500 mg Tablet] 500 mg PO Q12 #14 tablet Diltiazem HCl [Cardizem Cd 120 mg Capsule] 120 mg PO Q12 #60 cap.sr.24h Famotidine [Pepcid 20 mg Tablet] 20 mg PO BID #60 tablet Finasteride [Proscar 5 mg Tablet] 5 mg PO DAILY #30 tablet Fluticasone/Vilanterol [Breo 200-25 Mcg Ellipta 14 Dose/Dpi] 1 inh IH DAILY #1 inhaler Furosemide [Lasix 20 mg Tablet] 20 mg PO DAILY #30 tablet Guaifenesin [Mucinex Sr 600 mg Tablet.sa] 600 mg PO Q12 #60 tablet.sa Hydralazine HCl [Apresoline 25 mg Tablet] 25 mg PO Q8 #90 tablet Levalbuterol HCl [Xopenex Neb 0.63 mg/3 ml Ampul] 0.63 mg NEB RTQ6HP PRN #120 vial.neb PRN Reason: Levofloxacin [Levaquin 250 mg Tablet] 250 mg PO DAILY #7 tablet Polyethylene Glycol 3350 [Miralax Powder 17 gm/Packet] 17 gm PO DAILY #30 powd.pack Simethicone [Mylicon 80 mg Chewable Tablet] 80 mg PO Q8HP PRN #90 tab.chew PRN Reason: Tamsulosin HCl [Flomax 0.4 mg Cap.sr] 0.4 mg PO DAILY #30 cap.sr.24h Tiotropium [place] [Spiriva Handihaler 5 Cap/Kit (18 Mcg/Cap)] 1 cap IH DAILY #1 kit Home Medications: Allopurinol [Zyloprim 100 mg Tablet] 100 mg PO DAILY 06/16/18 Aspirin [Ecotrin 81 mg EC Tablet] 81 mg PO DAILY 06/16/18 Furosemide [Lasix 20 mg Tablet] 20 mg PO DAILY 06/16/18 Omeprazole 40 mg PO DAILY 06/16/18 Pravastatin Sodium [Pravachol] 20 mg PO DAILY 06/16/18 Tamsulosin HCl [Flomax 0.4 mg Cap.sr] 0.4 mg PO DAILY 06/16/18 Acetaminophen [Tylenol 325 mg Tablet] 650 mg PO Q4HP PRN #30 tablet 06/29/18 Allopurinol [Zyloprim 100 mg Tablet] 100 mg PO DAILY #30 tablet 06/29/18 Alprazolam [Xanax 0.25 mg Tablet] 0.25 mg PO Q12 PRN #30 tablet 06/29/18 Aspirin [Ecotrin 81 mg EC Tablet] 81 mg PO DAILY #30 tabec 06/29/18 Buspirone HCl [Buspar 10 mg Tablet] 10 mg PO Q8 #90 tablet 06/29/18 Cefuroxime Axetil [Ceftin 500 mg Tablet] 500 mg PO Q12 #14 tablet 06/29/18 Diltiazem HCl [Cardizem Cd 120 mg Capsule] 120 mg PO Q12 #60 cap.sr.24h 06/29/18 Famotidine [Pepcid 20 mg Tablet] 20 mg PO BID #60 tablet 06/29/18 Finasteride [Proscar 5 mg Tablet] 5 mg PO DAILY #30 tablet 06/29/18 Fluticasone/Vilanterol [Breo 200-25 Mcg Ellipta 14 Dose/Dpi] 1 inh IH DAILY #1 inhaler 06/29/18 Furosemide [Lasix 20 mg Tablet] 20 mg PO DAILY #30 tablet 06/29/18 Guaifenesin [Mucinex Sr 600 mg Tablet.sa] 600 mg PO Q12 #60 tablet.sa 06/29/18 Hydralazine HCl [Apresoline 25 mg Tablet] 25 mg PO Q8 #90 tablet 06/29/18 Levalbuterol HCl [Xopenex Neb 0.63 mg/3 ml Ampul] 0.63 mg NEB RTQ6HP PRN #120 vial.neb 06/29/18 Levofloxacin [Levaquin 250 mg Tablet] 250 mg PO DAILY #7 tablet 06/29/18 Polyethylene Glycol 3350 [Miralax Powder 17 gm/Packet] 17 gm PO DAILY #30 powd.pack 06/29/18 Simethicone [Mylicon 80 mg Chewable Tablet] 80 mg PO Q8HP PRN #90 tab.chew 06/29/18 Tamsulosin HCl [Flomax 0.4 mg Cap.sr] 0.4 mg PO DAILY #30 cap.sr.24h 06/29/18 Tiotropium [place] [Spiriva Handihaler 5 Cap/Kit (18 Mcg/Cap)] 1 cap IH DAILY #1 kit 06/29/18 History of Present Illness Admission Date/PCP: 06/15/18 22:55 JULIA ESPAÑA MD History of Present Illness: FAHEEM TOMAS is a 83 year old male This is a 83-year-old male with a history of the hypertension diastolic congestive heart failure chronic A. fib unable to tolerate anticoagulation in patients who do not want to do that chronic kidney disease stage III with the b aseline creatinine is 1.7 history of the COPD came to the emergency department with a complaining of cough congestions for the last 4 days not getting better in the ER patient was tachypneic and also found the pneumonia patient was giving the IV Solu-Medrol and IV antibiotics and nebulizer treatments Patient's currently feeling better still requiring 2 L nasal cannula Patient have a leg swelling in the ER when he came first but he usually patient have that at nighttime and usually resolve during the morning when I saw the patient's there was no leg swelling Patient's denied any chest pain Patient still having some cough with productive sputum Patient's denied any fever no chills Hospital Course Hospital Course: This is a 83-year-old male with a significant history of end-stage COPD history of the chronic A. fib history of the chronic kidney disease and multiple other comorbidity came to the emergency departments with a complaining of shortness of the breath cough and congestions and diagnosed with a pneumonia Patient's treated with the IV antibiotics and nebulizer treatments and IV steroids Patient seen by the pulmonary Dr. Sanchez and suggest the significant end-stage COPD maximum treatment offer Patient also seen by Dr. Cornell and adjust the medications for the A. fib and suggest the continues to Lasix 20 mg Patients also seen by the Dr. Holland for chronic kidney disease Patient's otherwise have a CT of the chest was done and also CT abdomen pelvis was done was all stable except pneumonia Patient still very weak and p.o. intake is very poor Patient is very depressed Patient cannot able to take the Celexa which makes the patient's more weird's symptoms Patient is response very well with the PRN Xanax and continues the BuSpar for t he anxiety Patients require a 1 or 2 L nasal cannula oxygen's Very extensive discussed with the patient and the patient's son regarding the patient's current conditions with the end-stage COPD chronic kidney disease and A. fib and multiple other comorbidity not a very good prognosis The patient at this point maximum benefit from the hospitals Patient is discharged to the rehab facilities Discussed with the son today myself regarding the patient's current conditions aware about the all medical issues and not a very good prognosis Physical Exam Vital Signs: Temp Pulse Resp BP Pulse Ox 97.6 F 64 16 133/45 H 98 06/29/18 08:01 06/29/18 08:01 06/29/18 08:01 06/29/18 08:01 06/29/18 08:01 Intake & Output 06/28/18 06/29/18 06/30/18 06:59 06:59 06:59 Intake Total 1192 1155 Output Total 1125 1000 Balance 67 155 Weight 74.2 kg 76.7 kg General appearance: PRESENT: no acute distress, well-developed, well-nourished Head exam: PRESENT: atraumatic, normocephalic Eye exam: PRESENT: conjunctiva pink, EOMI, PERRLA. ABSENT: scleral icterus Ear exam: PRESENT: normal external ear exam Mouth exam: PRESENT: moist, tongue midline Neck exam: ABSENT: carotid bruit, JVD, lymphadenopathy, thyromegaly Respiratory exam: PRESENT: clear to auscultation melania. ABSENT: rales, rhonchi, wheezes Cardiovascular exam: PRESENT: RRR. ABSENT: diastolic murmur, rubs, systolic murmur Pulses: PRESENT: normal dorsalis pedis pul Vascular exam: PRESENT: normal capillary refill GI/Abdominal exam: PRESENT: normal bowel sounds, soft. ABSENT: distended, guarding, mass, organolmegaly, rebound, tenderness Rectal exam: PRESENT: deferred Extremities exam: PRESENT: full ROM. ABSENT: calf tenderness, clubbing, pedal edema Neurological exam: PRESENT: alert, awake, oriented to person, oriented to place, oriented to time, oriented to situation, CN II-XII grossly intact. ABSENT: motor sensory deficit Psychiatric exam: PRESENT: appropriate affect, normal mood. ABSENT: homicidal ideation, suicidal ideation Skin exam: PRESENT: dry, intact, warm. ABSENT: cyanosis, rash Results Laboratory Results: 06/26/18 05:44 06/28/18 06:13 06/15/18 06/16/18 19:50 03:25 NT-Pro-B Natriuret Pep 7520 H 7380 H Impressions: Renal Ultrasound 06/17/18 00:00 IMPRESSION: 1. Bilateral cortical thinning. 2. Intrarenal calculi are on the left. 3. 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 Abdomen/Pelvis CT 06/18/18 00:00 IMPRESSION: No CT evidence of bowel obstruction. No gross constipation. Descending colon diverticuli without CT signs of acute diverticulitis. Lung Scan-VQ NM 06/18/18 00:00 IMPRESSION: Low probability of pulmonary emboli. Chest X-Ray 06/26/18 00:00 IMPRESSION: STABLE APPEARANCE OF THE CHEST. Chest CT 06/28/18 00:00 IMPRESSION: Bilateral pleural effusions left greater than right but there is fluid in the fissure on the right. Scattered ground-glass opacities. Edema versus pneumonia. Transfer Plan - Time Spent with Patient Time spent with patient: Greater than 30 Minutes Qualifiers - * PATIENT BEING DISCHARGED WITH ANY OF THE FOLLOWING DIAGNOSIS: No VTE patient discharged on overlapping Therapy?: Yes Acute Heart Failure Is this a Heart Failure Patient?: No Documentation of LVEF assessment?: Yes a) Discharged on ACEI?: Yes b) Discharges on ARB?: Yes c) Discharged on ARNI?: Yes d) Discharged on evidence-based Beta bambi(carvedilol, sustained release metoprolol succinate, or bisoprolol)?: Yes e) For LVEF <35%, discharged on Aldosterone antagonist?: N/A (LVEF > or = 35%) 3. Anticoagulant therapy for permanect/persistent/paraoxysmal Afib or Aflutter: N/A Follow-up Appointment scheduled within 7 days?: Yes
[2018-06-29] MEDS: POLYETHYLENE GLYCOL 3350 POWDER 17 GM/1 PACKET PO SCH (09:56)
[2018-06-29] MEDS: FLUTICASONE NASAL SPRAY 50 MCG/SPRY 120 SPRAY/16 GM NASL SCH (09:58)
[2018-06-29] MEDS: FLUTICASONE/VILANTEROL 200-25 MCG/DOSE IH SCH (09:58)
[2018-06-29] MEDS: CEFUROXIME 500 MG TABLET PO SCH (09:59)
[2018-06-29] MEDS: TIOTROPIUM BROMIDE DPI 5 CAP/KIT (18 MCG/CAP) IH SCH (09:59)
[2018-06-29] MEDS: FAMOTIDINE 20 MG TABLET PO SCH (09:59)
[2018-06-29] MEDS: DILTIAZEM HCL 120 MG CAP.SR.24H PO SCH (09:59)
[2018-06-29] MEDS: GUAIFENESIN 600 MG TABLET.SA PO SCH (10:00)
[2018-06-29] MEDS: TAMSULOSIN HCL 0.4 MG CAP.SR.24H PO SCH (10:00)
[2018-06-29] MEDS: FINASTERIDE 5 MG TABLET PO SCH (10:00)
[2018-06-29] MEDS: DOCUSATE SODIUM 100 MG CAPSULE PO SCH (10:00)
[2018-06-29] MEDS: ASPIRIN 81 MG TABLET, ENT COATED PO SCH (10:00)
[2018-06-29] MEDS: FUROSEMIDE 20 MG TABLET PO SCH (10:00)
[2018-06-29] MEDS: ALLOPURINOL 100 MG TABLET PO SCH (10:00)
== END 2018-06-29 14:12 | DRG 193 ==
LOC: EDBD → ER 19:46 → EH 22:55 → 3N 06-16 20:46
PROVIDERS: ADMIT Family Medicine; ATTEND Family Medicine
DX: J18.1 Lobar pneumonia, unspecified organism (principal); N17.0 Acute kidney failure with tubular necrosis; J44.1 Chronic obstructive pulmonary disease with (acute) exacerbation; I13.0 Hypertensive heart and chronic kidney disease with heart failure and stage 1 through stage 4 chronic kidney disease, or unspecified chronic kidney disease; I50.32 Chronic diastolic (congestive) heart failure; Z66 Do not resuscitate; I48.2 Chronic atrial fibrillation; N18.3 Chronic kidney disease, stage 3 (moderate); I35.0 Nonrheumatic aortic (valve) stenosis; E87.5 Hyperkalemia; N40.1 Benign prostatic hyperplasia with lower urinary tract symptoms; R33.8 Other retention of urine; R31.9 Hematuria, unspecified; E78.5 Hyperlipidemia, unspecified; J98.4 Other disorders of lung; K59.09 Other constipation; Z87.891 Personal history of nicotine dependence; Z79.82 Long term (current) use of aspirin; Z79.899 Other long term (current) drug therapy
CPT/HCPCS: 36415; 36600; 71045; 71250; 74176; 76775; 78582; 80048; 80053; 81001; 82803; 82962; 83605; 83735; 83880; 85025; 85027; 87040; 87070; 87077; 87086; 87186; 87205; 87493; 93005; 93010; 93306; 93971; 94060; 94640; 96365; 96366; 96367; 99291; A9540; A9567; J0360; J0456; J0696; J1650; J1940; J1956; J2920; J3475; J3490; J7060; J7512; J7620; Q9969

== ENCOUNTER 2018-07-07 22:15 | Emergency (ER) | payer MEDICARE, OTHER ==
--- NOTE | 2018-07-07 23:04 | ER Document Report ---
ED General - General Chief Complaint: Other Stated Complaint: NEEDS BOB Time Seen by Provider: 07/07/18 22:41 Primary Care Provider: JULIA ESPAÑA MD [Primary Care Provider] - Follow up as needed Mode of Arrival: Ambulatory Information source: Patient, [facility] Records, Outside Facility Records Notes: 83-year-old male with congestive heart failure, atrial fibrillation, hypertension, COPD presents via EMS with request for Bob catheter placement. Patient's Bob catheter was removed today and he has had no urinary output since then. Patient denies any abdominal pain. He repeatedly states that he does not want any blood work and wants to be a DNR. TRAVEL OUTSIDE OF THE [place] IN LAST 30 DAYS: No - HPI Onset: This afternoon Quality of pain: No pain Severity: None Pain Level: Denies Associated symptoms: None. denies: Chest pain, Fever, Nausea, Vomiting, Shortness of breath Exacerbated by: Denies Relieved by: Denies Similar symptoms previously: Yes Recently seen / treated by doctor: Yes - Related Data Allergies/Adverse Reactions: No Known Allergies Allergy (Verified 07/08/18 00:40) Past Medical History - General Information source: Patient, [facility] Records, Outside Facility Records - Social History Smoking Status: Former Smoker Frequency of alcohol use: None Drug Abuse: None Lives with: Family Family History: Reviewed & Not Pertinent Patient has suicidal ideation: No Patient has homicidal ideation: No - Past Medical History Cardiac Medical History: Reports: Hx Atrial Fibrillation, Hx Congestive Heart Failure, Hx Hypercholesterolemia, Hx Hypertension Pulmonary Medical History: Reports: Hx COPD Renal/ Medical History: Denies: Hx Peritoneal Dialysis GI Medical History: Reports: Hx Gastroesophageal Reflux Disease Musculoskeletal Medical History: Reports Hx Arthritis Review of Systems - Review of Systems Notes: REVIEW OF SYSTEMS: CONSTITUTIONAL : Denies fever, chills, or sweats. Denies recent illness. Denies weight loss, recent hospitalizations. EENT: Denies visual changes, eye pain. Denies sore throat, oral lesions, difficulty swallowing. CARDIOVASCULAR: Denies chest pain. Denies palpitations. Denies lower extremity edema. RESPIRATORY: Denies cough. Denies shortness of breath, wheezing. GASTROINTESTINAL: Denies abdominal pain or distention. Denies nausea, vomiting, or diarrhea. Denies blood in vomitus, stools, or per rectum. Denies black, tarry stools. Denies constipation. GENITOURINARY: Denies difficulty urinating, painful urination, frequency, blood in urine, testicular pain or penile discharge. MUSCULOSKELETAL: Denies back or neck pain or stiffness. Denies joint pain or swelling. SKIN: Denies rash, lesions or sores. HEMATOLOGIC : Denies easy bruising or bleeding. LYMPHATIC: Denies swollen glands. NEUROLOGICAL: Denies confusion or altered mental status. Denies loss of consciousness. Denies dizziness or lightheadedness. Denies headache. Denies weakness or paralysis. Denies problems difficulty with ambulation, slurred spe ech. Denies sensory loss, numbness, or tingling. Denies seizures. PSYCHIATRIC: Denies anxiety or stress. Denies depression, suicidal ideation, or Physical Exam - Vital signs Vitals: Temp Pulse Resp BP Pulse Ox 97.4 F 72 22 H 155/58 H 94 07/07/18 22:15 07/07/18 22:15 07/07/18 22:15 07/07/18 22:15 07/07/18 22:15 - Notes Notes: PHYSICAL EXAMINATION: GENERAL: Well-appearing, well-nourished and in no acute distress. HEAD: Atraumatic, normocephalic. EYES: Pupils equal round and reactive to light, extraocular movements intact, sclera anicteric, conjunctiva are normal. ENT: Nares patent, oropharynx clear without exudates. Moist mucous membranes. NECK: Normal range of motion, supple without lymphadenopathy LUNGS: Breath sounds clear to auscultation bilaterally and equal. No wheezes rales or rhonchi. HEART: Regular rate and rhythm without murmurs ABDOMEN: Soft, nontender, nondistended abdomen. No guarding, no rebound. No masses appreciated. Musculoskeletal: Normal range of motion, no pitting or edema. No cyanosis. NEUROLOGICAL: Cranial nerves grossly intact. Normal speech, normal gait. Normal sensory, motor exams PSYCH: Normal mood, normal affect. SKIN: Warm, Dry, normal turgor, no rashes or lesions noted. Course - Re-evaluation Re-evalutation: Temp Pulse Resp BP Pulse Ox 97.6 F 72 22 H 135/58 H 95 07/08/18 01:59 07/07/18 22:15 07/08/18 01:53 07/08/18 01:59 07/08/18 01:53 07/08/18 02:24 83-year-old male presents from [facility] with request for Bob catheter. Patient states Bob catheter was removed today. He denies any abdominal pain but admits to not having any urinary output since removal of the catheter. Bedside ultrasound was obtained and significant for urinary retention with a bladder volume of 800 cc. Patient expresses feeling tired, sick of coming in and out of the hospital and is requesting to be a DNR which he states he was when he was in the hospital recently. Patient declining any blood work. He is alert and oriented x3. Bob catheter was placed and 900 cc of urinary output was measured. Patient was discharged home in stable condition 07/08/18 02:26 Dictation on this chart was performed using voice recognition software and may result in unintended grammatical, spelling, syntax or errors. - Vital Signs Vital signs: Temp Pulse Resp BP Pulse Ox 97.6 F 72 22 H 135/58 H 95 07/08/18 01:59 07/07/18 22:15 07/08/18 01:53 07/08/18 01:59 07/08/18 01:53 Discharge - Discharge Clinical Impression: Urinary retention, Bob catheter in place Condition: Good Disposition: SNF-Other Instructions: Bob Catheter Care ([facility]) Additional Instructions: Follow up with your [id number] hours for further care or return to the ED IMMEDIATELY if symptoms worsen or you have any concerns. If you cannot afford to follow up with your primary care physician a list of low cost clinics have been provided at the end of your discharge papers as well. Most prescribed medications have multiple side effects. The safest thing to do is when filling your prescription speak to your pharmacist regarding possible interactions with your normal home medications and over the counter medications such as Ibuprofen, Tylenol, Benadryl. If you experience any symptoms that cause you discomfort or concern you should discontinue the medication immediately and return to the emergency room or call your primary care physician. Referrals: JULIA ESPAÑA MD [Primary Care Provider] - Follow up as needed
[2018-07-08 02:11] VITALS: BP 135/58
== END 2018-07-08 02:05 ==
LOC: ER 22:15
DX: R33.9 Retention of urine, unspecified (principal); Z46.6 Encounter for fitting and adjustment of urinary device; I50.9 Heart failure, unspecified; I11.0 Hypertensive heart disease with heart failure; I48.91 Unspecified atrial fibrillation; J44.9 Chronic obstructive pulmonary disease, unspecified
CPT/HCPCS: 51702; 99283

== ENCOUNTER 2018-07-29 07:03 | Inpatient (IN) | payer MEDICARE, OTHER ==
--- NOTE | 2018-07-29 07:50 | ER Document Report ---
Entered by JAKE MCDANIEL SCRIBE 07/29/18 0747 Acting as scribe for:IVELISSE MILES MD ED General - General Stated Complaint: BREATHING DIFFICULTY Time Seen by Provider: 07/29/18 07:06 Primary Care Provider: JULIA ESPAÑA MD [Primary Care Provider] - Follow up as needed Mode of Arrival: Medic Information source: Patient Notes: Patient is an 83 year old male with HTN, HLD, CHF, COPD, chronic afib, BPH, chronic kidney disease, GERD, anxiety presents to the emergency department via EMS due to shortness of breath. Patient states he developed shortness of breath last night that persisted the entire night. EMS reports he is normally on 3L of oyxgen at the [facility], this morning is O2 saturation was 80% on 3 L. They transported him here on 4 L nasal cannula.. EMS reports administering 1 Albuterol and Atrovent treatment as well as Solu- Medrol as well as placing the patient on 4L of nasal cannula. Of note, patient was discharged from the hospital to the [facility] on June 29 for pneumonia and CHF. TRAVEL OUTSIDE OF THE [place] IN LAST 30 DAYS: No - Related Data Allergies/Adverse Reactions: No Known Allergies Allergy (Verified 07/08/18 00:40) Past Medical History - General Information source: Patient, Outside Facility Records - Social History Smoking Status: Former Smoker Cigarette use (# per day): No Chew tobacco use (# tins/day): No Smoking Education Provided: No Frequency of alcohol use: None Drug Abuse: None Lives with: Retirement Family History: Reviewed & Not Pertinent - Past Medical History Cardiac Medical History: Reports: Hx Atrial Fibrillation, Hx Congestive Heart Failure, Hx Hypercholesterolemia, Hx Hypertension Pulmonary Medical History: Reports: Hx COPD GI Medical History: Reports: Hx Gastroesophageal Reflux Disease Musculoskeletal Medical History: Reports Hx Arthritis Psychiatric Medical History: Reports: Hx Depression Review of Systems - Review of Systems Constitutional: No symptoms reported EENT: No symptoms reported Cardiovascular: No symptoms reported Respiratory: See HPI, Short of breath Gastrointestinal: No symptoms reported Genitourinary: No symptoms reported Male Genitourinary: No symptoms reported Musculoskeletal: No symptoms reported Skin: No symptoms reported Hematologic/Lymphatic: No symptoms reported Neurological/Psychological: No symptoms reported -: Yes All other systems reviewed and negative Physical Exam - Vital signs Vitals: Resp Pulse Ox 22 H 94 07/29/18 07:31 07/29/18 07:31 - Notes Notes: GENERAL: Alert, interacts well. Moderate to severe respiratory distress. HEAD: Normocephalic, atraumatic. EYES: Pupils equal, round, and reactive to light. Extraocular movements intact. ENT: Oral mucosa moist, tongue midline. NECK: Full range of motion. Supple. Trachea midline. LUNGS: Retracting, tachypneic. Rhonchi and inspiratory wheezes. Hypoxic with an oxygen saturation rate of 90% on 4L of nasal cannula on bedside monitoring manager, per my interpretation. Moderate to severe respiratory distress. HEART: Regular rate and rhythm. No murmurs, gallops, or rubs. ABDOMEN: Soft, non-tender. Non-distended. Bowel sounds present in all 4 quadrants. No guarding, rigidity, or rebound. EXTREMITIES: Moves all 4 extremities spontaneously. No edema, radial and dorsalis pedis pulses 2/4 bilaterally. No cyanosis. : Gifford catheter. NEUROLOGICAL: Alert and oriented x3. Normal speech. PSYCH: Normal affect, normal mood. SKIN: Warm, dry, normal turgor. Course - Re-evaluation Re-evalutation: 07/29/18 09:13 Patient is doing much better on BiPAP. His chest x-ray shows much worsened airspace disease compared to the last x-ray on 06/26/2018 - Vital Signs Vital signs: Temp Pulse Resp BP Pulse Ox 97.7 F 22 H 94 07/29/18 07:38 07/29/18 07:31 07/29/18 07:31 - Laboratory Result Diagrams: 07/29/18 07:30 07/29/18 07:30 Laboratory results interpreted by me: 07/29/18 07/29/18 07/29/18 07:30 07:30 07:30 RBC 3.54 L Hgb 11.0 L Hct 33.7 L RDW 14.3 H Carbonic Acid ABG pCO2 ABG pO2 ABG HCO3 ABG Total CO2 Carbon Dioxide 33 H BUN 31 H Creatinine 1.59 H Est GFR ( Amer) 50 L Est GFR (Non-Af Amer) 42 L Lactic Acid 0.6 L Creatine Kinase 32 L Total Protein 6.2 L Albumin 3.3 L 07/29/18 07:50 RBC Hgb Hct RDW Carbonic Acid 1.74 H ABG pCO2 57.9 H ABG pO2 109.9 H ABG HCO3 31.1 H ABG Total CO2 32.9 H Carbon Dioxide BUN Creatinine Est GFR ( Amer) Est GFR (Non-Af Amer) Lactic Acid Creatine Kinase Total Protein Albumin - Diagnostic Test Radiology reviewed: Image reviewed, Reports reviewed - Chest x-ray shows moderate mixed interstitial and airspace opacities including moderate patchy opacity in the right midlung field and moderate opacityeffusion in the left lower 40% hemothorax. Interval worsening compared to 06/26/2018. - EKG Interpretation by Me EKG shows normal: Fallentimber, Intervals, QRS Complexes, ST-T Waves Rate: Normal - 90 Rhythm: A.Fib When compared to previous EKG there are: No significant change Critical Care Note - Critical Care Note Total time excluding time spent on procedures (mins): 35 Discharge - Discharge Clinical Impression: COPD exacerbation, Hypoxemia, Chronic atrial fibrillation Right upper lobe pneumonia Qualifiers: Pneumonia type: due to unspecified organism Qualified Code(s): J18.1 - Lobar pneumonia, unspecified organism Condition: Fair Disposition: ADMITTED INPATIENT [facility] Unit Admitted: [facility] Referrals: JULIA ESPAÑA MD [Primary Care Provider] - Follow up as needed Scribe Attestation: 07/29/18 09:13 I personally performed the services described in the documentation, reviewed and edited the documentation which was dictated to the scribe in my presence, and it accurately records my words and actions. I personally performed the services described in the documentation, reviewed and edited the documentation which was dictated to the scribe in my presence, and it accurately records my words and actions.
--- NOTE | 2018-07-29 07:51 | EKG REPORT ---
SEVERITY:- ABNORMAL ECG - ATRIAL FIBRILLATION, V-RATE 65-101 BORDERLINE T ABNORMALITIES, LATERAL LEADS : Confirmed by: Silas Rosado MD 29-Jul-2018 07:50:57
--- NOTE | 2018-07-29 08:00 | RADIOLOGY REPORT (SQ) ---
EXAM DESCRIPTION: XR CHEST 1 VIEW COMPLETED DATE/TME: 07/29/2018 07:11 CLINICAL HISTORY: 83 years Male, COPD exacerbation, hypoxia COMPARISON: 06/26/18 NUMBER OF VIEWS/TECHNIQUE: 1/AP FINDINGS: Moderate mixed interstitial and airspace opacities includes moderate patchy opacity in the right midlung field and moderate opacity-effusion of the left lower 40% hemithorax. Interval worsening. Adequate lung volume, mildly enlarged cardiac silhouette, and intact bony thorax. IMPRESSION: Moderate mixed interstitial and airspace opacities includes moderate patchy opacity in the right midlung field and moderate opacity-effusion of the left lower 40% hemithorax. Interval worsening.
[2018-07-29 08:02] LABS: ABSOLUTE LYMPHOCYTES (AUTO) 1.5 10^3/uL (0.5-4.7); ABSOLUTE NEUT (AUTO) 6.5 10^3/uL (1.7-8.2); BASOPHILS % (AUTO) 0.3 % (0-2); EOSINOPHILS % (AUTO) 0.5 % (0-6); HEMATOCRIT 33.7 % (37.9-51.0); MEAN CORPUSCULAR HEMOGLOBIN 30.9 pg (27.0-33.4); MEAN CORPUSCULAR HGB CONC 32.5 g/dL (32.0-36.0); MEAN CORPUSCULAR VOLUME 95 fl (80-97); MONOCYTES % (AUTO) 11.4 % (3-13); PLATELET COUNT 276 10^3/uL (150-450); RED BLOOD COUNT 3.54 10^6/uL (4.35-5.55); RED CELL DISTRIBUTION WIDTH 14.3 % (11.5-14.0); SEGMENTED NEUTROPHILS % (AUTO) 71.8 % (42-78); TOTAL CELLS COUNTED % (AUTO) 100 %; WHITE BLOOD COUNT 9.1 10^3/uL (4.0-10.5)
[2018-07-29 08:11] LABS: ARTERIAL BLOOD BASE EXCESS 4.1 mmol/L; ARTERIAL BLOOD H2CO3 1.74 mmol/L (1.05-1.35); ARTERIAL BLOOD HCO3 31.1 mmol/L (20-24); ARTERIAL BLOOD O2 SATURATION 97.7 % (94-98); ARTERIAL BLOOD PCO2 57.9 mmHg (35-45); ARTERIAL BLOOD PH 7.35 (7.35-7.45); ARTERIAL BLOOD PO2 109.9 mmHg (80-100); ARTERIAL BLOOD TOTAL CO2 32.9 mmol/L (23-27)
[2018-07-29 08:14] LABS: ARTERIAL BLOOD FIO2 35%
[2018-07-29 08:26] LABS: ALANINE AMINOTRANSFERASE 27 U/L (21-72); ALBUMIN 3.3 g/dL (3.5-5.0); ALKALINE PHOSPHATASE 86 U/L (38-126); ANION GAP 10 (5-19); ASPARTATE AMINO TRANSFERASE 23 U/L (17-59); BILIRUBIN,DIRECT 0.4 mg/dL (0.0-0.4); BILIRUBIN,TOTAL 0.7 mg/dL (0.2-1.3); BLOOD UREA NITROGEN 31 mg/dL (7-20); CALCIUM 9.5 mg/dL (8.4-10.2); CARBON DIOXIDE 33 mmol/L (22-30); CHLORIDE 99 mmol/L (98-107); CREATINE KINASE 32 U/L (55-170); GLUCOSE 105 mg/dL (75-110); POTASSIUM 4.3 mmol/L (3.6-5.0); SODIUM 142.2 mmol/L (137-145); TOTAL PROTEIN 6.2 g/dL (6.3-8.2)
[2018-07-29 08:35] LABS: CREATINE KINASE MB 2.18 ng/mL (<4.55)
[2018-07-29 08:40] LABS: TROPONIN I 0.054 ng/mL
[2018-07-29] MEDS ORDERED: LEVOFLOXACIN 750 MG/D5W RTU 750 MG/150 ML RTUPB IV ONE (09:10)
[2018-07-29 09:37] LABS: APPEARANCE,URINE SLIGHTLY-CLOUDY; BILIRUBIN,URINE NEGATIVE (NEGATIVE); COLOR,URINE YELLOW; GLUCOSE, URINE NEGATIVE (NEGATIVE); KETONES,URINE NEGATIVE (NEGATIVE); LEUKOCYTE ESTERASE,URINE NEGATIVE (NEGATIVE); NITRITE,URINE NEGATIVE (NEGATIVE); PROTEIN,URINE 100 mg/dL (NEGATIVE); URINE SPECIFIC GRAVITY 1.016; UROBILINOGEN,URINE NEGATIVE mg/dL (<2.0)
[2018-07-29] MEDS ORDERED: ACETAMINOPHEN 325 MG SUPP.RECT PR PRN (12:33)
--- NOTE | 2018-07-29 13:56 | RADIOLOGY REPORT (SQ) ---
EXAM DESCRIPTION: CT CHEST WITHOUT COMPLETED DATE/TIME: 07/29/2018 1:19 pm REASON FOR STUDY: cavitary lesion of the lung COMPARISON: 06/28/2018. TECHNIQUE: CT scan performed of the chest without intravenous contrast. Images reviewed with lung, soft tissue and bone windows. Reconstructed coronal and sagittal MPR images reviewed. All images st ored on PACS. All CT scanners at this facility use dose modulation, iterative reconstruction, and/or weight based d osing when appropriate to reduce radiation dose to as low as reasonably achievable (ALARA). [facility]: Dose Right [facility]: CareDose [facility]: Dose Right [facility]: Teradose 4D [facility]: [employer] RADIATION DOSE: CT Rad equipment meets quality standard of care and radiation dose reduction techniq ues were employed. CTDIvol: 13.5 mGy. DLP: 537 mGy-cm. mGy. LIMITATIONS: Mild motion artifact. FINDINGS: LUNGS AND PLEURA: Worsening left lung aeration. Left pleural effusion has progressed, lar ge. Consolidation and collapse in the left lower lobe is also worse. More right pleural fluid is pr esent today, including increasing loculated fluid in the major fissure. Upper lobe emphysema and bro nchiectasis. Thick-walled cyst or cavity with mild adjacent patchy airspace disease in the right upp er lobe, likely stable. HILAR AND MEDIASTINAL STRUCTURES: Grossly stable mild adenopathy. HEART AND VASCULAR STRUCTURES: Cardiac enlargement. Marked coronary calcification. No aortic aneury sm. No pericardial effusion. UPPER ABDOMEN: No significant findings. Limited exam. THYROID AND OTHER SOFT TISSUES: No masses. No adenopathy. BONES: No significant finding. HARDWARE: None in the chest. OTHER: No other significant findings. IMPRESSION: 1. Worsening lung aeration. Includes progressive pleural effusions. Worsening left lower lobe conso lidation and volume loss. TECHNICAL DOCUMENTATION: JOB ID: [id number] Quality ID # [id number]: Final reports with documentation of one or more dose reduction techniques (e.g., Au tomated exposure control, adjustment of the mA and/or kV according to patient size, use of iterative reconstruction technique) 2010 [employer]- All Rights Reserved Reading location - IP/workstation name: [email or web address]
[2018-07-29 14:02] LABS: HEMATOCRIT 33.7 % (37.9-51.0); MEAN CORPUSCULAR HGB CONC 32.7 g/dL (32.0-36.0); MEAN CORPUSCULAR VOLUME 95 fl (80-97); PLATELET COUNT 242 10^3/uL (150-450); RED BLOOD COUNT 3.55 10^6/uL (4.35-5.55); RED CELL DISTRIBUTION WIDTH 14.5 % (11.5-14.0); WHITE BLOOD COUNT 9.2 10^3/uL (4.0-10.5)
[2018-07-29 14:16] LABS: INTERNATIONAL RATION (INR) 0.96; PROTHROMBIN TIME 13.3 SEC (11.4-15.4)
[2018-07-29 14:17] LABS: PARTIAL THROMBOPLASTIN TIME 20.6 SEC (23.5-35.8)
[2018-07-29 14:20] LABS: TOTAL PROTEIN 6.1 g/dL (6.3-8.2)
[2018-07-29 14:21] LABS: ABSOLUTE LYMPHOCYTES# (MANUAL) 0.1 10^3/uL (0.5-4.7); ABSOLUTE NEUTROPHILS# (MANUAL) 9.1 10^3/uL (1.7-8.2); ALANINE AMINOTRANSFERASE 22 U/L (21-72); ALBUMIN 3.3 g/dL (3.5-5.0); ALKALINE PHOSPHATASE 89 U/L (38-126); ANION GAP 10 (5-19); ASPARTATE AMINO TRANSFERASE 18 U/L (17-59); BAND NEUTROPHILS % (MANUAL) 2 % (3-5); BASOPHILS % (MANUAL) 0 % (0-2); BILIRUBIN,DIRECT 0.4 mg/dL (0.0-0.4); BILIRUBIN,TOTAL 0.6 mg/dL (0.2-1.3); BLOOD UREA NITROGEN 31 mg/dL (7-20); CALCIUM 9.7 mg/dL (8.4-10.2); CARBON DIOXIDE 32 mmol/L (22-30); CHLORIDE 100 mmol/L (98-107); EOSINOPHILS % (MANUAL) 0 % (0-6); GLUCOSE 125 mg/dL (75-110); LYMPHOCYTES % (MANUAL) 1 % (13-45); MONOCYTES % (MANUAL) 0 % (3-13); POTASSIUM 4.6 mmol/L (3.6-5.0); SEGMENTED NEUTROPHILS % (MAN) 97 % (42-78); SODIUM 141.9 mmol/L (137-145); TOTAL CELLS COUNTED 100; TOTAL PROTEIN 6.2 g/dL (6.3-8.2)
[2018-07-29 14:23] LABS: ANISOCYTOSIS SLIGHT; PLATELET COMMENT ADEQUATE
[2018-07-29] MEDS: CEFEPIME 1 GM/D5W RTU 1 GM/50 ML RTUPB IV SCH (16:19)
--- NOTE | 2018-07-29 17:10 | PDOC H&P ---
History of Present Illness Admission Date/PCP: 07/29/18 09:18 JULIA ESPAÑA MD History of Present Illness: FAHEEM TOMAS is a 83 year old male,He has multiple comorbid condition, patient is presently in the alf undergoing rehabilitation, he was recently admitted to this hospital for the management of cavitary lung lesion, suspicious for neoplasm, he was at the time treated for pneumonia, he was supposed to follow outpatient with the confidential secretary, Dr. Sanchez for possible bronchoscopy, he was supposed to see him today. He was transferred from the alf to the emergency room for evaluation of respiratory distress. In the emergency room he was evaluated chest x-ray was done that suggests pleural effusion subsequently CT chest was done, it demonstrated worsening left lung aeration. Left pleural effusion has progressed it was large there was consolidation and co llapse the left lung lobe there is a thick-walled cyst cavity with mild adjacent patchy airspace disease in the right upper lobe said to be stable. He has significant pathology of the lung. He presently requires a noninvasive positive pressure ventilation BiPAP to support breathing, patient is a DNR, he is not a candidate for Mechanical ventilation.He has other comorbid conditions including severe pulmonary hypertension with right heart failure, he has severe bilateral chronic venous hypertension of both lower extremities, is requiring compression stocking with good results Past Medical History Cardiac Medical History: Reports: Atrial Fibrillation, Hyperlipidema, Hypertension, Other - Severe pulmonary hypertension Pulmonary Medical History: Reports: Chronic Obstructive Pulmonary Disease (COPD) Renal/ Medical History: Reports: Chronic Kidney Disease, Other - Chronic urinary retention due to enlarged prostate gland requiring chronic GI Medical History: Reports: Gastroesophageal Reflux Disease Musculoskeltal Medical History: Reports: Arthritis Psychiatric Medical History: Reports: Depression Social History Lives with: [facility] Smoking Status: Former Smoker Frequency of Alcohol Use: Heavy Hx Recreational Drug Use: No Hx Prescription Drug Abuse: No - Advance Directive Resuscitation Status: Do Not Resuscitate Family History Family History: Reviewed & Not Pertinent Parental Family History Reviewed: Yes Children Family History Reviewed: Yes Sibling(s) Family History Reviewed.: Yes Medication/Allergy Home Medications: Acetaminophen [Tylenol 325 mg Tablet] 650 mg PO Q4HP PRN 07/29/18 Allopurinol [Zyloprim 100 mg Tablet] 100 mg PO QPM 07/29/18 Alprazolam [Xanax 0.25 mg Tablet] 0.25 mg PO Q12HP PRN MDD STOP TAKING 07/29/18 07/29/18 Aspirin [Ecotrin 81 mg EC Tablet] 81 mg PO QAM 07/29/18 Buspirone HCl [Buspar 10 mg Tablet] 10 mg PO Q8 07/29/18 Cefuroxime Axetil [Ceftin 500 mg Tablet] 500 mg PO Q12X7D 07/29/18 Diltiazem HCl [Cardizem Cd 120 mg Capsule] 120 mg PO Q12 07/29/18 Famotidine [Pepcid 20 mg Tablet] 20 mg PO BID 07/29/18 Finasteride [Proscar 5 mg Tablet] 5 mg PO QPM 07/29/18 Fluticasone/Vilanterol [Breo 200-25 Mcg Ellipta 14 Dose/Dpi] 1 puff IH QAM 07/29/18 Furosemide [Lasix 20 mg Tablet] 20 mg PO QAM 07/29/18 Guaifenesin [Mucinex] 600 mg PO Q12 07/29/18 Hydralazine HCl [Apresoline 25 mg Tablet] 25 mg PO Q8 07/29/18 Levalbuterol HCl [Xopenex Neb 0.63 mg/3 ml Ampul] 0.63 mg NEB RTQ6HP PRN 07/29/18 Levofloxacin [Levaquin 250 mg Tablet] 250 mg PO QAMX7D 07/29/18 Polyethylene Glycol 3350 [Miralax Powder 17 gm/Packet] 17 gm PO QAM 07/29/18 Pravastatin Sodium [Pravachol] 20 mg PO QPM 07/29/18 RX: Omeprazole 40 mg PO Q6AM 07/29/18 Simethicone [Mylicon 80 mg Chewable Tablet] 80 mg PO Q8HP PRN 07/29/18 Tamsulosin HCl [Flomax 0.4 mg Cap.sr] 0.4 mg PO QPM 07/29/18 Tiotropium [place] [Spiriva Handihaler 5 Cap/Kit (18 Mcg/Cap)] 1 puff IH QAM 07/29/18 Allergies/Adverse Reactions: No Known Allergies Allergy (Verified 07/08/18 00:40) Review of Systems Eyes: ABSENT: visual disturbances Ears: ABSENT: hearing changes Cardiovascular: ABSENT: chest pain, dyspnea on exertion, edema, orthropnea, palpitations Respiratory: PRESENT: dyspnea. ABSENT: cough, hemoptysis Gastrointestinal: ABSENT: abdominal pain, constipation, diarrhea, hematemesis, hematochezia, nausea, vomiting Genitourinary: ABSENT: dysuria, hematuria Musculoskeletal: ABSENT: joint swelling Integumentary: ABSENT: rash, wounds Neurological: ABSENT: abnormal gait, abnormal speech, confusion, dizziness, focal weakness, syncope Psychiatric: ABSENT: anxiety, depression, homidical ideation, suicidal ideation Endocrine: ABSENT: cold intolerance, heat intolerance, menstrual abnormalities, polydipsia, polyuria Hematologic/Lymphatic: ABSENT: easy bleeding, easy bruising, lymphadenopathy Physical Exam Vital Signs: Temp Pulse Resp BP Pulse Ox 97.7 F 34 H 140/70 H 94 07/29/18 07:38 07/29/18 16:01 07/29/18 16:01 07/29/18 16:01 Intake & Output 07/28/18 07/29/18 07/30/18 06:59 06:59 06:59 Intake Total 200 Balance 200 Weight 82.1 kg General appearance: PRESENT: severe distress Head exam: PRESENT: atraumatic, normocephalic Eye exam: PRESENT: PERRLA Ear exam: PRESENT: normal external ear exam Mouth exam: PRESENT: moist, tongue midline Neck exam: PRESENT: full ROM Respiratory exam: PRESENT: decreased breath sounds, rhonchi Cardiovascular exam: PRESENT: RRR, +S1, +S2 Vascular exam: PRESENT: normal capillary refill GI/Abdominal exam: PRESENT: normal bowel sounds, soft Rectal exam: PRESENT: deferred Gentrourinary exam: PRESENT: indwelling catheter Extremities exam: PRESENT: pedal edema Neurological exam: PRESENT: alert, awake, oriented to person, oriented to place, oriented to time, oriented to situation, CN II-XII grossly intact Psychiatric exam: PRESENT: appropriate affect, normal mood Skin exam: PRESENT: dry, intact, warm. ABSENT: cyanosis, rash Results Laboratory Results: 07/29/18 13:45 07/29/18 13:45 07/29/18 07/29/18 07/29/18 07:30 07:30 07:30 WBC 9.1 RBC 3.54 L Hgb 11.0 L Hct 33.7 L MCV 95 MCH 30.9 MCHC 32.5 RDW 14.3 H Plt Count 276 Seg Neutrophils % 71.8 Lymphocytes % 16.0 Monocytes % 11.4 Eosinophils % 0.5 Basophils % 0.3 Absolute Neutrophils 6.5 Absolute Lymphocytes 1.5 Absolute Monocytes 1.0 Absolute Eosinophils 0.0 Absolute Basophils 0.0 Carbonic Acid HCO3/H2CO3 Ratio ABG pH ABG pCO2 ABG pO2 ABG HCO3 ABG O2 Saturation ABG Base Excess FiO2 Sodium 142.2 Potassium 4.3 Chloride 99 Carbon Dioxide 33 H Anion Gap 10 BUN 31 H Creatinine 1.59 H Est GFR ( Amer) 50 L Est GFR (Non-Af Amer) 42 L Glucose 105 Lactic Acid 0.6 L Calcium 9.5 Total Bilirubin 0.7 AST 23 ALT 27 Alkaline Phosphatase 86 Total Protein 6.2 L Albumin 3.3 L Urine Color Urine Appearance Urine pH Ur Specific [place] Urine Protein Urine Glucose (UA) Urine Ketones Urine Blood Urine Nitrite Ur Leukocyte Esterase Urine WBC (Auto) Urine RBC (Auto) 07/29/18 07/29/18 07/29/18 07:50 09:00 13:45 WBC RBC Hgb Hct MCV MCH MCHC RDW Plt Count Seg Neutrophils % Lymphocytes % Monocytes % Eosinophils % Basophils % Absolute Neutrophils Absolute Lymphocytes Absolute Monocytes Absolute Eosinophils Absolute Basophils Carbonic Acid 1.74 H HCO3/H2CO3 Ratio 17:1 ABG pH 7.35 ABG pCO2 57.9 H ABG pO2 109.9 H ABG HCO3 31.1 H ABG O2 Saturation 97.7 ABG Base Excess 4.1 FiO2 35% Sodium Potassium Chloride Carbon Dioxide Anion Gap BUN Creatinine Est GFR ( Amer) Est GFR (Non-Af Amer) Glucose Lactic Acid Calcium Total Bilirubin AST ALT Alkaline Phosphatase Total Protein 6.1 L Albumin Urine Color YELLOW Urine Appearance SLIGHTLY-CLOUDY Urine pH 5.0 Ur Specific [place] 1.016 Urine Protein 100 H Urine Glucose (UA) NEGATIVE Urine Ketones NEGATIVE Urine Blood NEGATIVE Urine Nitrite NEGATIVE Ur Leukocyte Esterase NEGATIVE Urine WBC (Auto) 4 Urine RBC (Auto) 11 07/29/18 07/29/18 07/29/18 13:45 13:45 13:45 WBC 9.2 RBC 3.55 L Hgb 11.0 L Hct 33.7 L MCV 95 MCH 31.0 MCHC 32.7 RDW 14.5 H Plt Count 242 Seg Neutrophils % Not Reportable Lymphocytes % Not Reportable Monocytes % Not Reportable Eosinophils % Not Reportable Basophils % Not Reportable Absolute Neutrophils Not Reportable Absolute Lymphocytes Not Reportable Absolute Monocytes Not Reportable Absolute Eosinophils Not Reportable Absolute Basophils Not Reportable Carbonic Acid HCO3/H2CO3 Ratio ABG pH ABG pCO2 ABG pO2 ABG HCO3 ABG O2 Saturation ABG Base Excess FiO2 Sodium 141.9 Potassium 4.6 Chloride 100 Carbon Dioxide 32 H Anion Gap 10 BUN 31 H Creatinine 1.59 H Est GFR ( Amer) 50 L Est GFR (Non-Af Amer) 42 L Glucose 125 H Lactic Acid 1.4 Calcium 9.7 Total Bilirubin 0.6 AST 18 ALT 22 Alkaline Phosphatase 89 Total Protein 6.2 L Albumin 3.3 L Urine Color Urine Appearance Urine pH Ur Specific [place] Urine Protein Urine Glucose (UA) Urine Ketones Urine Blood Urine Nitrite Ur Leukocyte Esterase Urine WBC (Auto) Urine RBC (Auto) 07/29/18 07/29/18 07:30 07:30 Creatine Kinase 32 L CK-MB (CK-2) 2.18 Troponin I 0.054 Impressions: Chest CT 07/29/18 00:00 IMPRESSION: 1. Worsening lung aeration. Includes progressive pleural effusions. Worsening left lower lobe consolidation and volume loss. Chest X-Ray 07/29/18 07:11 IMPRESSION: Moderate mixed interstitial and airspace opacities includes moderate patchy opacity in the right midlung field and moderate opacity-effusion of the left lower 40% hemithorax. Interval worsening. Assessment & Plan - Diagnosis (1) Acute respiratory failure with hypoxia and hypercapnia Is this a current diagnosis for this admission?: Yes Plan: Patient is presently requiring noninvasive positive pressure ventilation continue the device until morning, patient is not a candidate for mechanical ventilation is a DNR status (2) Large pleural effusion Is this a current diagnosis for this admission?: Yes Plan: The CT chest demonstrated progressive left pleural effusion large with collapse left lung also found was thick-walled cavity in the right upper lobe I cannot completely rule out pneumonia, empirically start antibiotic, patient will require thoracentesis in the morning hopefully the cytology could demonstrate malignant cells if it is malignant pleural effusion (3) Cavitary lesion of lung Is this a current diagnosis for this admission?: Yes (4) Obstructive uropathy Is this a current diagnosis for this admission?: Yes Plan: He has indwelling Gifford catheter
[2018-07-29 18:52] LABS: APPEARANCE,URINE SLIGHTLY-CLOUDY; BILIRUBIN,URINE NEGATIVE (NEGATIVE); COLOR,URINE YELLOW; GLUCOSE, URINE NEGATIVE (NEGATIVE); KETONES,URINE NEGATIVE (NEGATIVE); LEUKOCYTE ESTERASE,URINE TRACE (NEGATIVE); NITRITE,URINE NEGATIVE (NEGATIVE); PROTEIN,URINE 100 mg/dL (NEGATIVE); URINE SPECIFIC GRAVITY 1.016; UROBILINOGEN,URINE NEGATIVE mg/dL (<2.0)
[2018-07-29] MEDS ORDERED: ACETAMINOPHEN 325 MG TABLET PO PRN (20:12)
[2018-07-29] MEDS ORDERED: FAMOTIDINE 20 MG TABLET PO SCH (20:15)
[2018-07-29] MEDS: BUSPIRONE HCL 10 MG TABLET PO SCH (21:09)
[2018-07-29] MEDS: HYDRALAZINE HCL 25 MG TABLET PO SCH (21:09)
[2018-07-29] MEDS: FAMOTIDINE 20 MG TABLET PO SCH (21:09)
[2018-07-29] MEDS: DILTIAZEM HCL 120 MG CAP.SR.24H PO SCH (21:09)
[2018-07-29] MEDS: TAMSULOSIN HCL 0.4 MG CAP.SR.24H PO SCH (21:10)
[2018-07-29] MEDS: FINASTERIDE 5 MG TABLET PO SCH (21:10)
[2018-07-29] MEDS: ALLOPURINOL 100 MG TABLET PO SCH (21:10)
[2018-07-30] MEDS: HYDRALAZINE HCL 25 MG TABLET PO SCH ×3 (05:48→22:05)
[2018-07-30] MEDS: BUSPIRONE HCL 10 MG TABLET PO SCH ×3 (05:48→22:05)
[2018-07-30] MEDS: PANTOPRAZOLE SODIUM 40 MG TABLET.DR PO SCH (05:49)
[2018-07-30] MEDS: POLYETHYLENE GLYCOL 3350 POWDER 17 GM/1 PACKET PO SCH (07:36)
[2018-07-30] MEDS: FLUTICASONE/VILANTEROL 200-25 MCG/DOSE IH SCH (07:37)
[2018-07-30] MEDS: TIOTROPIUM BROMIDE DPI 5 CAP/KIT (18 MCG/CAP) IH SCH (07:37)
--- NOTE | 2018-07-30 07:48 | EKG REPORT ---
SEVERITY:- ABNORMAL ECG - ATRIAL FIBRILLATION NONSPECIFIC T ABNORMALITIES, LATERAL LEADS : Confirmed by: Silas Rosado MD 30-Jul-2018 07:48:24
[2018-07-30] MEDS: LEVOFLOXACIN 750 MG/D5W RTU 750 MG/150 ML RTUPB IV SCH (10:09)
[2018-07-30] MEDS: DILTIAZEM HCL 120 MG CAP.SR.24H PO SCH ×2 (10:09→22:05)
[2018-07-30 10:14] LABS: FLUID APPEARANCE CLEAR; FLUID COLOR YELLOW; FLUID SOURCE ABDOMEN; FLUID TYPE PLEURAL; FLUID VISCOSITY LIQUID
--- NOTE | 2018-07-30 10:19 | RADIOLOGY REPORT (SQ) ---
EXAM DESCRIPTION: U/S THORACENTESIS WITH IMAGING COMPLETED DATE/TIME: 07/30/2018 9:57 am REASON FOR STUDY: pleural effusion COMPARISON: Chest x-ray and chest CT dated 07/29/2018. LIMITATIONS: None. PROCEDURE: Procedure, risks, benefit, and alternative explained to patient who then gave written con sent. The posterior left chest wall was marked using ultrasound guidance. A time-out was called for correct marking verification. Chest prepped and draped using sterile technique. Local anesthesia ac hieved using 10 ml of 1% lidocaine injection. A 6fr Safe-T- Centesis set was introduced into the lef t pleural space. Fluid was aspirated. The catheter was removed and the entry site was covered with sterile bandage. No immediate complications noted. Images acquired during the procedure were stored on PACS. FINDINGS: ENTRY SITE: posterior left chest. FLUID VOLUME: 800 mL. FLUID ANALYSIS: Straw-colored. OTHER: Fluid sent to the lab for testing. IMPRESSION: SUCCESSFUL THORACENTESIS USING ULTRASOUND GUIDANCE. COMMENT: Patient medication list reviewed: Yes- Quality ID# [id number]:Eligible professional attests to doc umenting in the medical record they obtained, updated, or reviewed the patient's current medications. TECHNICAL DOCUMENTATION: JOB ID: [id number] [employer]- All Rights Reserved Reading location - IP/workstation name: [email or web address]
--- NOTE | 2018-07-30 10:20 | RADIOLOGY REPORT (SQ) ---
EXAM DESCRIPTION: CHEST SINGLE VIEW COMPLETED DATE/TIME: 07/30/2018 9:48 am REASON FOR STUDY: S/P THORACENTESIS COMPARISON: 07/29/2018. EXAM PARAMETERS: NUMBER OF VIEWS: One view. TECHNIQUE: Single frontal radiographic view of the chest acquired. RADIATION DOSE: NA LIMITATIONS: None. FINDINGS: LUNGS AND PLEURA: Interval decrease in the left pleural effusion following thoracentesis. No pneumothorax. Improved aeration in the right lung. MEDIASTINUM AND HILAR STRUCTURES: No masses. Contour normal. HEART AND VASCULAR STRUCTURES: Heart normal in size. Normal vasculature. BONES: No acute findings. HARDWARE: None in the chest. OTHER: No other significant finding. IMPRESSION: NO PNEUMOTHORAX FOLLOWING LEFT THORACENTESIS. IMPROVED AERATION IN THE RIGHT LUNG. TECHNICAL DOCUMENTATION: JOB ID: [id number] [employer]- All Rights Reserved Reading location - IP/workstation name: [email or web address]
--- NOTE | 2018-07-30 12:31 | RADIOLOGY REPORT (SQ) ---
EXAM DESCRIPTION: CHEST SINGLE VIEW COMPLETED DATE/TIME: 07/30/2018 12:09 pm REASON FOR STUDY: S/P THORACENTESIS COMPARISON: 07/30/2018 EXAM PARAMETERS: NUMBER OF VIEWS: One view. TECHNIQUE: Single frontal radiographic view of the chest acquired. RADIATION DOSE: NA LIMITATIONS: None. FINDINGS: LUNGS AND PLEURA: Stable small left pleural effusion. Mild chronic opacification of the l ervin bases. MEDIASTINUM AND HILAR STRUCTURES: No masses. Contour normal. HEART AND VASCULAR STRUCTURES: Cardiomegaly. No cathryn pulmonary edema. BONES: No acute findings. HARDWARE: None in the chest. OTHER: No other significant finding. IMPRESSION: Cardiomegaly without cathryn pulmonary edema. Residual left pleural effusion. No pneumot horax. TECHNICAL DOCUMENTATION: JOB ID: [id number] [employer]- All Rights Reserved Reading location - IP/workstation name: [email or web address]
[2018-07-30 15:00] LABS: HEMATOCRIT 31.2 % (37.9-51.0); HEMOGLOBIN 10.1 g/dL (13.5-17.0); MEAN CORPUSCULAR HEMOGLOBIN 30.5 pg (27.0-33.4); MEAN CORPUSCULAR HGB CONC 32.5 g/dL (32.0-36.0); MEAN CORPUSCULAR VOLUME 94 fl (80-97); PLATELET COUNT 246 10^3/uL (150-450); RED BLOOD COUNT 3.32 10^6/uL (4.35-5.55); RED CELL DISTRIBUTION WIDTH 14.1 % (11.5-14.0); WHITE BLOOD COUNT 16.8 10^3/uL (4.0-10.5)
[2018-07-30 15:18] LABS: ALANINE AMINOTRANSFERASE 25 U/L (21-72); ALKALINE PHOSPHATASE 80 U/L (38-126); ANION GAP 7 (5-19); ASPARTATE AMINO TRANSFERASE 17 U/L (17-59); BILIRUBIN,DIRECT 0.3 mg/dL (0.0-0.4); BILIRUBIN,TOTAL 0.3 mg/dL (0.2-1.3); BLOOD UREA NITROGEN 45 mg/dL (7-20); CALCIUM 9.4 mg/dL (8.4-10.2); CARBON DIOXIDE 33 mmol/L (22-30); CHLORIDE 100 mmol/L (98-107); GLUCOSE 95 mg/dL (75-110); POTASSIUM 4.7 mmol/L (3.6-5.0); SODIUM 140.2 mmol/L (137-145); TOTAL PROTEIN 5.6 g/dL (6.3-8.2)
[2018-07-30 15:29] LABS: ABSOLUTE LYMPHOCYTES# (MANUAL) 0.7 10^3/uL (0.5-4.7); ABSOLUTE MONOCYTES # (MANUAL) 0.3 10^3/uL (0.1-1.4); ABSOLUTE NEUTROPHILS# (MANUAL) 15.8 10^3/uL (1.7-8.2); BASOPHILS % (MANUAL) 0 % (0-2); EOSINOPHILS % (MANUAL) 0 % (0-6); LYMPHOCYTES % (MANUAL) 4 % (13-45); MONOCYTES % (MANUAL) 2 % (3-13); NUCLEATED RED BLOOD CELLS 2 /100 WBC (0); SEGMENTED NEUTROPHILS % (MAN) 94 % (42-78); TOTAL CELLS COUNTED 100
[2018-07-30 15:30] LABS: POLYCHROMASIA SLIGHT
[2018-07-30 15:31] LABS: PLATELET COMMENT ADEQUATE
[2018-07-30] MEDS: CEFEPIME 1 GM/D5W RTU 1 GM/50 ML RTUPB IV SCH (15:57)
[2018-07-30] MEDS: ALLOPURINOL 100 MG TABLET PO SCH (18:25)
[2018-07-30] MEDS: TAMSULOSIN HCL 0.4 MG CAP.SR.24H PO SCH (18:25)
[2018-07-30] MEDS: FINASTERIDE 5 MG TABLET PO SCH (18:26)
--- NOTE | 2018-07-30 19:11 | PDOC PROGRESS REPORT ---
Subjective Progress Note for:: 07/30/18 Subjective:: Patient was seen by the bedside he had thoracentesis done today, he feels better, I had a long discussion with patient's family about his condition. About 800 cc of fluid was collected it was straw-colored fluid is sent for analysis, this is probably exudative pleural effusion result pending Reason For Visit: MIXED ACID BASE DISORDER,MULTIPLE CO-MORBID Physical Exam Vital Signs: Temp Pulse Resp BP Pulse Ox 98.3 F 58 L 20 125/64 92 07/30/18 14:52 07/30/18 14:52 07/30/18 14:52 07/30/18 14:52 07/30/18 14:52 Intake & Output 07/29/18 07/30/18 07/31/18 06:59 06:59 06:59 Intake Total 1100 920 Output Total 625 325 Balance 475 595 Weight 80.1 kg General appearance: PRESENT: no acute distress Eye exam: PRESENT: PERRLA Respiratory exam: PRESENT: clear to auscultation melania GI/Abdominal exam: PRESENT: soft Neurological exam: PRESENT: alert, CN II-XII grossly intact Results Laboratory Results: 07/30/18 14:42 07/30/18 14:42 07/30/18 07/30/18 07/30/18 09:25 14:42 14:42 WBC 16.8 H RBC 3.32 L Hgb 10.1 L Hct 31.2 L MCV 94 MCH 30.5 MCHC 32.5 RDW 14.1 H Plt Count 246 Seg Neutrophils % Not Reportable Lymphocytes % Not Reportable Monocytes % Not Reportable Eosinophils % Not Reportable Basophils % Not Reportable Absolute Neutrophils Not Reportable Absolute Lymphocytes Not Reportable Absolute Monocytes Not Reportable Absolute Eosinophils Not Reportable Absolute Basophils Not Reportable Sodium 140.2 Potassium 4.7 Chloride 100 Carbon Dioxide 33 H Anion Gap 7 BUN 45 H Creatinine 1.66 H Est GFR ( Amer) 48 L Est GFR (Non-Af Amer) 40 L Glucose 95 Calcium 9.4 Total Bilirubin 0.3 AST 17 ALT 25 Alkaline Phosphatase 80 Total Protein 5.6 L Albumin 3.0 L Fluid Type PLEURAL Fluid Source ABDOMEN Fluid Color YELLOW Fluid Appearance CLEAR Fluid Viscosity LIQUID Fluid WBC 295 Fluid RBC 132 07/29/18 07/29/18 07:30 07:30 Creatine Kinase 32 L CK-MB (CK-2) 2.18 Troponin I 0.054 Impressions: Chest CT 07/29/18 00:00 IMPRESSION: 1. Worsening lung aeration. Includes progressive pleural effusions. Worsening left lower lobe consolidation and volume loss. Thoracentesis Ultrasound 07/30/18 00:00 IMPRESSION: SUCCESSFUL THORACENTESIS USING ULTRASOUND GUIDANCE. Chest X-Ray 07/30/18 11:33 IMPRESSION: Cardiomegaly without cathryn pulmonary edema. Residual left pleural effusion. No pneumothorax. Assessment & Plan - Diagnosis (1) Acute respiratory failure with hypoxia and hypercapnia Is this a current diagnosis for this admission?: Yes Plan: Patient on oxygen nasal cannula (2) Large pleural effusion Is this a current diagnosis for this admission?: Yes Plan: She is status post thoracentesis, 800 cc of pleural fluid was collected (3) Cavitary lesion of lung Is this a current diagnosis for this admission?: Yes Plan: Obtain pulmonary consult (4) Obstructive uropathy Is this a current diagnosis for this admission?: Yes Plan: Continue indwelling Gifford catheter (5) Right upper lobe pneumonia Qualifiers: Pneumonia type: due to unspecified organism Qualified Code(s): J18.1 - Lobar pneumonia, unspecified organism Is this a current diagnosis for this admission?: Yes Plan: Continue IV antibiotic (6) Benign prostatic hyperplasia Qualifiers: Lower urinary tract symptom presence: symptoms present Lower urinary tract symptom detail: urinary retention Qualified Code(s): N40.1 - Benign prostatic hyperplasia with lower urinary tract symptoms; R33.8 - Other retention of urine Is this a current diagnosis for this admission?: Yes
[2018-07-30] MEDS: FAMOTIDINE 20 MG TABLET PO SCH (22:05)
[2018-07-31 05:25] LABS: ABSOLUTE LYMPHOCYTES (AUTO) 0.9 10^3/uL (0.5-4.7); ABSOLUTE MONOCYTES (AUTO) 1.1 10^3/uL (0.1-1.4); ABSOLUTE NEUT (AUTO) 11.8 10^3/uL (1.7-8.2); BASOPHILS % (AUTO) 0.1 % (0-2); HEMATOCRIT 32.3 % (37.9-51.0); HEMOGLOBIN 10.5 g/dL (13.5-17.0); LYMPHOCYTES % (AUTO) 6.7 % (13-45); MEAN CORPUSCULAR HEMOGLOBIN 30.5 pg (27.0-33.4); MEAN CORPUSCULAR HGB CONC 32.4 g/dL (32.0-36.0); MEAN CORPUSCULAR VOLUME 94 fl (80-97); PLATELET COUNT 232 10^3/uL (150-450); RED BLOOD COUNT 3.43 10^6/uL (4.35-5.55); RED CELL DISTRIBUTION WIDTH 14.4 % (11.5-14.0); SEGMENTED NEUTROPHILS % (AUTO) 85.2 % (42-78); TOTAL CELLS COUNTED % (AUTO) 100 %; WHITE BLOOD COUNT 13.9 10^3/uL (4.0-10.5)
[2018-07-31] MEDS: PANTOPRAZOLE SODIUM 40 MG TABLET.DR PO SCH (05:44)
[2018-07-31] MEDS: HYDRALAZINE HCL 25 MG TABLET PO SCH ×3 (05:44→21:17)
[2018-07-31] MEDS: BUSPIRONE HCL 10 MG TABLET PO SCH ×3 (05:44→21:17)
[2018-07-31 05:45] LABS: ALANINE AMINOTRANSFERASE 26 U/L (21-72); ALBUMIN 2.9 g/dL (3.5-5.0); ALKALINE PHOSPHATASE 72 U/L (38-126); ANION GAP 6 (5-19); ASPARTATE AMINO TRANSFERASE 18 U/L (17-59); BILIRUBIN,DIRECT 0.3 mg/dL (0.0-0.4); BILIRUBIN,TOTAL 0.3 mg/dL (0.2-1.3); BLOOD UREA NITROGEN 47 mg/dL (7-20); CALCIUM 9.5 mg/dL (8.4-10.2); CARBON DIOXIDE 33 mmol/L (22-30); CHLORIDE 101 mmol/L (98-107); GLUCOSE 95 mg/dL (75-110); POTASSIUM 4.3 mmol/L (3.6-5.0); SODIUM 139.6 mmol/L (137-145); TOTAL PROTEIN 5.4 g/dL (6.3-8.2)
[2018-07-31] MEDS: FLUTICASONE/VILANTEROL 200-25 MCG/DOSE IH SCH (09:31)
[2018-07-31] MEDS: POLYETHYLENE GLYCOL 3350 POWDER 17 GM/1 PACKET PO SCH (09:31)
[2018-07-31] MEDS: LEVOFLOXACIN 750 MG/D5W RTU 750 MG/150 ML RTUPB IV SCH (09:31)
[2018-07-31] MEDS: DILTIAZEM HCL 120 MG CAP.SR.24H PO SCH ×2 (09:32→21:17)
[2018-07-31] MEDS: TIOTROPIUM BROMIDE DPI 5 CAP/KIT (18 MCG/CAP) IH SCH (09:32)
[2018-07-31] MEDS ORDERED: FUROSEMIDE 40 MG TABLET ONE (11:47)
[2018-07-31] MEDS: FUROSEMIDE 20 MG TABLET PO SCH (15:02)
[2018-07-31] MEDS: CEFEPIME 1 GM/D5W RTU 1 GM/50 ML RTUPB IV SCH (15:44)
[2018-07-31] MEDS: TAMSULOSIN HCL 0.4 MG CAP.SR.24H PO SCH (17:54)
[2018-07-31] MEDS: ALLOPURINOL 100 MG TABLET PO SCH (17:54)
[2018-07-31] MEDS: FINASTERIDE 5 MG TABLET PO SCH (17:54)
--- NOTE | 2018-07-31 20:08 | PDOC PROGRESS REPORT ---
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 Sanchez. The initial pleural fluid analysis suggests transudate this could be falsely negative because the patient is on diuretic furosemide. The fluid cytology is pending, today's Friday the result may not be available until Friday, if the fluid cytology is negative for cancer cells and if patient is yet to be seen by his oil well fishing tool technician I will make arrangement for transfer to another hospital, I explained this to the patient he will stay the weekend till Friday I may initiate transfer if the results of the pleural fluid is negative for malignant cells which I highly suspect in this patient Reason For Visit: MIXED ACID BASE DISORDER,MULTIPLE CO-MORBID Physical Exam Vital Signs: Temp Pulse Resp BP Pulse Ox 98.1 F 62 24 H 132/53 H 92 07/31/18 16:00 07/31/18 16:00 07/31/18 16:00 07/31/18 16:00 07/31/18 16:00 Intake & Output 07/30/18 07/31/18 08/01/18 06:59 06:59 06:59 Intake Total 1100 1000 673 Output Total 625 750 275 Balance 475 250 398 Weight 80.1 kg 79.2 kg General appearance: PRESENT: no acute distress Eye exam: PRESENT: PERRLA Respiratory exam: PRESENT: clear to auscultation melania Cardiovascular exam: PRESENT: +S1, +S2 GI/Abdominal exam: PRESENT: soft Neurological exam: PRESENT: alert Results Laboratory Results: 07/31/18 04:43 07/31/18 04:43 07/30/18 07/30/18 07/30/18 09:25 09:25 09:25 WBC RBC Hgb Hct MCV MCH MCHC RDW Plt Count Seg Neutrophils % Lymphocytes % Monocytes % Eosinophils % Basophils % Absolute Neutrophils Absolute Lymphocytes Absolute Monocytes Absolute Eosinophils Absolute Basophils Sodium Potassium Chloride Carbon Dioxide Anion Gap BUN Creatinine Est GFR ( Amer) Est GFR (Non-Af Amer) Glucose Calcium Total Bilirubin AST ALT Alkaline Phosphatase Total Protein Albumin Fluid Glucose Fluid Total Protein 1.8 Fluid LDH 60 Fluid Amylase 6 07/30/18 07/31/18 07/31/18 09:25 04:43 04:43 WBC 13.9 H RBC 3.43 L Hgb 10.5 L Hct 32.3 L MCV 94 MCH 30.5 MCHC 32.4 RDW 14.4 H Plt Count 232 Seg Neutrophils % 85.2 H Lymphocytes % 6.7 L Monocytes % 8.0 Eosinophils % 0.0 Basophils % 0.1 Absolute Neutrophils 11.8 H Absolute Lymphocytes 0.9 Absolute Monocytes 1.1 Absolute Eosinophils 0.0 Absolute Basophils 0.0 Sodium 139.6 Potassium 4.3 Chloride 101 Carbon Dioxide 33 H Anion Gap 6 BUN 47 H Creatinine 1.73 H Est GFR ( Amer) 46 L Est GFR (Non-Af Amer) 38 L Glucose 95 Calcium 9.5 Total Bilirubin 0.3 AST 18 ALT 26 Alkaline Phosphatase 72 Total Protein 5.4 L Albumin 2.9 L Fluid Glucose 175 Fluid Total Protein Fluid LDH Fluid Amylase 07/29/18 18:00 Catheterized Urine Urine Culture - Final Enterococcus Faecalis(Group D) 07/29/18 07/29/18 07:30 07:30 Creatine Kinase 32 L CK-MB (CK-2) 2.18 Troponin I 0.054 Impressions: Chest CT 07/29/18 00:00 IMPRESSION: 1. Worsening lung aeration. Includes progressive pleural effusions. Worsening left lower lobe consolidation and volume loss. Thoracentesis Ultrasound 07/30/18 00:00 IMPRESSION: SUCCESSFUL THORACENTESIS USING ULTRASOUND GUIDANCE. Chest X-Ray 07/30/18 11:33 IMPRESSION: Cardiomegaly without cathryn pulmonary edema. Residual left pleural effusion. No pneumothorax. Assessment & Plan - Diagnosis (1) Acute respiratory failure with hypoxia and hypercapnia Is this a current diagnosis for this admission?: Yes Plan: Patient not presently requiring BiPAP on oxygen via nasal cannula (2) Large pleural effusion Is this a current diagnosis for this admission?: Yes Plan: The initial fluid analysis suggests transudate, this could be falsely negative for exudate because patient is on diuretic furosemide chronically (3) Cavitary lesion of lung Is this a current diagnosis for this admission?: Yes Plan: He has cavitary lesion in the lung which is suspicious for neoplasm, add vancomycin to cover MRSA (4) Obstructive uropathy Is this a current diagnosis for this admission?: Yes (5) Right upper lobe pneumonia Qualifiers: Pneumonia type: due to unspecified organism Qualified Code(s): J18.1 - Lobar pneumonia, unspecified organism Is this a current diagnosis for this admission?: Yes (6) Benign prostatic hyperplasia Qualifiers: Lower urinary tract symptom presence: symptoms present Lower urinary tract symptom detail: urinary retention Qualified Code(s): N40.1 - Benign prostatic hyperplasia with lower urinary tract symptoms; R33.8 - Other retention of urine Is this a current diagnosis for this admission?: Yes (7) Urinary tract infection associated with catheterization of urinary tract Qualifiers: Indwelling urinary catheter type: indwelling urethral catheter Encounter type: subsequent encounter Qualified Code(s): T83.511D - Infection and inflammatory reaction due to indwelling urethral catheter, subsequent encounter; N39.0 - Urinary tract infection, site not specified Is this a current diagnosis for this admission?: Yes Plan: The urine culture grew Enterococcus faecalis with > 100,000 colony count, he has indwelling Gifford catheter the bacteria could be colonization but the bacteria is resistant to Levaquin, patient presently on Levaquin and cefepime empirically for pneumonia
[2018-07-31] MEDS ORDERED: VANCOMYCIN HCL 0 MG in DEXTROSE 5%-WATER 250 ML IV NR (20:15)
[2018-07-31] MEDS: FAMOTIDINE 20 MG TABLET PO SCH (21:18)
[2018-07-31] MEDS: VANCOMYCIN HCL 1,000 MG in DEXTROSE 5%-WATER 250 ML IV SCH (22:07)
[2018-08-01] MEDS: BUSPIRONE HCL 10 MG TABLET PO SCH ×3 (05:43→21:19)
[2018-08-01] MEDS: PANTOPRAZOLE SODIUM 40 MG TABLET.DR PO SCH (05:43)
[2018-08-01] MEDS: HYDRALAZINE HCL 25 MG TABLET PO SCH ×3 (05:44→21:19)
[2018-08-01] MEDS: LEVALBUTEROL HCL NEB 0.63 MG/3 ML AMPUL NEB PRN (06:53)
[2018-08-01] MEDS: DILTIAZEM HCL 120 MG CAP.SR.24H PO SCH ×2 (10:05→21:19)
[2018-08-01] MEDS: FUROSEMIDE 20 MG TABLET PO SCH (10:05)
[2018-08-01] MEDS: LEVOFLOXACIN 750 MG/D5W RTU 750 MG/150 ML RTUPB IV SCH (10:06)
[2018-08-01] MEDS: TIOTROPIUM BROMIDE DPI 5 CAP/KIT (18 MCG/CAP) IH SCH (10:06)
[2018-08-01] MEDS: FLUTICASONE/VILANTEROL 200-25 MCG/DOSE IH SCH (10:06)
[2018-08-01] MEDS: POLYETHYLENE GLYCOL 3350 POWDER 17 GM/1 PACKET PO SCH (10:06)
[2018-08-01] MEDS ORDERED: FUROSEMIDE 20 MG TABLET PO SCH (12:00)
--- NOTE | 2018-08-01 14:52 | PDOC PROGRESS REPORT ---
Subjective Progress Note for:: 08/01/18 Subjective:: Patient remain on supplemental oxygen and BiPAP support intermittently. Awaiting cytology findings. Pulmonary work and family life consultant contribution noted. No fever or choill. No chest pain.He denied nausea, vomiting or abdominal pain. P.O intake remain fair. Reason For Visit: MIXED ACID BASE DISORDER,MULTIPLE CO-MORBID Physical Exam Vital Signs: Temp Pulse Resp BP Pulse Ox 98.6 F 71 21 H 156/53 H 96 08/01/18 11:58 08/01/18 11:58 08/01/18 11:58 08/01/18 11:58 08/01/18 11:58 Intake & Output 07/31/18 08/01/18 08/02/18 06:59 06:59 06:59 Intake Total 1000 1073 150 Output Total 750 1000 Balance 250 73 150 Weight 79.2 kg 79.5 kg General appearance: PRESENT: no acute distress Head exam: PRESENT: atraumatic, normocephalic Eye exam: PRESENT: conjunctiva pink. ABSENT: scleral icterus Ear exam: PRESENT: normal external ear exam Mouth exam: PRESENT: moist Respiratory exam: PRESENT: decreased breath sounds - at lung bases Cardiovascular exam: PRESENT: RRR. ABSENT: diastolic murmur, rubs, systolic murmur Vascular exam: ABSENT: pallor GI/Abdominal exam: PRESENT: normal bowel sounds, soft. ABSENT: distended, guarding, mass, organolmegaly, rebound, tenderness Gentrourinary exam: PRESENT: indwelling catheter Extremities exam: ABSENT: pedal edema Neurological exam: PRESENT: alert, awake, oriented to person, oriented to place, oriented to time, oriented to situation, CN II-XII grossly intact. ABSENT: motor sensory deficit Psychiatric exam: PRESENT: appropriate affect, normal mood. ABSENT: homicidal ideation, suicidal ideation Skin exam: PRESENT: dry, warm Results Laboratory Results: 07/31/18 04:43 07/31/18 04:43 07/30/18 07/30/18 07/30/18 09:25 09:25 09:25 Fluid Glucose Fluid Total Protein 1.8 Fluid LDH 60 Fluid Amylase 6 07/30/18 09:25 Fluid Glucose 175 Fluid Total Protein Fluid LDH Fluid Amylase 07/29/18 07/29/18 07:30 07:30 Creatine Kinase 32 L CK-MB (CK-2) 2.18 Troponin I 0.054 Impressions: Chest CT 07/29/18 00:00 IMPRESSION: 1. Worsening lung aeration. Includes progressive pleural effusions. Worsening left lower lobe consolidation and volume loss. Thoracentesis Ultrasound 07/30/18 00:00 IMPRESSION: SUCCESSFUL THORACENTESIS USING ULTRASOUND GUIDANCE. Chest X-Ray 07/30/18 11:33 IMPRESSION: Cardiomegaly without cathryn pulmonary edema. Residual left pleural effusion. No pneumothorax. Assessment & Plan - Diagnosis (1) Acute respiratory failure with hypoxia and hypercapnia Is this a current diagnosis for this admission?: Yes Plan: Continue current supportive care with supplemental oxygen and BiPAP management. (2) Right upper lobe pneumonia Qualifiers: Pneumonia type: due to unspecified organism Qualified Code(s): J18.1 - Lobar pneumonia, unspecified organism Is this a current diagnosis for this admission?: Yes Plan: Continue current antibiotic medication management. (3) Large pleural effusion Is this a current diagnosis for this admission?: Yes (5) Diastolic congestive heart failure Qualifiers: Heart failure chronicity: chronic Qualified Code(s): I50.32 - Chronic diastolic (congestive) heart failure Is this a current diagnosis for this admission?: Yes Plan: Continue current medication management. Follow up on pleural effusion findings. (6) Hypertension Qualifiers: Hypertension type: essential hypertension Qualified Code(s): I10 - Essential (primary) hypertension Is this a current diagnosis for this admission?: Yes Plan: Continue current medication management. (7) Obstructive uropathy Is this a current diagnosis for this admission?: Yes Plan: Continue current medication management and mcdonnell catheter usage. Review continue need from time to time. (8) Benign prostatic hyperplasia Qualifiers: Lower urinary tract symptom presence: symptoms present Lower urinary tract symptom detail: urinary retention Qualified Code(s): N40.1 - Benign prostatic hyperplasia with lower urinary tract symptoms; R33.8 - Other retention of urine Is this a current diagnosis for this admission?: Yes Plan: Continue current medication management. - Time Time Spent with patient: 25-34 minutes Medications reviewed and adjusted accordingly: Yes Anticipated discharge: Home with Homehealth Within: Other - Inpatient Certification Based on my medical assessment, after consideration of the patient's comorbidities, presenting symptoms, or acuity I expect that the services needed warrant INPATIENT care.: Yes I certify that my determination is in accordance with my understanding of Medicare's requirements for reasonable and necessary INPATIENT services [42 CFR 412.3e].: Yes Medical Necessity: Significant Comorbidiites Make Outpatient Treatment Too Risky, Need Close Monitoring Due to Risk of Patient Decompensation, Need For Continuous Telemetry Monitoring, Need for IV Antibiotics, Risk of Complication if Not Cared For in Hospital, Risk of Diagnosis Which Will Require Inpatient Eval/Care/Monitoring Post Hospital Care: D/C Strip 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
[2018-08-01] MEDS: CEFEPIME 1 GM/D5W RTU 1 GM/50 ML RTUPB IV SCH (16:28)
[2018-08-01] MEDS: FINASTERIDE 5 MG TABLET PO SCH (17:40)
[2018-08-01] MEDS: ALLOPURINOL 100 MG TABLET PO SCH (17:40)
[2018-08-01] MEDS: TAMSULOSIN HCL 0.4 MG CAP.SR.24H PO SCH (17:40)
[2018-08-01] MEDS: FAMOTIDINE 20 MG TABLET PO SCH (21:19)
[2018-08-01] MEDS: VANCOMYCIN HCL 1,000 MG in DEXTROSE 5%-WATER 250 ML IV SCH (21:19)
[2018-08-02] MEDS: HYDRALAZINE HCL 25 MG TABLET PO SCH ×3 (05:49→21:15)
[2018-08-02] MEDS: PANTOPRAZOLE SODIUM 40 MG TABLET.DR PO SCH (05:49)
[2018-08-02] MEDS: BUSPIRONE HCL 10 MG TABLET PO SCH ×3 (05:49→21:15)
[2018-08-02] MEDS: FUROSEMIDE 20 MG TABLET PO SCH (07:26)
[2018-08-02] MEDS: TIOTROPIUM BROMIDE DPI 5 CAP/KIT (18 MCG/CAP) IH SCH (07:27)
[2018-08-02] MEDS: POLYETHYLENE GLYCOL 3350 POWDER 17 GM/1 PACKET PO SCH (07:27)
[2018-08-02] MEDS: FLUTICASONE/VILANTEROL 200-25 MCG/DOSE IH SCH (07:27)
[2018-08-02] MEDS: LEVALBUTEROL HCL NEB 0.63 MG/3 ML AMPUL NEB PRN ×2 (08:25→15:20)
[2018-08-02] MEDS: LEVOFLOXACIN 750 MG/D5W RTU 750 MG/150 ML RTUPB IV SCH (09:36)
[2018-08-02] MEDS: DILTIAZEM HCL 120 MG CAP.SR.24H PO SCH ×2 (09:36→21:14)
--- NOTE | 2018-08-02 14:59 | PDOC PROGRESS REPORT ---
Subjective Progress Note for:: 08/02/18 Subjective:: Patient eported breathing still somewhat labored. Remain on supplemental oxygen and BiPAP support as needed. No chest pain. No fever or chills. I spoke with Dr. guevara yesterday and he will not be available for consult for couple of weeks hence has refused to accept requested consult. Reason For Visit: MIXED ACID BASE DISORDER,MULTIPLE CO-MORBID Physical Exam Vital Signs: Temp Pulse Resp BP Pulse Ox 97.9 F 79 31 H 144/56 H 95 08/02/18 12:30 08/02/18 14:00 08/02/18 13:04 08/02/18 12:30 08/02/18 12:30 Intake & Output 08/01/18 08/02/18 08/03/18 06:59 06:59 06:59 Intake Total 1073 1400 150 Output Total 1000 1280 Balance 73 120 150 Weight 79.5 kg 79.7 kg Physical Exam: General appearance: PRESENT: no acute distress Head exam: PRESENT: atraumatic, normocephalic Eye exam: PRESENT: conjunctiva pink. ABSENT: pallor, scleral icterus Ear exam: PRESENT: normal external ear exam Mouth exam: PRESENT: moist Respiratory exam: PRESENT: decreased breath sounds - at lung bases Cardiovascular exam: PRESENT: RRR. ABSENT: diastolic murmur, rubs, systolic murmur GI/Abdominal exam: PRESENT: normal bowel sounds, soft. ABSENT: distended, guarding, mass, organomegaly, rebound, tenderness Gentrourinary exam: PRESENT: indwelling catheter Extremities exam: ABSENT: pedal edema Neurological exam: PRESENT: alert, awake, oriented to person, oriented to place, oriented to time, oriented to situation, CN II-XII grossly intact. ABSENT: motor sensory deficit Psychiatric exam: PRESENT: appropriate affect, normal mood. ABSENT: homicidal ideation, suicidal ideation Skin exam: PRESENT: dry, warm Results Laboratory Results: 07/31/18 04:43 07/31/18 04:43 07/30/18 09:25 Pleural Fluid - Left Pleural Effusion Fungal Smear - Final 07/30/18 09:25 Pleural Fluid - Left Pleural Effusion Fungal Smear - Final 07/30/18 09:25 Pleural Fluid - Left Pleural Effusion Gram Stain - Final 07/29/18 07/29/18 07:30 07:30 Creatine Kinase 32 L CK-MB (CK-2) 2.18 Troponin I 0.054 Impressions: Chest CT 07/29/18 00:00 IMPRESSION: 1. Worsening lung aeration. Includes progressive pleural effusions. Worsening left lower lobe consolidation and volume loss. Thoracentesis Ultrasound 07/30/18 00:00 IMPRESSION: SUCCESSFUL THORACENTESIS USING ULTRASOUND GUIDANCE. Chest X-Ray 07/30/18 11:33 IMPRESSION: Cardiomegaly without cathryn pulmonary edema. Residual left pleural effusion. No pneumothorax. Assessment & Plan - Diagnosis (1) Acute respiratory failure with hypoxia and hypercapnia Is this a current diagnosis for this admission?: Yes (2) Right upper lobe pneumonia Qualifiers: Pneumonia type: due to unspecified organism Qualified Code(s): J18.1 - Lobar pneumonia, unspecified organism Is this a current diagnosis for this admission?: Yes (3) Large pleural effusion Is this a current diagnosis for this admission?: Yes (5) Diastolic congestive heart failure Qualifiers: Heart failure chronicity: chronic Qualified Code(s): I50.32 - Chronic diastolic (congestive) heart failure Is this a current diagnosis for this admission?: Yes (6) Hypertension Qualifiers: Hypertension type: essential hypertension Qualified Code(s): I10 - Essential (primary) hypertension Is this a current diagnosis for this admission?: Yes (7) Obstructive uropathy Is this a current diagnosis for this admission?: Yes (8) Benign prostatic hyperplasia Qualifiers: Lower urinary tract symptom presence: symptoms present Lower urinary tract symptom detail: urinary retention Qualified Code(s): N40.1 - Benign prostatic hyperplasia with lower urinary tract symptoms; R33.8 - Other retention of urine Is this a current diagnosis for this admission?: Yes - Time Time Spent with patient: 25-34 minutes Medications reviewed and adjusted accordingly: Yes Anticipated discharge: Home with Homehealth, SNF Within: Other - Inpatient Certification Based on my medical assessment, after consideration of the patient's comorbidities, presenting symptoms, or acuity I expect that the services needed warrant INPATIENT care.: Yes I certify that my determination is in accordance with my understanding of Medicare's requirements for reasonable and necessary INPATIENT services [42 CFR 412.3e].: Yes Medical Necessity: Significant Comorbidiites Make Outpatient Treatment Too Risky, Need Close Monitoring Due to Risk of Patient Decompensation, Need For Continuous Telemetry Monitoring, Need for Pain Control, Risk of Complication if Not Cared For in Hospital, Risk of Diagnosis Which Will Require Inpatient Estee l/Care/Monitoring Post Hospital Care: D/C or Transfer Summary - Plan Summary Plan Summary: Continue current medication management. Possible transfer to tertiary center for further for further evaluation and management.
[2018-08-02] MEDS: ALPRAZOLAM 0.25 MG TABLET PO PRN (15:07)
[2018-08-02] MEDS: CEFEPIME 1 GM/D5W RTU 1 GM/50 ML RTUPB IV SCH (15:07)
[2018-08-02] MEDS: TAMSULOSIN HCL 0.4 MG CAP.SR.24H PO SCH (17:03)
[2018-08-02] MEDS: ALLOPURINOL 100 MG TABLET PO SCH (17:03)
[2018-08-02] MEDS: FINASTERIDE 5 MG TABLET PO SCH (17:03)
[2018-08-02] MEDS: VANCOMYCIN HCL 1,000 MG in DEXTROSE 5%-WATER 250 ML IV SCH (21:15)
[2018-08-02] MEDS: FAMOTIDINE 20 MG TABLET PO SCH (21:15)
[2018-08-03] MEDS: HYDRALAZINE HCL 25 MG TABLET PO SCH ×3 (05:49→21:11)
[2018-08-03] MEDS: PANTOPRAZOLE SODIUM 40 MG TABLET.DR PO SCH (05:49)
[2018-08-03] MEDS: BUSPIRONE HCL 10 MG TABLET PO SCH ×3 (05:49→21:11)
[2018-08-03] MEDS: TIOTROPIUM BROMIDE DPI 5 CAP/KIT (18 MCG/CAP) IH SCH (07:01)
[2018-08-03] MEDS: FLUTICASONE/VILANTEROL 200-25 MCG/DOSE IH SCH (07:02)
[2018-08-03] MEDS: LEVALBUTEROL HCL NEB 0.63 MG/3 ML AMPUL NEB PRN ×2 (07:23→19:43)
[2018-08-03] MEDS: DILTIAZEM HCL 120 MG CAP.SR.24H PO SCH ×2 (09:17→21:11)
[2018-08-03] MEDS: FUROSEMIDE 20 MG TABLET PO SCH (09:17)
[2018-08-03] MEDS: POLYETHYLENE GLYCOL 3350 POWDER 17 GM/1 PACKET PO SCH (09:17)
--- NOTE | 2018-08-03 15:55 | PDOC TRANSFER SUMMARY ---
General Admission Date/PCP: 07/29/18 09:18 JULIA ESPAÑA MD Admission Date: 07/29/18 Transfer Date: 08/03/18 Accepting Facility: [facility] Resuscitation Status: Do Not Resuscitate - Transfer Diagnosis (1) Acute respiratory failure with hypoxia and hypercapnia Is this a current diagnosis for this admission?: Yes (2) Large pleural effusion Is this a current diagnosis for this admission?: Yes (3) Cavitary lesion of lung Is this a current diagnosis for this admission?: Yes (4) Obstructive uropathy Is this a current diagnosis for this admission?: Yes (5) Right upper lobe pneumonia Is this a current diagnosis for this admission?: Yes (6) Benign prostatic hyperplasia Is this a current diagnosis for this admission?: Yes (7) Urinary tract infection associated with catheterization of urinary tract Is this a current diagnosis for this admission?: Yes - Transfer Medications Home Medications: Acetaminophen [Tylenol 325 mg Tablet] 650 mg PO Q4HP PRN 07/29/18 Allopurinol [Zyloprim 100 mg Tablet] 100 mg PO QPM 07/29/18 Alprazolam [Xanax 0.25 mg Tablet] 0.25 mg PO Q12HP PRN MDD STOP TAKING 07/29/18 07/29/18 Aspirin [Ecotrin 81 mg EC Tablet] 81 mg PO QAM 07/29/18 Buspirone HCl [Buspar 10 mg Tablet] 10 mg PO Q8 07/29/18 Cefuroxime Axetil [Ceftin 500 mg Tablet] 500 mg PO Q12X7D 07/29/18 Diltiazem HCl [Cardizem Cd 120 mg Capsule] 120 mg PO Q12 07/29/18 Famotidine [Pepcid 20 mg Tablet] 20 mg PO BID 07/29/18 Finasteride [Proscar 5 mg Tablet] 5 mg PO QPM 07/29/18 Fluticasone/Vilanterol [Breo 200-25 Mcg Ellipta 14 Dose/Dpi] 1 puff IH QAM 07/12 Furosemide [Lasix 20 mg Tablet] 20 mg PO QAM 07/29/18 Guaifenesin [Mucinex] 600 mg PO Q12 07/29/18 Hydralazine HCl [Apresoline 25 mg Tablet] 25 mg PO Q8 07/29/18 Levalbuterol HCl [Xopenex Neb 0.63 mg/3 ml Ampul] 0.63 mg NEB RTQ6HP PRN 07/29/18 Levofloxacin [Levaquin 250 mg Tablet] 250 mg PO QAMX7D 07/29/18 Polyethylene Glycol 3350 [Miralax Powder 17 gm/Packet] 17 gm PO QAM 07/29/18 Pravastatin Sodium [Pravachol] 20 mg PO QPM 07/29/18 RX: Omeprazole 40 mg PO Q6AM 07/29/18 Simethicone [Mylicon 80 mg Chewable Tablet] 80 mg PO Q8HP PRN 07/29/18 Tamsulosin HCl [Flomax 0.4 mg Cap.sr] 0.4 mg PO QPM 07/29/18 Tiotropium Steedman [Spiriva Handihaler 5 Cap/Kit (18 Mcg/Cap)] 1 puff IH QAM 07/29/18 Transfer Medications: Current Medications Acetaminophen (Tylenol 325 Mg Supp) 325 mg MD Q4HP PRN PRN Reason: temp or pain Stop: 08/28/18 12:32 Acetaminophen (Tylenol 325 Mg Tablet) 650 mg PO Q4HP PRN PRN Reason: PAIN OR FEVER Stop: 08/28/18 20:11 Allopurinol (Zyloprim 100 Mg Tablet) 100 mg PO QPM [facility] Stop: 08/28/18 20:59 Last Admin: 08/02/18 17:03 Dose: 100 mg Documented by: Alprazolam (Xanax 0.25 Mg Tablet) 0.25 mg PO Q12HP PRN PRN Reason: ANXIETY Stop: 08/05/18 20:11 Last Admin: 08/02/18 15:07 Dose: 0.25 mg Documented by: Buspirone HCl (Buspar 10 Mg Tablet) 10 mg PO Q8 [facility] Stop: 08/28/18 21:59 Last Admin: 08/03/18 14:40 Dose: 10 mg Documented by: Diltiazem HCl (Cardizem Cd 120 Mg Capsule) 120 mg PO Q12 [facility] Stop: 08/28/18 21:59 Last Admin: 08/03/18 09:17 Dose: 120 mg Documented by: Famotidine (Pepcid 20 Mg Tablet) 20 mg PO QHS [facility] Stop: 08/28/18 21:59 Last Admin: 08/02/18 21:15 Dose: 20 mg Documented by: Finasteride (Proscar 5 Mg Tablet) 5 mg PO QPM [facility] Stop: 08/28/18 20:59 Last Admin: 08/02/18 17:03 Dose: 5 mg Documented by: Fluticasone/Vilanterol (Breo 200-25 Mcg Ellipta 14 Dose/Dpi) 1 inh IH QAM [facility] Stop: 08/29/18 07:59 Last Admin: 08/03/18 07:02 Dose: 1 inhaler Documented by: Furosemide (Lasix 20 Mg Tablet) 20 mg PO QAM [facility] Stop: 08/30/18 14:29 Last Admin: 08/03/18 09:17 Dose: 20 mg Documented by: Hydralazine HCl (Apresoline 25 Mg Tablet) 25 mg PO Q8 [facility] Stop: 08/28/18 21:59 Last Admin: 08/03/18 14:41 Dose: 25 mg Documented by: Cefepime HCl (Maxipime Rtu 1 Gm/D5w 50 Ml Premix Bag) 1 gm in 50 mls @ 100 mls/hr IV DAILY@1600 [facility] Stop: 08/05/18 15:59 Last Infusion: 08/02/18 15:39 Dose: Infused Documented by: Vancomycin HCl 1,000 mg/ (Dextrose) 250 mls @ 166.667 mls/hr IV QHS [facility] Stop: 08/07/18 21:59 Last Infusion: 08/02/18 22:45 Dose: Infused Documented by: Levofloxacin/Dextrose (Levaquin Rtu 750 Mg/D5w 150 Ml Premix) 750 mg in 150 mls @ 100 mls/hr IV Q2DAYS [facility] Stop: 08/11/18 09:59 Levalbuterol HCl (Xopenex Neb 0.63 Mg/3 Ml Ampul) 0.63 mg NEB RTQ6HP PRN PRN Reason: SHORTNESS OF BREATH Stop: 08/28/18 20:11 Last Admin: 08/03/18 07:23 Dose: 0.63 mg Documented by: Pantoprazole Sodium (Protonix [address] Tablet) 40 mg PO Q6AM [facility] Stop: 08/29/18 05:59 Last Admin: 08/03/18 05:49 Dose: 40 mg Documented by: Polyethylene Glycol (Miralax Powder 17 Gm/Packet) 17 gm PO QAM [facility] Stop: 08/29/18 07:59 Last Admin: 08/03/18 09:17 Dose: 17 gm Documented by: Sodium Chloride (Saline Flush 2.5 Ml Monoject Prefil Syrin) 2.5 ml IV Q8 [facility] Stop: 08/28/18 13:59 Last Admin: 08/03/18 14:41 Dose: 2.5 ml Documented by: Tamsulosin HCl (Flomax 0.4 Mg Cap.Sr) 0.4 mg PO QPM [facility] Stop: 08/28/18 20:59 Last Admin: 08/02/18 17:03 Dose: 0.4 mg Documented by: Tiotropium Steedman (Spiriva Handihaler 5 Cap/Kit (18 Mcg/Cap)) 1 cap IH QAM [facility] Stop: 08/29/18 07:59 Last Admin: 08/03/18 07:01 Dose: 1 cap Documented by: - Allergies Allergies/Adverse Reactions: No Known Allergies Allergy (Verified 07/08/18 00:40) Hospital Course Hospital Course: Patient is 83-year-old male with multiple comorbid conditions, he was admitted on 07/29/2018 when he presented with acute respiratory distress. Before this presentation he was admitted initially in this hospital on 06/15/2018 he was discharged on 06/29/2018 at that time he was diagnosed with right upper lobe cavitary lesion, he was treated for pneumonia, he had 3 sets of negative sputum for AFB, he was seen by the tower loader operator Dr. Sanchez, he was transferred to the [facility] for rehabilitation with the intent for him to have outpatient bronchoscopy, he was supposed to see the tower loader operator on 07/29/2018 that was the day he presented to the emergency room with shortness of breath. The chest x-ray that was done in the ER demonstrated left pleural effusion subsequent CT chest without contrast demonstrated worsening left lung aeration, left lung pleural effusion has progressed it was large there was collapse and consolidation of the left lower lobe also found was a loculated fluid in the major fissure with upper lobe emphysema and bronchiectasis the cavity the right upper lobe is thick-walled with adjacent patchy airspace disease. He underwent thoracentesis 800 cc of fluid was collected, the cytology was negative for malignant cells, the analysis of the fluid was consistent with transudate, this is probably a false negative for exudate because patient is on furosemide chronically. He was empirically treated with IV antibiotic including vancomycin, cefepime and Levaquin. He also have indwelling Gifford catheter due to urinary retention from enlarged prostate gland, he has a baseline CKD stage III. He was supposed to follow with urology regarding his prostate enlargement, presently on tamsulosin and finasteride for the enlarged prostate gland. He is respiration was supported with BiPAP machine in the hospital, unfortunately there is no tower loader operator presently environmental health safety engineer to see this patient the plan is to transfer him to tertiary care for diagnostic evaluation the etiology of the cavitary lesion is still not clear but I suspect neoplasm especially in a patient with tobacco use for many years. He has other comorbid conditions including chronic atrial fibrillation, severe pulmonary l hypertension secondary the urine culture grew Enterococcus faecalis, he has indwelling Gifford catheter, this could also represent colonization Physical Exam Vital Signs: Temp Pulse Resp BP Pulse Ox 97.9 F 65 20 152/54 H 93 08/03/18 11:23 08/03/18 11:23 08/03/18 11:23 08/03/18 11:23 08/03/18 11:23 Intake & Output 08/02/18 08/03/18 08/04/18 06:59 06:59 06:59 Intake Total 1400 1570 735 Output Total 1280 1080 200 Balance 120 490 535 Weight 79.7 kg 80.6 kg General appearance: PRESENT: no acute distress Eye exam: PRESENT: PERRLA Respiratory exam: PRESENT: rales Cardiovascular exam: PRESENT: +S1, +S2 GI/Abdominal exam: PRESENT: soft Neurological exam: PRESENT: alert Results Laboratory Results: 07/31/18 04:43 07/31/18 04:43 07/29/18 09:40 Blood Blood Culture - Final NO GROWTH IN 5 DAYS 07/30/18 09:25 Pleural Fluid - Left Pleural Effusion Gram Stain - Final 07/30/18 09:25 Pleural Fluid - Left Pleural Effusion Body Fluid Culture - Final NO AEROBIC OR ANAEROBIC ORGANISMS RECOVERED 07/29/18 07:30 Blood Blood Culture - Final NO GROWTH IN 5 DAYS 07/30/18 09:25 Pleural Fluid - Left Pleural Effusion Fungal Smear - Final 07/30/18 09:25 Pleural Fluid - Left Pleural Effusion Fungal Smear - Final 07/29/18 07/29/18 07:30 07:30 Creatine Kinase 32 L CK-MB (CK-2) 2.18 Troponin I 0.054 Impressions: Chest CT 07/29/18 00:00 IMPRESSION: 1. Worsening lung aeration. Includes progressive pleural effusions. Worsening left lower lobe consolidation and volume loss. Thoracentesis Ultrasound 07/30/18 00:00 IMPRESSION: SUCCESSFUL THORACENTESIS USING ULTRASOUND GUIDANCE. Chest X-Ray 07/30/18 11:33 IMPRESSION: Cardiomegaly without cathryn pulmonary edema. Residual left pleural effusion. No pneumothorax.
--- NOTE | 2018-08-03 16:20 | RADIOLOGY REPORT (SQ) ---
EXAM DESCRIPTION: CHEST SINGLE VIEW COMPLETED DATE/TIME: 08/03/2018 4:02 pm REASON FOR STUDY: shortness of breath COMPARISON: 07/30/2018. EXAM PARAMETERS: NUMBER OF VIEWS: One view. TECHNIQUE: Single frontal radiographic view of the chest acquired. RADIATION DOSE: NA LIMITATIONS: None. FINDINGS: LUNGS AND PLEURA: Left basilar airspace disease. Left pleural effusion is slightly smalle r. No pneumothorax. Small right pleural effusion. MEDIASTINUM AND HILAR STRUCTURES: No masses. Contour normal. HEART AND VASCULAR STRUCTURES: Cardiomegaly. BONES: No acute findings. HARDWARE: None in the chest. OTHER: No other significant finding. IMPRESSION: LEFT PLEURAL EFFUSION IS SLIGHTLY SMALLER. NO PNEUMOTHORAX. OTHERWISE NO CHANGE. TECHNICAL DOCUMENTATION: JOB ID: [id number] [employer]- All Rights Reserved Reading location - IP/workstation name: [email or web address]
[2018-08-03] MEDS: TAMSULOSIN HCL 0.4 MG CAP.SR.24H PO SCH (17:50)
[2018-08-03] MEDS: CEFEPIME 1 GM/D5W RTU 1 GM/50 ML RTUPB IV SCH (17:50)
[2018-08-03] MEDS: ALLOPURINOL 100 MG TABLET PO SCH (17:50)
[2018-08-03] MEDS: FINASTERIDE 5 MG TABLET PO SCH (17:50)
[2018-08-03] MEDS: FAMOTIDINE 20 MG TABLET PO SCH (21:11)
[2018-08-03] MEDS: VANCOMYCIN HCL 1,000 MG in DEXTROSE 5%-WATER 250 ML IV SCH (22:27)
[2018-08-03 22:50] LABS: VANCOMYCIN,TROUGH 15.2 ug/mL (5.0-20.0)
[2018-08-04] MEDS: PANTOPRAZOLE SODIUM 40 MG TABLET.DR PO SCH (05:24)
[2018-08-04] MEDS: BUSPIRONE HCL 10 MG TABLET PO SCH ×3 (05:24→22:01)
[2018-08-04] MEDS: HYDRALAZINE HCL 25 MG TABLET PO SCH ×3 (05:26→22:02)
[2018-08-04] MEDS: LEVALBUTEROL HCL NEB 0.63 MG/3 ML AMPUL NEB PRN ×2 (05:53→13:30)
[2018-08-04] MEDS: FUROSEMIDE 20 MG TABLET PO SCH (08:01)
[2018-08-04] MEDS: POLYETHYLENE GLYCOL 3350 POWDER 17 GM/1 PACKET PO SCH (08:02)
[2018-08-04] MEDS: FLUTICASONE/VILANTEROL 200-25 MCG/DOSE IH SCH (08:02)
[2018-08-04] MEDS: TIOTROPIUM BROMIDE DPI 5 CAP/KIT (18 MCG/CAP) IH SCH ×2 (09:48→09:56)
[2018-08-04] MEDS: DILTIAZEM HCL 120 MG CAP.SR.24H PO SCH ×2 (09:48→22:01)
[2018-08-04] MEDS ORDERED: LEVOFLOXACIN 750 MG/D5W RTU 750 MG/150 ML RTUPB IV SCH (10:00)
[2018-08-04] MEDS: CEFEPIME 1 GM/D5W RTU 1 GM/50 ML RTUPB IV SCH (15:18)
[2018-08-04] MEDS ORDERED: BISACODYL 5 MG TABEC PO ONE (17:49)
[2018-08-04] MEDS: TAMSULOSIN HCL 0.4 MG CAP.SR.24H PO SCH (18:03)
[2018-08-04] MEDS: FINASTERIDE 5 MG TABLET PO SCH (18:03)
[2018-08-04] MEDS: ALLOPURINOL 100 MG TABLET PO SCH (18:04)
[2018-08-04] MEDS: VANCOMYCIN HCL 1,000 MG in DEXTROSE 5%-WATER 250 ML IV SCH (21:56)
[2018-08-04] MEDS: FAMOTIDINE 20 MG TABLET PO SCH (22:02)
[2018-08-04] MEDS: ALPRAZOLAM 0.25 MG TABLET PO PRN (22:02)
[2018-08-05] MEDS: PANTOPRAZOLE SODIUM 40 MG TABLET.DR PO SCH (06:44)
[2018-08-05] MEDS: BUSPIRONE HCL 10 MG TABLET PO SCH ×3 (06:44→21:04)
[2018-08-05] MEDS: HYDRALAZINE HCL 25 MG TABLET PO SCH ×3 (06:50→21:04)
[2018-08-05] MEDS: LEVALBUTEROL HCL NEB 0.63 MG/3 ML AMPUL NEB PRN (07:20)
[2018-08-05] MEDS: FUROSEMIDE 20 MG TABLET PO SCH (07:46)
[2018-08-05] MEDS: FLUTICASONE/VILANTEROL 200-25 MCG/DOSE IH SCH (07:47)
[2018-08-05] MEDS: TIOTROPIUM BROMIDE DPI 5 CAP/KIT (18 MCG/CAP) IH SCH (07:47)
[2018-08-05] MEDS: POLYETHYLENE GLYCOL 3350 POWDER 17 GM/1 PACKET PO SCH (07:47)
[2018-08-05] MEDS: DILTIAZEM HCL 120 MG CAP.SR.24H PO SCH ×2 (12:01→21:03)
[2018-08-05] MEDS ORDERED: FUROSEMIDE INJ/PF 40 MG/4 ML SDV IV ONE (16:30)
[2018-08-05] MEDS: FINASTERIDE 5 MG TABLET PO SCH (17:21)
[2018-08-05] MEDS: ALLOPURINOL 100 MG TABLET PO SCH (17:21)
[2018-08-05] MEDS: TAMSULOSIN HCL 0.4 MG CAP.SR.24H PO SCH (17:22)
[2018-08-05] MEDS: FAMOTIDINE 20 MG TABLET PO SCH (21:04)
[2018-08-05 21:23] VITALS: BP 138/65
== END 2018-08-05 21:38 | disposition short-term general hospital (02) | DRG 189 ==
LOC: ER 07:03 → EH 09:18 → 3N 17:04
PROVIDERS: ADMIT Internal Medicine; ATTEND Internal Medicine
PROC: 0W9B3ZX Drainage of Left Pleural Cavity, Percutaneous Approach, Diagnostic (ICD-10-PCS; principal; 2018-07-30)
DX: J96.01 Acute respiratory failure with hypoxia (principal); J18.1 Lobar pneumonia, unspecified organism; T83.511A Infection and inflammatory reaction due to indwelling urethral catheter, initial encounter; J90 Pleural effusion, not elsewhere classified; I50.32 Chronic diastolic (congestive) heart failure; J96.02 Acute respiratory failure with hypercapnia; N13.9 Obstructive and reflux uropathy, unspecified; N40.1 Benign prostatic hyperplasia with lower urinary tract symptoms; R91.1 Solitary pulmonary nodule; I12.9 Hypertensive chronic kidney disease with stage 1 through stage 4 chronic kidney disease, or unspecified chronic kidney disease; J43.9 Emphysema, unspecified; Z66 Do not resuscitate; N18.3 Chronic kidney disease, stage 3 (moderate); I48.2 Chronic atrial fibrillation; I27.20 Pulmonary hypertension, unspecified; B95.2 Enterococcus as the cause of diseases classified elsewhere; E78.5 Hyperlipidemia, unspecified; K21.9 Gastro-esophageal reflux disease without esophagitis; F32.9 Major depressive disorder, single episode, unspecified; R33.8 Other retention of urine; Z79.899 Other long term (current) drug therapy; Z87.891 Personal history of nicotine dependence; Z79.82 Long term (current) use of aspirin
CPT/HCPCS: 32555; 36415; 71045; 71250; 80053; 80202; 81001; 82150; 82550; 82553; 82803; 82945; 82962; 83605; 83615; 84155; 84157; 84484; 85025; 85610; 85730; 87040; 87070; 87075; 87086; 87088; 87101; 87186; 87205; 87252; 89050; 93005; 93010; 94640; 94660; 96365; 96366; 99291; J0692; J1940; J1956; J3370; J3490; J7060; J7614